=== PATIENT | female | born 1955 | race Two or more races ===

== ENCOUNTER 2016-11-22 13:34 | Emergency (ER) | payer MEDICARE, OTHER ==
--- NOTE | 2016-11-22 14:34 | ER Document Report ---
ED Cardiac - General Stated Complaint: CHEST PAIN Information source: Patient Notes: Patient is a 61-year-old female with past medical history including Prinzmetal angina, seizures, supposedly a myocardial infarction in 2008 "from being on a morphine drip with the reticulitis". She also states in 2001 she had a cardiac stent placed in [place] secondary to "heart spasms". Patient states today she developed some substernal chest "pressure" with radiation to her left shoulder. She states nausea and vomiting 2. She denies any diaphoresis. She also states a mild shortness of breath. She denies any calf pain, leg swelling, or recent trips or travel. Patient does state she's had some elevated blood pressure the last 2 weeks and recently had her lisinopril increased from 20 mg to 40 mg a day by her primary care physician Dr. Mata. TRAVEL OUTSIDE OF THE [place] IN LAST 30 DAYS: No - HPI Patient complains to provider of: Chest pain Was the onset of pain: Gradual Is the pain a: New problem Chest pain location: Substernal Quality of pain: Other - See above Chest pain radiation location: Left shoulder Severity now: None Severity at worst: Mild Pain level currently: Denies Cardiac risk factors: Hx [place] - See above Positive cardiac history: Yes Associated symptoms: Other - See above Exacerbated by: Denies Relieved by: Nothing Similar symptoms previously: Yes Recently seen / treated by doctor: Yes - Related Data Allergies/Adverse Reactions: ondansetron HCl [From Zofran] Allergy (Unknown, Verified 10/20/15 13:38) Sulfa (Sulfonamide Antibiotics) Allergy (Unknown, Verified 10/20/15 13:38) naproxen [Naproxen] Adverse Reaction (Unknown, Verified 10/20/15 13:38) betablockers Allergy (Uncoded 10/20/15 13:38) vicodin Adverse Reaction (Uncoded 05/12/16 22:07) Past Medical History - Social History Smoking Status: Unknown if Ever Smoked Cigarette use (# per day): No Chew tobacco use (# tins/day): No Smoking Education Provided: No Frequency of alcohol use: None Drug Abuse: None Family History: DM, Malignancy - Past Medical History Cardiac Medical History: Reports: Hx Heart Attack - x 4, Hx Hypercholesterolemia , Hx Hypertension Neurological Medical History: Reports: Hx Seizures Endocrine Medical History: Reports: Hx Diabetes Mellitus Type 1, Hx Diabetes Mellitus Type 2 GI Medical History: Reports: Hx Diverticulitis, Hx Gastroesophageal Reflux Disease Musculoskeltal Medical History: Reports Hx Multiple Sclerosis Psychiatric Medical History: Reports: Hx Depression Past Surgical History: Reports: Hx Abdominal Surgery, Hx Appendectomy, Hx Cardiac Catheterization - 1, Hx Section, Hx Cholecystectomy, Hx Kidney (Renal Surgery) - 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 Denies: Hx Genitourinary Surgery - Immunizations Immunizations up to date: Yes Hx Diphtheria, Pertussis, Tetanus Vaccination: Yes Hx Pneumococcal Vaccination: 01/18/11 Review of Systems - Review of Systems Constitutional: denies: Fever EENT: denies: Eye discharge, Nose discharge Cardiovascular: denies: Palpitations, Heart racing, Syncope, Dizziness Respiratory: denies: Short of breath Gastrointestinal: denies: Abdomen distended, Abdominal pain, Vomiting Genitourinary: denies: Dysuria Musculoskeletal: denies: Leg swelling Skin: Other - no hives. denies: Rash Neurological/Psychological: Other - no slurred speech -: Yes All other systems reviewed and negative Physical Exam - Vital signs Vitals: Resp Pulse Ox 18 95 11/22/16 13:48 11/22/16 13:48 Notes: Reviewed vital signs and nursing note as charted by RN. CONSTITUTIONAL: Alert and oriented and responds appropriately to questions. Well -appearing; well-nourished NECK: Supple without meningismus; non-tender; no cervical lymphadenopathy, no masses CARD: Regular rate and rhythm; no murmurs, no clicks, no rubs, no gallops; symmetric distal pulses RESP: Normal chest excursion without splinting or tachypnea; breath sounds clear and equal bilaterally; no wheezes, no rhonchi, no rales ABD/GI: Normal bowel sounds; non-distended; soft, non-tender, no rebound, no guarding; no palpable organomegaly or masses BACK: The back appears normal and is non-tender to palpation, there is no CVA tenderness EXT: Normal ROM in all joints; non-tender to palpation; no cyanosis, no effusions, no edema SKIN: Normal color for age and race; warm; dry; good turgor; capillary refill < 2 seconds; no acute lesions noted NEURO: Moves all extremities equally; Motor and sensory function intact PSYCH: The patient's mood and manner are appropriate. Grooming and personal hygiene are appropriate. Course - Re-evaluation Re-evalutation: EKG shows a heart of 100, sinus tachycardia, normal axis, no obvious ST elevation or depression. Flattening T waves in leads aVF, V5, with an inverted T-wave in V6. Old EKG has been obtained from September 2015 showing no obvious appreciable change. 11/22/16 14:33 Given the history and physical examination we will obtain a d-dimer, cardiac panel, and x-ray of the chest. Patient is currently pain-free and has been provided aspirin and nitroglycerin. I believe aortic dissection to be extremely unlikely. 11/22/16 17:28 CT chest shows no obvious pulmonary emboli. First troponin is unremarkable. 11/22/16 19:41 Repeat EKG shows a heart rate of 73, normal sinus rhythm, persistent poor R wave progression, no obvious ST elevation or depression. Persistent inverted T waves in leads V4 through V6. No change from previous EKG performed today. Again old EKG from 2014 shows no appreciable change. 11/22/16 19:43 Both sets of cardiac enzymes, x-ray of the chest, CTA of the chest, have been reviewed and are all unremarkable. Repeat EKG shows no change. Patient denies any chest pain at this time. Patient does admit to not taking her antiseizure medications appropriately. She states she has enough medications and does not need a refill at this time. - Vital Signs Vital signs: Temp Pulse Resp BP Pulse Ox 98.9 F 13 149/95 H 98 11/22/16 13:49 11/22/16 18:01 11/22/16 18:01 11/22/16 18:01 - Laboratory Result Diagrams: 11/22/16 14:30 11/22/16 14:30 Laboratory results interpreted by me: 11/22/16 11/22/16 14:30 14:30 D-Dimer 0.97 H Chloride 109 H BUN 30 H Est GFR (Non-Af Amer) 55 L Glucose 114 H Creatine Kinase 257 H Discharge - Discharge Clinical Impression: Chest pain Qualifiers: Chest pain type: unspecified Qualified Code(s): R07.9 - Chest pain, unspecified Condition: Good Disposition: HOME, SELF-CARE Additional Instructions: Come back immediately with any return of pain, change in location or quality of pain, shortness of breath, fevers, vomiting, or any other acute problems. Please make sure that you follow-up with your primary doctor as we have discussed and have helped expedite for you. Please take your antiseizure medications when you return home and take them regularly as directed.
[2016-11-22 14:39] LABS: ABSOLUTE EOSINOPHILS # (AUTO) 0.2 10^3/uL (0.0-0.6); ABSOLUTE LYMPHOCYTES (AUTO) 1.4 10^3/uL (0.5-4.7); ABSOLUTE MONOCYTES (AUTO) 0.4 10^3/uL (0.1-1.4); BASOPHILS % (AUTO) 0.6 % (0-2); EOSINOPHILS % (AUTO) 3.1 % (0-6); HEMATOCRIT 41.8 % (36.0-47.0); HEMOGLOBIN 13.9 g/dL (12.0-15.5); HGB HCT DIFFERENCE -0.1; MEAN CORPUSCULAR HEMOGLOBIN 30.1 pg (27.0-33.4); MEAN CORPUSCULAR HGB CONC 33.4 g/dL (32.0-36.0); MEAN CORPUSCULAR VOLUME 90 fl (80-97); RED BLOOD COUNT 4.64 10^6/uL (3.72-5.28); RED CELL DISTRIBUTION WIDTH 12.8 % (11.5-14.0); SEGMENTED NEUTROPHILS % (AUTO) 67.3 % (42-78); WHITE BLOOD COUNT 5.9 10^3/uL (4.0-10.5)
[2016-11-22 14:58] LABS: ALANINE AMINOTRANSFERASE 22 U/L (9-52); ALBUMIN 4.7 g/dL (3.5-5.0); ALKALINE PHOSPHATASE 47 U/L (38-126); ANION GAP 14 (5-19); ASPARTATE AMINO TRANSFERASE 26 U/L (14-36); BILIRUBIN,TOTAL 0.4 mg/dL (0.2-1.3); BLOOD UREA NITROGEN 30 mg/dL (7-20); CALCIUM 9.5 mg/dL (8.4-10.2); CARBON DIOXIDE 22 mmol/L (22-30); CHLORIDE 109 mmol/L (98-107); CREATINE KINASE 257 U/L (30-135); CREATININE RESULT 1.02 mg/dL (0.52-1.25); GLUCOSE 114 mg/dL (75-110); POTASSIUM 4.4 mmol/L (3.6-5.0); SODIUM 144.7 mmol/L (137-145); TOTAL PROTEIN 7.1 g/dL (6.3-8.2)
--- NOTE | 2016-11-22 14:58 | EKG REPORT ---
SEVERITY:- ABNORMAL ECG - SINUS TACHYCARDIA : Confirmed by: Maricel Darby MD 22-Nov-2016 14:57:45
[2016-11-22] MEDS ORDERED: PROMETHAZINE HCL INJ 25 MG/1 ML VIAL IV ONE (15:20)
[2016-11-22 15:21] LABS: TROPONIN I < 0.012 ng/mL
[2016-11-22] MEDS ORDERED: ACETAMINOPHEN 325 MG TABLET PO ONE (18:11)
[2016-11-22] MEDS ORDERED: MORPHINE SULFATE 10 MG/ML INJ IV ONE (20:00)
[2016-11-22 20:26] VITALS: BP 159/97
--- NOTE | 2016-11-22 21:46 | EKG REPORT ---
SEVERITY:- ABNORMAL ECG - SINUS RHYTHM ANTERIOR INFARCT, AGE INDETERMINATE BORDERLINE T ABNORMALITIES, INFERIOR LEADS : Confirmed by: Maricel Darby MD 22-Nov-2016 21:45:06
== END 2016-11-22 20:55 | disposition home or self-care (01) ==
LOC: ER 13:34
DX: R07.89 Other chest pain (principal); Z98.61 Coronary angioplasty status; R00.0 Tachycardia, unspecified; R11.2 Nausea with vomiting, unspecified; R06.02 Shortness of breath; I10 Essential (primary) hypertension; I25.2 Old myocardial infarction; E11.9 Type 2 diabetes mellitus without complications; Z79.899 Other long term (current) drug therapy; Z88.8 Allergy status to other drugs, medicaments and biological substances; Z88.2 Allergy status to sulfonamides; Z87.19 Personal history of other diseases of the digestive system; Z90.5 Acquired absence of kidney; Z91.14 Patient's other noncompliance with medication regimen
CPT/HCPCS: 93005; 99285; 96374; 96375; 36415; 82553; 82550; 85025; 80053; 84484; 85379; 71010; 71275; 93010; J2270; J2550

== ENCOUNTER → 2016-11-29 | Outpatient (CLI) | payer MEDICARE, OTHER ==
[2016-11-29 10:16] LABS: ALANINE AMINOTRANSFERASE 24 U/L (9-52); ALBUMIN 4.4 g/dL (3.5-5.0); ALKALINE PHOSPHATASE 48 U/L (38-126); ANION GAP 10 (5-19); ASPARTATE AMINO TRANSFERASE 25 U/L (14-36); BILIRUBIN,TOTAL 0.4 mg/dL (0.2-1.3); BLOOD UREA NITROGEN 19 mg/dL (7-20); CALCIUM 9.2 mg/dL (8.4-10.2); CARBON DIOXIDE 26 mmol/L (22-30); CHLORIDE 107 mmol/L (98-107); CREATINE KINASE 73 U/L (30-135); GLUCOSE 77 mg/dL (75-110); POTASSIUM 4.4 mmol/L (3.6-5.0); SODIUM 143.4 mmol/L (137-145); TOTAL PROTEIN 6.6 g/dL (6.3-8.2)
[2016-11-29 10:24] LABS: C-REACTIVE PROTEIN < 5.0 mg/L (<10.0)
[2016-11-30 08:40] LABS: COMPLEMENT C4 14 mg/dL (14-44)
[2016-11-30 08:47] LABS: COMPLEMENT C3 104 mg/dL (82-167)
[2016-11-30 14:42] LABS: COMPLEMENT TOTAL (CH50) 57 U/mL (42-60)
== END ==
LOC: OD 08:39
PROVIDERS: ATTEND Physician Assistant
DX: M79.1 Myalgia (principal); M13.0 Polyarthritis, unspecified
CPT/HCPCS: 36415; 80053; 82550; 85652; 86038; 86140; 86160; 86162; 86430

== ENCOUNTER → 2017-03-21 | Outpatient (CLI) | payer MEDICARE, OTHER ==
[2017-03-21 08:59] LABS: ABSOLUTE EOSINOPHILS # (AUTO) 0.2 10^3/uL (0.0-0.6); ABSOLUTE LYMPHOCYTES (AUTO) 1.5 10^3/uL (0.5-4.7); ABSOLUTE MONOCYTES (AUTO) 0.4 10^3/uL (0.1-1.4); ABSOLUTE NEUT (AUTO) 2.9 10^3/uL (1.7-8.2); BASOPHILS % (AUTO) 0.7 % (0-2); EOSINOPHILS % (AUTO) 3.3 % (0-6); HEMATOCRIT 39.1 % (36.0-47.0); HEMOGLOBIN 13.4 g/dL (12.0-15.5); HGB HCT DIFFERENCE 1.1; LYMPHOCYTES % (AUTO) 30.6 % (13-45); MEAN CORPUSCULAR HEMOGLOBIN 30.3 pg (27.0-33.4); MEAN CORPUSCULAR HGB CONC 34.2 g/dL (32.0-36.0); MEAN CORPUSCULAR VOLUME 89 fl (80-97); MONOCYTES % (AUTO) 7.4 % (3-13); RED BLOOD COUNT 4.41 10^6/uL (3.72-5.28); RED CELL DISTRIBUTION WIDTH 12.9 % (11.5-14.0)
[2017-03-21 09:24] LABS: ALANINE AMINOTRANSFERASE 25 U/L (9-52); ALBUMIN 4.1 g/dL (3.5-5.0); ALKALINE PHOSPHATASE 51 U/L (38-126); ANION GAP 9 (5-19); ASPARTATE AMINO TRANSFERASE 29 U/L (14-36); BILIRUBIN,DIRECT 0.3 mg/dL (0.0-0.4); BILIRUBIN,TOTAL 0.6 mg/dL (0.2-1.3); BLOOD UREA NITROGEN 19 mg/dL (7-20); CALCIUM 9.3 mg/dL (8.4-10.2); CARBON DIOXIDE 26 mmol/L (22-30); CHLORIDE 108 mmol/L (98-107); CHOLESTEROL 214.29 mg/dL (0-200); CREATININE RESULT 1.19 mg/dL (0.52-1.25); Direct HDL 41 mg/dL (>40); GLUCOSE 86 mg/dL (75-110); POTASSIUM 4.4 mmol/L (3.6-5.0); TOTAL PROTEIN 6.7 g/dL (6.3-8.2); TRIGLYCERIDES 228 mg/dL (<150)
[2017-03-21 09:35] LABS: DIRECT LDL 106 mg/dL (<100)
[2017-03-21 09:39] LABS: VLDL CHOLESTEROL 45.6 mg/dL (10-31)
== END ==
LOC: OD 07:43
PROVIDERS: ATTEND Internal Medicine
DX: E11.9 Type 2 diabetes mellitus without complications (principal); I10 Essential (primary) hypertension; E78.2 Mixed hyperlipidemia
CPT/HCPCS: 36415; 80053; 80061; 83036; 84443; 85025

== ENCOUNTER 2017-04-01 14:05 | Inpatient (IN) | payer MEDICARE, OTHER ==
--- NOTE | 2017-04-01 14:36 | ER Document Report ---
ED Cardiac - General Chief Complaint: Chest Pain > 30 Stated Complaint: CHEST PAIN Time Seen by Provider: 04/01/17 14:20 Mode of Arrival: Medic Information source: Patient TRAVEL OUTSIDE OF THE [place] IN LAST 30 DAYS: No - HPI Patient complains to provider of: Chest pain, Shortness of breath Was the onset of pain: Sudden Is the pain a: New problem Chest pain location: Substernal Quality of pain: Constant, Heaviness Severity now: Mild Severity at worst: Moderate Pain level currently: 3 Chest pain precipitating factors: At Rest Cardiac risk factors: Hx [place] Associated symptoms: Diaphoresis, Fever/chills, Lightheaded, Palpitations, Shortness of breath, Weakness Exacerbated by: Denies Relieved by: Nothing Similar symptoms previously: Yes Recently seen / treated by doctor: No Notes: Patient is a 61-year-old female with a history of MS, seizures, angina, diabetes , coronary artery disease, who reports [place] 4 in the past with LAD stent that was done in [place] around 2004 or 2005, she presents today complaining of chest pain, diaphoresis with cold sweats, generalized weakness, and nausea, symptoms started [facility] [employer] [facility], states she felt dizzy and lightheaded and nearly passed out, she does also report dyspnea on exertion - Related Data Allergies/Adverse Reactions: ondansetron HCl [From Zofran] Allergy (Unknown, Verified 10/20/15 13:38) Sulfa (Sulfonamide Antibiotics) Allergy (Unknown, Verified 10/20/15 13:38) naproxen [Naproxen] Adverse Reaction (Unknown, Verified 10/20/15 13:38) betablockers Allergy (Uncoded 10/20/15 13:38) vicodin Adverse Reaction (Uncoded 05/12/16 22:07) Past Medical History - General Information source: Patient - Social History Smoking Status: Unknown if Ever Smoked Family History: DM, Malignancy - Past Medical History Cardiac Medical History: Reports: Hx Heart Attack - x 4, Hx Hypercholesterolemia , Hx Hypertension Neurological Medical History: Reports: Hx Seizures Endocrine Medical History: Reports: Hx Diabetes Mellitus Type 1, Hx Diabetes Mellitus Type 2 GI Medical History: Reports: Hx Diverticulitis, Hx Gastroesophageal Reflux Disease Musculoskeltal Medical History: Reports Hx Multiple Sclerosis Psychiatric Medical History: Reports: Hx Depression Past Surgical History: Reports: Hx Abdominal Surgery, Hx Appendectomy, Hx Cardiac Catheterization - 1, Hx Section, Hx Cholecystectomy, Hx Kidney (Renal Surgery) - 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 Denies: Hx Genitourinary Surgery - Immunizations Immunizations up to date: Yes Hx Diphtheria, Pertussis, Tetanus Vaccination: Yes Hx Pneumococcal Vaccination: 01/18/11 Review of Systems - Review of Systems Constitutional: Chills, Diaphoresis, Weakness EENT: No symptoms reported Cardiovascular: Chest pain Respiratory: Short of breath Gastrointestinal: Nausea Genitourinary: No symptoms reported Female Genitourinary: No symptoms reported Musculoskeletal: No symptoms reported Skin: No symptoms reported Hematologic/Lymphatic: No symptoms reported Neurological/Psychological: No symptoms reported -: Yes All other systems reviewed and negative Physical Exam - Vital signs Vitals: Temp Resp Pulse Ox 98.7 F 17 100 04/01/17 14:16 04/01/17 14:16 04/01/17 14:16 Interpretation: Normal - General General appearance: Appears well, Alert - HEENT Head: Normocephalic, Atraumatic Eyes: Normal Pupils: PERRL - Respiratory Respiratory status: No respiratory distress Chest status: Nontender Breath sounds: Normal Chest palpation: Normal - Cardiovascular Rhythm: Regular Heart sounds: Normal auscultation Murmur: No - Abdominal Inspection: Normal Distension: No distension Bowel sounds: Normal Tenderness: Nontender Organomegaly: No organomegaly - Back Back: Normal, Nontender - Extremities General upper extremity: Normal inspection, Nontender, Normal color, Normal ROM , Normal temperature General lower extremity: Normal inspection, Nontender, Normal color, Normal ROM , Normal temperature, Normal weight bearing. No: Iván's sign - Neurological Neuro grossly intact: Yes Cognition: Normal Orientation: AAOx4 [place] Coma Scale Eye Opening: Spontaneous [place] Coma Scale Verbal: Oriented [place] Coma Scale Motor: Obeys Commands [place] Coma Scale Total: 15 Speech: Normal Motor strength normal: LUE, RUE, LLE, RLE Sensory: Normal - Psychological Associated symptoms: Normal affect, Normal mood - Skin Skin Temperature: Warm Skin Moisture: Dry Skin Color: Normal Course - Re-evaluation Re-evalutation: 04/01/17 17:12 Patient resting comfortably, she is pain-free after receiving 2 sublingual nitro in the emergency room, patient has a significant cardiac history, initial evaluation in the emergency room is negative, however we will admit her for a 23 hour observation to rule out ACS - Vital Signs Vital signs: Temp Pulse Resp BP Pulse Ox 98.7 F 21 H 110/58 L 94 04/01/17 14:16 04/01/17 17:01 04/01/17 17:01 04/01/17 17:01 - Laboratory Result Diagrams: 04/01/17 15:39 04/01/17 15:39 Laboratory results interpreted by me: 04/01/17 04/01/17 15:39 15:39 Plt Count 105 L Chloride 113 H Carbon Dioxide 20 L BUN 22 H Est GFR (Non-Af Amer) 54 L - Diagnostic Test Radiology reviewed: Image reviewed, Reports reviewed - EKG Interpretation by Me EKG shows normal: Sinus rhythm Rate: Normal Rhythm: NSR When compared to previous EKG there are: No significant change - Transfer of Care Care transferred to following provider: Dr Solis Discharge - Discharge Clinical Impression: Chest pain Qualifiers: Chest pain type: unspecified Qualified Code(s): R07.9 - Chest pain, unspecified Admitting Provider: Hospitalist Unit Admitted: Telemetry Referrals: KAPIL HIDALGO MD [Primary Care Provider] - Follow up as needed
--- NOTE | 2017-04-01 15:51 | RADIOLOGY REPORT (SQ) ---
EXAM DESCRIPTION: CHEST SINGLE VIEW COMPLETED DATE/TIME: 04/01/2017 3:27 pm REASON FOR STUDY: bed 16 cp COMPARISON: CT and radiographs from October 2016. NUMBER OF VIEWS: One view. TECHNIQUE: Single frontal radiographic view of the chest acquired. LIMITATIONS: None. FINDINGS: LUNGS AND PLEURA: No opacities, masses or pneumothorax. No pleural effusion. MEDIASTINUM AND HILAR STRUCTURES: No masses. Contour normal. HEART AND VASCULAR STRUCTURES: Heart normal in size. Normal vasculature. BONES: No acute findings. HARDWARE: None in the chest. OTHER: No other significant finding. IMPRESSION: NO SIGNIFICANT RADIOGRAPHIC FINDING IN THE CHEST. TECHNICAL DOCUMENTATION: JOB ID: [id number] [employer]- All Rights Reserved
[2017-04-01] MEDS: NITROGLYCERIN 0.4 MG/TAB 25 TAB/BOTTLE SL PRN ×2 (15:52→15:56)
[2017-04-01] MEDS ORDERED: METOCLOPRAMIDE HCL INJ/PF 10 MG/2 ML SDV IV ONE (16:01)
[2017-04-01 16:05] LABS: ABSOLUTE EOSINOPHILS # (AUTO) 0.1 10^3/uL (0.0-0.6); ABSOLUTE LYMPHOCYTES (AUTO) 1.5 10^3/uL (0.5-4.7); ABSOLUTE MONOCYTES (AUTO) 0.3 10^3/uL (0.1-1.4); ABSOLUTE NEUT (AUTO) 2.9 10^3/uL (1.7-8.2); EOSINOPHILS % (AUTO) 2.3 % (0-6); HEMATOCRIT 37.2 % (36.0-47.0); HEMOGLOBIN 12.8 g/dL (12.0-15.5); HGB HCT DIFFERENCE 1.2; LYMPHOCYTES % (AUTO) 31.1 % (13-45); MEAN CORPUSCULAR HEMOGLOBIN 30.7 pg (27.0-33.4); MEAN CORPUSCULAR HGB CONC 34.4 g/dL (32.0-36.0); MEAN CORPUSCULAR VOLUME 89 fl (80-97); MONOCYTES % (AUTO) 5.7 % (3-13); RED BLOOD COUNT 4.16 10^6/uL (3.72-5.28); SEGMENTED NEUTROPHILS % (AUTO) 59.9 % (42-78); WHITE BLOOD COUNT 4.8 10^3/uL (4.0-10.5)
[2017-04-01 16:06] LABS: ALANINE AMINOTRANSFERASE 23 U/L (9-52); ALBUMIN 4.1 g/dL (3.5-5.0); ALKALINE PHOSPHATASE 52 U/L (38-126); ANION GAP 10 (5-19); ASPARTATE AMINO TRANSFERASE 23 U/L (14-36); BILIRUBIN,DIRECT 0.3 mg/dL (0.0-0.4); BILIRUBIN,TOTAL 0.4 mg/dL (0.2-1.3); BLOOD UREA NITROGEN 22 mg/dL (7-20); CARBON DIOXIDE 20 mmol/L (22-30); CHLORIDE 113 mmol/L (98-107); CREATINE KINASE 56 U/L (30-135); CREATININE RESULT 1.03 mg/dL (0.52-1.25); GLUCOSE 88 mg/dL (75-110); LIPASE 219.1 U/L (23-300); POTASSIUM 4.6 mmol/L (3.6-5.0); SODIUM 143.4 mmol/L (137-145); TOTAL PROTEIN 6.8 g/dL (6.3-8.2)
[2017-04-01 16:17] LABS: CREATINE KINASE MB 0.65 ng/mL (<4.55)
[2017-04-01 16:18] LABS: TROPONIN I < 0.012 ng/mL
[2017-04-01] MEDS ORDERED: NORMAL SALINE 1000 ML 1,000 ML IV PRN (16:57)
--- NOTE | 2017-04-01 18:13 | PDOC H&P ---
History of Present Illness Admission Date/PCP: 04/01/17 17:15 KAPIL HIDALGO MD Patient complains of: Chest pain History of Present Illness: ESTEBAN PULIDO is a 61 year old female, history of coronary artery disease, multiple sclerosis, type 2 diabetes mellitus, hypertension, seizure disorder, hyperlipidemia presents to the emergency room because of chest pain of about 2 weeks duration. Patient has been dealing with on and off chest pain for quite a while until about 2 weeks it is more frequent. Patient also has intermittent abdominal discomfort for the past 2 weeks as well. Denies any chills or fever, sinus congestion, sore throat, or chest congestion. There is shortness of breath associated as well. Patient had several episodes of syncopal episode for a few seconds but not sustaining significant injuries. Syncope however has been present for several years. There is no nausea or vomiting. No melena hematochezia or hematemesis. No dysuria urgency or frequency. Because of the persistence of symptoms the patient went to the emergency room for evaluation and rest referred for observation. Patient is being followed by her primary care physician and reportedly she is being worked up for abdominal aneurysm. She has a new reservoir engineer in [facility] Dr. Mata. Past Medical History Past Medical History: Medication reconciliation pending verification from the patient's pharmacist Cardiac Medical History: Reports: Coronary Artery Disease, Myocardial Infarction - x 4, Hyperlipidema, Hypertension Neurological Medical History: Reports: Seizures, Other - Multiple sclerosis Endocrine Medical History: Reports: Diabetes Mellitus Type 1, Diabetes Mellitus Type 2 GI Medical History: Reports: Diverticulitis, Gastroesophageal Reflux Disease Psychiatric Medical History: Reports: Depression Past Surgical History Past Surgical History: Reports: Appendectomy, Cardiac Catheterization - 1, Section, Cholecystectomy Social History Information Source: Patient Smoking Status: Unknown if Ever Smoked - Patient denies smoking Frequency of Alcohol Use: None Hx Recreational Drug Use: No Drugs: None Hx Prescription Drug Abuse: No Family History Family History: DM, Malignancy Parental Family History Reviewed: Yes Children Family History Reviewed: Yes Sibling(s) Family History Reviewed.: Yes Medication/Allergy Home Medications: Aspirin [Aspirin 325 mg Tablet] 81 mg PO DAILY 11/20/11 Clopidogrel Bisulfate [Plavix 75 mg Tablet] 75 mg PO DAILY 11/20/11 Nitroglycerin [Nitrolingual 0.4 mg/dose [place]] 4.9 gm TL ASDIR PRN 11/20/11 Diltiazem HCl [Dilt-Cd] 300 mg PO BID 03/29/12 Diazepam [Valium 2 mg Tablet] 5 mg PO PRN PRN 05/25/13 Nitroglycerin [Nitro-Dur 10 mg (0.4MG/Hr) Transdermal Patch] 1 patch TOP PRN PRN 05/25/13 Promethazine HCl [Phenergan 25 mg Tablet] 25 mg PO ASDIR PRN #12 tablet Esomeprazole Magnesium [Nexium 24Hr] 40 mg PO QAM 05/12/16 Butalbit/Acetamin/Caff/Codeine [Bfihzi-Tasm-Gpgxeolzzdr-Codein] 1 tab PO Q8H 02/12 Dexlansoprazole [Dexilant 60 mg Capsule] 60 mg PO DAILY 04/01/17 Lisinopril [Lisinopril] 40 mg PO DAILY 04/01/17 Pregabalin [Lyrica] 150 mg PO TID 04/01/17 Spironolactone [Spironolactone] 25 mg PO DAILY 04/01/17 Topiramate [Topiramate] 100 mg PO QAM 04/01/17 Topiramate [Topiramate] 200 mg PO QHS 04/01/17 Allergies/Adverse Reactions: ondansetron HCl [From Zofran] Allergy (Unknown, Verified 10/20/15 13:38) Sulfa (Sulfonamide Antibiotics) Allergy (Unknown, Verified 10/20/15 13:38) naproxen [Naproxen] Adverse Reaction (Unknown, Verified 10/20/15 13:38) betablockers Allergy (Uncoded 10/20/15 13:38) vicodin Adverse Reaction (Uncoded 05/12/16 22:07) Review of Systems Constitutional: PRESENT: fatigue - Generalized. ABSENT: chills, fever(s), headache(s), night sweats, weight gain, weight loss Eyes: ABSENT: visual disturbances Ears: ABSENT: hearing changes Nose, Mouth, and Throat: ABSENT: mouth pain, sore throat Cardiovascular: PRESENT: chest pain, dyspnea on exertion. ABSENT: edema, orthropnea, palpitations Respiratory: PRESENT: dyspnea. ABSENT: cough, hemoptysis, sputum Gastrointestinal: PRESENT: abdominal pain - Intermittent vague, nonradiating on the left upper quadrant. ABSENT: constipation, diarrhea, hematemesis, hematochezia, melena, nausea, vomiting Genitourinary: ABSENT: difficulty urinating, dysuria, hematuria Musculoskeletal: ABSENT: joint swelling Integumentary: ABSENT: pruritus, rash, wounds Neurological: ABSENT: abnormal gait, abnormal speech, confusion, dizziness, focal weakness, syncope Psychiatric: ABSENT: anxiety, depression, homidical ideation, suicidal ideation Endocrine: ABSENT: cold intolerance, heat intolerance, polydipsia, polyuria Hematologic/Lymphatic: ABSENT: easy bleeding, easy bruising Physical Exam Vital Signs: Temp Pulse Resp BP Pulse Ox 98.7 F 21 H 110/58 L 94 04/01/17 14:16 04/01/17 17:01 04/01/17 17:01 04/01/17 17:01 General appearance: PRESENT: no acute distress, well-developed, well-nourished Head exam: PRESENT: atraumatic, normocephalic Eye exam: PRESENT: conjunctiva pink, EOMI, PERRLA. ABSENT: scleral icterus Ear exam: PRESENT: normal external ear exam. ABSENT: drainage Mouth exam: PRESENT: moist, neck supple, tongue midline Throat exam: ABSENT: post pharyngeal erythema, tonsillar erythema Neck exam: ABSENT: carotid bruit, JVD, lymphadenopathy, thyromegaly Respiratory exam: PRESENT: clear to auscultation otilio. ABSENT: rales, rhonchi, wheezes Cardiovascular exam: PRESENT: RRR. ABSENT: diastolic murmur, rubs, systolic murmur Pulses: PRESENT: normal dorsalis pedis pul Vascular exam: PRESENT: normal capillary refill GI/Abdominal exam: PRESENT: normal bowel sounds, soft. ABSENT: distended, guarding, mass, organolmegaly, rebound, tenderness Rectal exam: PRESENT: deferred Extremities exam: PRESENT: full ROM, other - Trace pretibial edema. ABSENT: calf tenderness, clubbing Neurological exam: PRESENT: alert, awake, oriented to person, oriented to place , oriented to time, oriented to situation Psychiatric exam: PRESENT: appropriate affect, normal mood. ABSENT: homicidal ideation, suicidal ideation Skin exam: PRESENT: dry, intact, warm. ABSENT: cyanosis, rash Results Impressions: Chest X-Ray 04/01/17 14:16 IMPRESSION: NO SIGNIFICANT RADIOGRAPHIC FINDING IN THE CHEST. Assessment & Plan - Diagnosis (1) Chest pain Qualifiers: Chest pain type: unspecified Qualified Code(s): R07.9 - Chest pain, unspecified Is this a current diagnosis for this admission?: Yes (2) Abdominal pain Qualifiers: Abdominal location: left upper quadrant Qualified Code(s): R10.12 - Left upper quadrant pain Is this a current diagnosis for this admission?: Yes (3) Coronary artery disease Qualifiers: Coronary Disease-Associated Artery/Lesion type: [place] artery [place] vs. transplanted heart: [place] heart Associated angina: angina presence unspecified Qualified Code(s): I25.10 - Atherosclerotic heart disease of [place] coronary artery without angina pectoris Is this a current diagnosis for this admission?: Yes (4) Multiple sclerosis Is this a current diagnosis for this admission?: Yes (5) Seizure disorder Is this a current diagnosis for this admission?: Yes (6) Type 2 diabetes mellitus Qualifiers: Diabetes mellitus complication status: with unspecified complications Diabetes mellitus group home insulin use: without group home use Qualified Code(s): E11.8 - Type 2 diabetes mellitus with unspecified complications; Z79.4 - termite technician (current) use of insulin Is this a current diagnosis for this admission?: Yes (7) Hyperlipidemia Qualifiers: Hyperlipidemia type: unspecified Qualified Code(s): E78.5 - Hyperlipidemia, unspecified Is this a current diagnosis for this admission?: Yes (8) GERD (gastroesophageal reflux disease) Qualifiers: Esophagitis presence: without esophagitis Qualified Code(s): K21.9 - Gastro-esophageal reflux disease without esophagitis Is this a current diagnosis for this admission?: Yes (9) Essential hypertension Is this a current diagnosis for this admission?: Yes (10) Depression Qualifiers: Depression Type: unspecified Qualified Code(s): F32.9 - Major depressive disorder, single episode, unspecified Is this a current diagnosis for this admission?: Yes - Time Time Spent: 50 to 70 Minutes - Plan Summary Plan Summary: The patient will be admitted to observation. We will obtain serial cardiac enzymes and if negative we will proceed with a stress test. I will put the patient on supplemental oxygen, nitroglycerin and continue her antiplatelet therapy with aspirin and Plavix. DVT prophylaxis with Lovenox will be placed. On discharge patient encouraged to have outpatient event recorder w/ her reservoir engineer. Further testing depends on the initial evaluation as outlined above.
[2017-04-01] MEDS ORDERED: NITROGLYCERIN 0.4 MG/TAB 25 TAB/BOTTLE SL PRN (18:41)
[2017-04-01] MEDS ORDERED: NITROGLYCERIN 2% OINTMENT 1 GM PACKET TP ONE (19:45)
[2017-04-01] MEDS ORDERED: PREGABALIN 75 MG CAPSULE PO ONE (19:45)
[2017-04-01 20:36] LABS: CREATINE KINASE MB 0.88 ng/mL (<4.55)
[2017-04-01 20:45] LABS: TROPONIN I < 0.012 ng/mL
[2017-04-01] MEDS: TOPIRAMATE 100 MG TABLET PO SCH (21:23)
[2017-04-01] MEDS: HYDROMORPHONE HCL 2 MG TABLET PO PRN (21:24)
[2017-04-01] MEDS: DIAZEPAM 5 MG TABLET PO PRN (21:33)
--- NOTE | 2017-04-01 23:42 | EKG REPORT ---
SEVERITY:- ABNORMAL ECG - SINUS RHYTHM MULTIPLE VENTRICULAR PREMATURE COMPLEXES CONSIDER ANTEROSEPTAL INFARCT NONSPECIFIC T ABNORMALITIES, LATERAL LEADS : Confirmed by: Marley Kc 01-Apr-2017 23:41:49
[2017-04-02] MEDS: NITROGLYCERIN 2% OINTMENT 1 GM PACKET TP SCH ×3 (01:32→13:48)
[2017-04-02] MEDS: HYDROMORPHONE HCL 2 MG TABLET PO PRN ×3 (01:57→22:03)
[2017-04-02] MEDS: DIAZEPAM 5 MG TABLET PO PRN (02:01)
[2017-04-02] MEDS ORDERED: OXYCODONE HCL IR 5 MG TABLET PO ONE (02:30)
[2017-04-02 02:38] LABS: ADD ON TESTING BLD IN LAB ACKNOWLEDGE
[2017-04-02 02:40] LABS: CREATINE KINASE MB 0.67 ng/mL (<4.55)
[2017-04-02 02:43] LABS: TROPONIN I < 0.012 ng/mL
[2017-04-02 02:46] LABS: APPEARANCE,URINE CLEAR; BILIRUBIN,URINE NEGATIVE (NEGATIVE); GLUCOSE, URINE NEGATIVE (NEGATIVE); KETONES,URINE NEGATIVE (NEGATIVE); LEUKOCYTE ESTERASE,URINE SMALL (NEGATIVE); NITRITE,URINE NEGATIVE (NEGATIVE); PROTEIN,URINE NEGATIVE (NEGATIVE); URINE SPECIFIC GRAVITY 1.008; UROBILINOGEN,URINE NEGATIVE mg/dL (<2.0)
[2017-04-02 02:49] LABS: MAGNESIUM 2.1 mg/dL (1.6-2.3)
[2017-04-02 03:05] LABS: URINE METHADONE SCREEN NEGATIVE; URINE PHENCYCLIDINE SCREEN NEGATIVE
[2017-04-02 03:32] LABS: URINE BARBITURATES SCREEN UNCONFIRMED POSITIVE; URINE OPIATES LOW UNCONFIRMED POSITIVE
[2017-04-02] MEDS ORDERED: HYDROMORPHONE HCL 2 MG TABLET PO PRN (05:43)
[2017-04-02] MEDS: LANSOPRAZOLE 30 MG TAB.RAP.DR PO SCH ×2 (05:53→16:28)
[2017-04-02] MEDS ORDERED: DIAZEPAM 5 MG TABLET PO PRN (07:04)
[2017-04-02] MEDS: TOPIRAMATE 100 MG TABLET PO SCH ×2 (08:00→21:21)
[2017-04-02] MEDS: ENOXAPARIN SODIUM INJ 40 MG/0.4 ML DISP.SYRIN SUBCUT SCH (08:00)
[2017-04-02 09:29] LABS: CREATINE KINASE MB 0.89 ng/mL (<4.55)
[2017-04-02 09:32] LABS: TROPONIN I < 0.012 ng/mL
[2017-04-02] MEDS ORDERED: LISINOPRIL 10 MG TABLET PO SCH (10:00)
[2017-04-02] MEDS ORDERED: ONDANSETRON HCL INJ/PF 4 MG/2 ML SDV IV PRN (11:19)
[2017-04-02] MEDS ORDERED: REGADENOSON INJ 0.4 MG/5 ML DISP.SYRIN IV ONE (11:33)
[2017-04-02] MEDS: PROMETHAZINE HCL 25 MG TABLET PO PRN (11:43)
[2017-04-02] MEDS: CLOPIDOGREL BISULFATE 75 MG TABLET PO SCH (12:08)
[2017-04-02] MEDS: PREGABALIN 75 MG CAPSULE PO SCH ×3 (12:08→17:14)
[2017-04-02] MEDS: DOCUSATE SODIUM 100 MG CAPSULE PO SCH ×2 (12:09→17:14)
[2017-04-02] MEDS: ASPIRIN 81 MG TABLET, CHEWABLE PO SCH (12:10)
[2017-04-02] MEDS ORDERED: ISOSORBIDE MONONITRATE 60 MG TAB.ER.24H PO SCH (16:00)
[2017-04-02] MEDS ORDERED: HYDROMORPHONE HCL INJ/PF 2 MG/ML AMPULE IV PRN (16:04)
--- NOTE | 2017-04-02 16:10 | PDOC PROGRESS REPORT ---
Subjective Progress Note for:: 04/02/17 Subjective:: Patient had chest pain earlier this morning but it has resolved. Denies nausea or vomiting nor any diaphoresis. There is no shortness of breath associated as well. No cough or pleurisy. No PND orthopnea. No palpitations dizziness associated as well. Patient underwent stress test and denies having any chest pain during the procedure. Physical Exam Vital Signs: Temp Pulse Resp BP Pulse Ox 97.6 F 82 16 150/85 H 99 04/02/17 11:33 04/02/17 14:00 04/02/17 11:33 04/02/17 11:33 04/02/17 11:33 Intake & Output 04/01/17 04/02/17 04/03/17 06:59 06:59 06:59 Output Total 900 Balance -900 Weight 56.24 kg General appearance: PRESENT: no acute distress, cooperative Head exam: PRESENT: normocephalic Eye exam: PRESENT: conjunctiva pink, EOMI Mouth exam: PRESENT: moist, neck supple Neck exam: ABSENT: JVD Respiratory exam: PRESENT: clear to auscultation otilio. ABSENT: rhonchi, wheezes Cardiovascular exam: PRESENT: RRR. ABSENT: gallop GI/Abdominal exam: PRESENT: hypoactive bowel sounds, soft. ABSENT: distended, tenderness Extremities exam: ABSENT: pedal edema Neurological exam: PRESENT: alert, awake, oriented to situation Skin exam: PRESENT: dry, warm. ABSENT: cyanosis Results Laboratory Results: 04/01/17 04/02/17 21:25 02:08 Magnesium 2.1 Urine Color STRAW Urine Appearance CLEAR Urine pH 7.0 Ur Specific [place] 1.008 Urine Protein NEGATIVE Urine Glucose (UA) NEGATIVE Urine Ketones NEGATIVE Urine Blood NEGATIVE Urine Nitrite NEGATIVE Ur Leukocyte Esterase SMALL H Urine WBC (Auto) 2 Urine RBC (Auto) 0 04/01/17 04/01/17 04/02/17 20:00 20:00 02:08 Creatine Kinase 55 64 CK-MB (CK-2) 0.88 Troponin I < 0.012 04/02/17 04/02/17 04/02/17 02:08 08:45 08:45 Creatine Kinase 47 CK-MB (CK-2) 0.67 0.89 Troponin I < 0.012 < 0.012 Impressions: Chest X-Ray 06/04/17 14:16 IMPRESSION: NO SIGNIFICANT RADIOGRAPHIC FINDING IN THE CHEST. Assessment & Plan - Diagnosis (1) Chest pain Qualifiers: Chest pain type: unspecified Qualified Code(s): R07.9 - Chest pain, unspecified Is this a current diagnosis for this admission?: Yes (2) Abdominal pain Qualifiers: Abdominal location: left upper quadrant Qualified Code(s): R10.12 - Left upper quadrant pain Is this a current diagnosis for this admission?: Yes (3) Coronary artery disease Qualifiers: Coronary Disease-Associated Artery/Lesion type: [place] artery [place] vs. transplanted heart: [place] heart Associated angina: angina presence unspecified Qualified Code(s): I25.10 - Atherosclerotic heart disease of [place] coronary artery without angina pectoris Is this a current diagnosis for this admission?: Yes (4) Multiple sclerosis Is this a current diagnosis for this admission?: Yes (5) Seizure disorder Is this a current diagnosis for this admission?: Yes (6) Type 2 diabetes mellitus Qualifiers: Diabetes mellitus complication status: with unspecified complications Diabetes mellitus terminal operations supervisor insulin use: without terminal operations supervisor use Qualified Code(s): E11.8 - Type 2 diabetes mellitus with unspecified complications; Z79.4 - [facility] (current) use of insulin Is this a current diagnosis for this admission?: Yes (7) Hyperlipidemia Qualifiers: Hyperlipidemia type: unspecified Qualified Code(s): E78.5 - Hyperlipidemia, unspecified Is this a current diagnosis for this admission?: Yes (8) GERD (gastroesophageal reflux disease) Qualifiers: Esophagitis presence: without esophagitis Qualified Code(s): K21.9 - Gastro-esophageal reflux disease without esophagitis Is this a current diagnosis for this admission?: Yes (9) Essential hypertension Is this a current diagnosis for this admission?: Yes (10) Depression Qualifiers: Depression Type: unspecified Qualified Code(s): F32.9 - Major depressive disorder, single episode, unspecified Is this a current diagnosis for this admission?: Yes - Time Time Spent with patient: 25-34 minutes - Plan Summary Plan Summary: The patient underwent nuclear stress test earlier. Cardiology reported fixed defect with associated minimal reversible defect on the interventricular septum and apex area where patient had a fix scar. Recommendation was to maximize medical therapy and if chest pain recurs for cardiac catheterization. We will therefore begin the patient on long-acting nitrates with Imdur, add Ranexa. Patient is allergic to beta-blockers. We are going to continue her antiplatelet therapy. In the meantime we will resume her Cardizem but on the lower dose she was taking before. If the patient is chest pain-free in the morning we will discharge her home.
--- NOTE | 2017-04-02 18:58 | DRAGON STRESS TEST REPORT ---
Intravenous Lexiscan Cardiolite stress test using single photon emmision computerized tomography. Date of procedure: 04/02/2017. Ordering Provider: Dr. Solis. Patient's status : Inpatient. 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 The patient also has a history of coronary artery spasm. Coronary risk factors: Age, diabetes mellitus type 2 insulin requiring, hypertension, and dyslipidemia. Resting EKG:Sinus Rhythm. Inferolateral ST-T changes. Stress EKG:[ No changes of ischemia. The patient had no chest pain or discomfort, and there was no arrhythmias seen. Reason for termination: Protocol. Conclusions: Normal EKG and hemodynamic response to IV Lexiscan. Nuclear data: At rest the patient was given 10.96 millicuries of technetium 99m sestamibi injected intravenously. As per protocol rest non gated SPECT images were obtained. Subsequently the patient was given intravenous Lexiscan at a dose of 0.4 mg in 5 mL intravenously, followed by flush with normal saline. Subsequently the stress dose of 32.1 millicuries of technetium 99m sestamibi was injected intravenously. As per protocol stress gated images were obtained. Nuclear interpretation: Review of images showed that there was liver and bowel contamination artifact of the inferior wall. There is a perfusion defect involving the apical interventricular septum, and left ventricle apex which is slightly more prominent in the stress images compared with the rest images this area has very severe to be diminished motion contraction and thickening of the gated study. The rest of the segments of the myocardium had normal perfusion at rest, and normal perfusion post stress with IV Lexiscan. The rest of the segments of the myocardium had normal motion, contraction, and thickening by gated study. T. I D. ratio was normal at 1.09. Computer read rest, and stress left ventricular ejection fraction were 47 %, and 46 %, respectively. Conclusion: 1. There is minimal scintigraphic evidence of Lexiscan induced myocardial ischemia, in a setting of scar/MT involving the apical interventricular septum, and the left ventricular apex. 2. There is mildly reduced LV ejection fraction consistent with ischemic cardiomyopathy. Recommendations: 1. Aggressive treatment of coronary artery disease, hypertension, diabetes mellitus, and dyslipidemia 2. Check echo for LV ejection fraction correlation 3.Aggressive risk factor modification, and treating the underlying co- morbidities. [facility]
[2017-04-02] MEDS: RANOLAZINE 500 MG TAB.SR.12H PO SCH (21:21)
[2017-04-02] MEDS ORDERED: DILTIAZEM HCL 180 MG CAPSULE.CR PO SCH (22:00)
[2017-04-03] MEDS ORDERED: NORMAL SALINE 500 ML IV ONE (00:45)
[2017-04-03] MEDS ORDERED: HYDROMORPHONE HCL INJ/PF 2 MG/ML AMPULE IV PRN (01:27)
[2017-04-03] MEDS: LANSOPRAZOLE 30 MG TAB.RAP.DR PO SCH ×2 (05:54→17:42)
[2017-04-03] MEDS: TOPIRAMATE 100 MG TABLET PO SCH ×2 (08:42→21:07)
[2017-04-03] MEDS: ENOXAPARIN SODIUM INJ 40 MG/0.4 ML DISP.SYRIN SUBCUT SCH (08:43)
[2017-04-03] MEDS: PREGABALIN 75 MG CAPSULE PO SCH ×3 (10:44→17:42)
[2017-04-03] MEDS: ASPIRIN 81 MG TABLET, CHEWABLE PO SCH (10:44)
[2017-04-03] MEDS: LISINOPRIL 10 MG TABLET PO SCH (10:44)
[2017-04-03] MEDS: DOCUSATE SODIUM 100 MG CAPSULE PO SCH ×2 (10:45→17:42)
[2017-04-03] MEDS: CLOPIDOGREL BISULFATE 75 MG TABLET PO SCH (10:45)
[2017-04-03] MEDS: ISOSORBIDE MONONITRATE 60 MG TAB.ER.24H PO SCH ×2 (10:45→21:07)
[2017-04-03] MEDS: RANOLAZINE 500 MG TAB.SR.12H PO SCH ×2 (10:45→21:08)
[2017-04-03] MEDS: DILTIAZEM HCL 180 MG CAPSULE.CR PO SCH ×2 (10:45→21:08)
[2017-04-03] MEDS: HYDROMORPHONE HCL 2 MG TABLET PO PRN (12:34)
--- NOTE | 2017-04-03 13:17 | PDOC PROGRESS REPORT ---
Subjective Progress Note for:: 04/03/17 Subjective:: She has some chest pain when she was ambulating in the [place] this morning Physical Exam Vital Signs: Temp Pulse Resp BP Pulse Ox 97.4 F 72 16 133/81 H 95 04/03/17 11:02 04/03/17 11:02 04/03/17 11:02 04/03/17 11:02 04/03/17 11:02 Intake & Output 04/02/17 04/03/17 04/04/17 06:59 06:59 06:59 Intake Total 1750 Output Total 900 300 Balance -900 1450 Weight 56.24 kg General appearance: PRESENT: no acute distress Eye exam: PRESENT: conjunctiva pink. ABSENT: scleral icterus Mouth exam: PRESENT: moist, tongue midline Neck exam: ABSENT: carotid bruit, JVD, lymphadenopathy, thyromegaly Respiratory exam: PRESENT: clear to auscultation otilio. ABSENT: rales, rhonchi, wheezes Cardiovascular exam: PRESENT: RRR. ABSENT: diastolic murmur, rubs, systolic murmur Vascular exam: PRESENT: normal capillary refill GI/Abdominal exam: PRESENT: normal bowel sounds, soft. ABSENT: distended, guarding, mass, organolmegaly, rebound, tenderness Extremities exam: ABSENT: calf tenderness, clubbing, pedal edema Neurological exam: PRESENT: alert, awake, oriented to person, oriented to place , oriented to time, oriented to situation, CN II-XII grossly intact. ABSENT: motor sensory deficit Psychiatric exam: PRESENT: appropriate affect Skin exam: PRESENT: dry, intact, warm. ABSENT: cyanosis, rash Results Laboratory Results: 04/01/17 04/01/17 04/02/17 20:00 20:00 02:08 Creatine Kinase 55 64 CK-MB (CK-2) 0.88 Troponin I < 0.012 04/02/17 04/02/17 04/02/17 02:08 08:45 08:45 Creatine Kinase 47 CK-MB (CK-2) 0.67 0.89 Troponin I < 0.012 < 0.012 Impressions: Chest X-Ray 04/01/17 14:16 IMPRESSION: NO SIGNIFICANT RADIOGRAPHIC FINDING IN THE CHEST. Assessment & Plan - Diagnosis (1) Coronary artery disease Qualifiers: Coronary Disease-Associated Artery/Lesion type: [place] artery [place] vs. transplanted heart: [place] heart Associated angina: angina presence unspecified Qualified Code(s): I25.10 - Atherosclerotic heart disease of [place] coronary artery without angina pectoris Is this a current diagnosis for this admission?: YesPlan: Patient was admitted with chest pain and had a stress test that showed some mild reversible ischemia. She was started on Imdur and Ranexa and continues to have dyspnea on exertion along with angina. Because of this she needs a cardiac catheterization and evaluation. Will change from observation to inpatient. The case was discussed with Dr. Tapia at [facility] who agrees to accept the patient in transfer tomorrow for cardiac catheterization. (2) Essential hypertension Is this a current diagnosis for this admission?: Yes (3) GERD (gastroesophageal reflux disease) Qualifiers: Esophagitis presence: without esophagitis Qualified Code(s): K21.9 - Gastro-esophageal reflux disease without esophagitis Is this a current diagnosis for this admission?: Yes (4) Hyperlipidemia Qualifiers: Hyperlipidemia type: unspecified Qualified Code(s): E78.5 - Hyperlipidemia, unspecified Is this a current diagnosis for this admission?: Yes (5) Multiple sclerosis Is this a current diagnosis for this admission?: Yes (6) Seizure disorder Is this a current diagnosis for this admission?: Yes (7) Type 2 diabetes mellitus Qualifiers: Diabetes mellitus complication status: with unspecified complications Diabetes mellitus laborer marine terminal insulin use: without nursing home use Qualified Code(s): E11.8 - Type 2 diabetes mellitus with unspecified complications; Z79.4 - alf (current) use of insulin Is this a current diagnosis for this admission?: YesPlan: Continue with sliding scale insulin. - Time Time Spent with patient: 25-34 minutes - Inpatient Certification Medical Necessity: Need Close Monitoring Due to Risk of Patient Decompensation - Plan Summary Plan Summary: Patient will be transferred to [facility] tomorrow morning for cardiac catheterization.
[2017-04-03] MEDS: DIAZEPAM 5 MG TABLET PO PRN (17:43)
--- NOTE | 2017-04-03 18:56 | PDOC TRANSFER SUMMARY ---
General Admission Date/PCP: 04/03/17 13:13 KAPIL HIDALGO MD Transfer Date: 04/04/17 Accepting Facility: [facility] Accepting Physician: Dr. Tapia Resuscitation Status: Full Code - Transfer Diagnosis (1) Coronary artery disease Is this a current diagnosis for this admission?: YesDiagnosis Summary: Stress test showed some small apical reversible ischemia. Treated initially with Imdur and Ranexa but continued to have dyspnea on exertion and angina. (2) Essential hypertension Is this a current diagnosis for this admission?: Yes (3) GERD (gastroesophageal reflux disease) Is this a current diagnosis for this admission?: Yes (4) Hyperlipidemia Is this a current diagnosis for this admission?: Yes (5) Multiple sclerosis Is this a current diagnosis for this admission?: Yes (6) Seizure disorder Is this a current diagnosis for this admission?: Yes (7) Type 2 diabetes mellitus Is this a current diagnosis for this admission?: Yes - Transfer Medications Home Medications: Aspirin [Adult Low Dose Aspirin EC] 81 mg PO DAILY 04/02/17 Butalbit/Acetamin/Caff/Codeine [Fioricet-Cod 50-783-28-30 Cap] 1 cap PO Q8HP PRN 04/02/17 Clopidogrel Bisulfate [Plavix 75 mg Tablet] 75 mg PO DAILY 04/02/17 Dexlansoprazole [Dexilant 60 mg Capsule] 60 mg PO DAILY 04/02/17 Diazepam [Valium 5 mg Tablet] 5 mg PO DAILYP PRN 04/02/17 Diltiazem HCl [Cardizem Cd] 300 mg PO Q12 04/02/17 Esomeprazole Mag Trihydrate [Nexium] 40 mg PO QAM 04/02/17 Hydromorphone HCl [Dilaudid] 4 mg PO Q8HP PRN 04/02/17 Lisinopril [Zestril] 40 mg PO DAILY 04/02/17 Multivitamin [Daily Multiple Vitamin] 1 tab PO DAILY 04/02/17 Nitroglycerin [Nitroglycerin Patch] 0.8 mg TOP QHS 04/02/17 Nitroglycerin [Nitrolingual] 0.4 mg SL Q5MP PRN 04/02/17 Pregabalin [Lyrica] 150 mg PO Q8 04/02/17 Promethazine HCl [Phenergan 25 mg Tablet] 25 mg PO Q4HP PRN 04/02/17 Spironolactone [Aldactone 25 mg Tablet] 25 mg PO DAILY 04/02/17 Topiramate [Topamax 100 mg Tablet] 100 mg PO QAM 04/02/17 Topiramate [Topamax 100 mg Tablet] 200 mg PO QPM 04/02/17 Transfer Medications: Current Medications Acetaminophen (Tylenol 325 Mg Tablet) 650 mg PO Q4HP PRN PRN Reason: fever Stop: 05/01/17 18:13 Aspirin (Aspirin 81 Mg Chewable Tablet) 81 mg PO DAILY [facility] Stop: 05/02/17 09:59 Last Admin: 04/03/17 10:44 Dose: 81 mg Clopidogrel Bisulfate (Plavix 75 Mg Tablet) 75 mg PO DAILY [facility] Stop: 05/02/17 09:59 Last Admin: 04/03/17 10:45 Dose: 75 mg Diazepam (Valium 5 Mg Tablet) 5 mg PO Q8HP PRN PRN Reason: ANXIETY Stop: 04/08/17 18:37 Last Admin: 04/03/17 17:43 Dose: 5 mg Diltiazem HCl (Cardizem Cd 180 Mg Capsule) 180 mg PO Q12 [facility] Stop: 05/02/17 09:59 Last Admin: 04/03/17 10:45 Dose: 180 mg Docusate Sodium (Colace 100 Mg Capsule) 100 mg PO BID [facility] Stop: 05/02/17 09:59 Last Admin: 04/03/17 17:42 Dose: 100 mg Enoxaparin Sodium (Lovenox Inj 40 Mg/0.4 Ml Disp.Syrin) 40 mg SUBCUT QAM [facility] Stop: 05/02/17 07:59 Last Admin: 04/03/17 08:43 Dose: Not Given Hydromorphone HCl (Dilaudid 2 Mg Tablet) 4 mg PO Q8HP PRN PRN Reason: pain Stop: 04/09/17 05:42 Last Admin: 04/03/17 12:34 Dose: 4 mg Hydromorphone HCl (Dilaudid Inj/Pf 2 Mg/Ml Ampule) 1 mg IV Q8HP PRN Stop: 04/09/17 16:03 Isosorbide Mononitrate (Imdur 60 Mg Tablet.Er) 60 mg PO Q12 [facility] Stop: 05/03/17 09:59 Last Admin: 04/03/17 10:45 Dose: 60 mg Lansoprazole (Prevacid 30 Mg Odt Tablet) 30 mg PO BID@0600,1700 [facility] Stop: 05/02/17 05:59 Last Admin: 04/03/17 17:42 Dose: 30 mg Lisinopril (Prinivil 10 Mg Tablet) 40 mg PO DAILY [facility] Stop: 05/02/17 09:59 Last Admin: 04/03/17 10:44 Dose: 40 mg Nitroglycerin (Nitrostat 0.4 Mg (1/150 Gr) Tabs 25/Bottle) 1 tab SL Q5MP PRN PRN Reason: chest pain Stop: 05/01/17 15:47 Pregabalin (Lyrica 75 Mg Capsule) 150 mg PO TID [facility] Stop: 05/02/17 09:59 Last Admin: 04/03/17 17:42 Dose: 150 mg Promethazine HCl (Phenergan 25 Mg Tablet) 25 mg PO Q6HP PRN PRN Reason: FOR NAUSEA/VOMITING Stop: 05/02/17 11:36 Last Admin: 04/02/17 11:43 Dose: 25 mg Ranolazine (Ranexa 500 Mg Tab.Sr) 500 mg PO Q12 [facility] Stop: 05/02/17 21:59 Last Admin: 04/03/17 10:45 Dose: 500 mg Sodium Chloride (Saline Flush 2.5 Ml Monoject Prefil Syrin) 2.5 ml IV Q8 [facility] Stop: 05/01/17 21:59 Last Admin: 04/03/17 13:10 Dose: 2.5 ml Topiramate (Topamax 100 Mg Tablet) 100 mg PO QAM [facility] Stop: 05/02/17 07:59 Last Admin: 04/03/17 08:42 Dose: 100 mg Topiramate (Topamax 100 Mg Tablet) 200 mg PO QHS [facility] Stop: 05/01/17 21:59 Last Admin: 04/02/17 21:21 Dose: 200 mg - Allergies Allergies/Adverse Reactions: ondansetron HCl [From Zofran] Allergy (Unknown, Verified 10/20/15 13:38) Sulfa (Sulfonamide Antibiotics) Allergy (Unknown, Verified 10/20/15 13:38) naproxen [Naproxen] Adverse Reaction (Unknown, Verified 10/20/15 13:38) betablockers Allergy (Uncoded 10/20/15 13:38) vicodin Adverse Reaction (Uncoded 05/12/16 22:07) - Diet/Activity Discharge Diet: Cardiac Hospital Course Hospital Course: 61-year-old female with history of coronary artery disease. Her last heart cath was about 10 years ago in [place]. The patient presented with chest pain and had negative cardiac enzymes. The patient then underwent a stress test and was found to have a small amount of reversible ischemia. The patient was treated medically and was started on Imdur and Ranexa. In spite of this the patient continued to have dyspnea on exertion as well as substernal chest pain. It is not clear whether all of her symptoms are related to her coronary artery disease or not. Because of the question it was decided that she would benefit from a cardiac catheterization. [facility] was contacted and graciously agreed to accept the patient in transfer for a cardiac catheterization. Her other medical problems were stable during this hospitalization. Physical Exam Vital Signs: Temp Pulse Resp BP Pulse Ox 98.0 F 77 16 100/58 L 94 04/03/17 15:58 04/03/17 15:58 04/03/17 15:58 04/03/17 15:58 04/03/17 15:58 Intake & Output 04/02/17 04/03/17 04/04/17 06:59 06:59 06:59 Intake Total 2350 Balance 2350 General appearance: PRESENT: no acute distress Eye exam: PRESENT: conjunctiva pink. ABSENT: scleral icterus Mouth exam: PRESENT: moist, tongue midline Neck exam: ABSENT: JVD Respiratory exam: PRESENT: clear to auscultation otilio. ABSENT: rales, rhonchi, wheezes Cardiovascular exam: PRESENT: RRR. ABSENT: diastolic murmur, rubs, systolic murmur GI/Abdominal exam: PRESENT: normal bowel sounds, soft. ABSENT: distended, guarding, mass, organolmegaly, rebound, tenderness Extremities exam: ABSENT: calf tenderness, clubbing, pedal edema Neurological exam: PRESENT: alert, awake, oriented to person, oriented to place , oriented to time, oriented to situation, CN II-XII grossly intact. ABSENT: motor sensory deficit Psychiatric exam: PRESENT: appropriate affect Skin exam: PRESENT: dry, intact, warm. ABSENT: cyanosis, rash Results Impressions: Chest X-Ray 04/01/17 14:16 IMPRESSION: NO SIGNIFICANT RADIOGRAPHIC FINDING IN THE CHEST. Plan Discharge Plan: Transfer to [facility] for cardiac catheterization. Dr. Tapia is the accepting physician Time Spent: Greater than 30 Minutes
[2017-04-04] MEDS ORDERED: LEVETIRACETAM 500 MG/NACL-ISO 500 MG/100 ML RTUPB IV ONE ×2 (02:30→02:35)
[2017-04-04] MEDS: HYDROMORPHONE HCL 2 MG TABLET PO PRN (02:31)
[2017-04-04] MEDS: ACETAMINOPHEN 325 MG TABLET PO PRN ×2 (03:09→19:51)
[2017-04-04] MEDS: LANSOPRAZOLE 30 MG TAB.RAP.DR PO SCH ×2 (05:40→18:01)
[2017-04-04 06:03] LABS: ABSOLUTE EOSINOPHILS # (AUTO) 0.1 10^3/uL (0.0-0.6); ABSOLUTE LYMPHOCYTES (AUTO) 0.6 10^3/uL (0.5-4.7); ABSOLUTE MONOCYTES (AUTO) 0.4 10^3/uL (0.1-1.4); BASOPHILS % (AUTO) 0.2 % (0-2); EOSINOPHILS % (AUTO) 1.4 % (0-6); HEMATOCRIT 37.1 % (36.0-47.0); HEMOGLOBIN 12.7 g/dL (12.0-15.5); LYMPHOCYTES % (AUTO) 8.1 % (13-45); MEAN CORPUSCULAR HEMOGLOBIN 30.3 pg (27.0-33.4); MEAN CORPUSCULAR HGB CONC 34.3 g/dL (32.0-36.0); MEAN CORPUSCULAR VOLUME 88 fl (80-97); MONOCYTES % (AUTO) 5.3 % (3-13); RED BLOOD COUNT 4.21 10^6/uL (3.72-5.28); RED CELL DISTRIBUTION WIDTH 12.7 % (11.5-14.0); WHITE BLOOD COUNT 7.1 10^3/uL (4.0-10.5)
[2017-04-04 06:16] LABS: ANION GAP 13 (5-19); BLOOD UREA NITROGEN 19 mg/dL (7-20); CALCIUM 9.3 mg/dL (8.4-10.2); CARBON DIOXIDE 19 mmol/L (22-30); CHLORIDE 108 mmol/L (98-107); CREATININE RESULT 0.98 mg/dL (0.52-1.25); GLUCOSE 107 mg/dL (75-110); POTASSIUM 4.1 mmol/L (3.6-5.0); SODIUM 140.4 mmol/L (137-145)
[2017-04-04] MEDS ORDERED: NORMAL SALINE 1000 ML 1,000 ML IV ONE (08:18)
[2017-04-04] MEDS ORDERED: NORMAL SALINE 1000 ML 1,000 ML IV PRN (08:18)
[2017-04-04] MEDS ORDERED: VANCOMYCIN HCL 0 MG in DEXTROSE 5%-WATER 250 ML IV NR (08:30)
--- NOTE | 2017-04-04 10:19 | RADIOLOGY REPORT (SQ) ---
EXAM DESCRIPTION: CHEST SINGLE VIEW COMPLETED DATE/TIME: 04/04/2017 10:07 am REASON FOR STUDY: fever COMPARISON: 04/01/2017 EXAM PARAMETERS: NUMBER OF VIEWS: One view. TECHNIQUE: Single frontal radiographic view of the chest acquired. RADIATION DOSE: NA LIMITATIONS: None. FINDINGS: LUNGS AND PLEURA: No opacities, masses or pneumothorax. No pleural effusion. MEDIASTINUM AND HILAR STRUCTURES: No masses. Contour normal. HEART AND VASCULAR STRUCTURES: Heart normal in size. Normal vasculature. BONES: No acute findings. HARDWARE: None in the chest. OTHER: No other significant finding. IMPRESSION: NO ACUTE RADIOGRAPHIC FINDING IN THE CHEST. TECHNICAL DOCUMENTATION: JOB ID: [id number]
[2017-04-04] MEDS: DOCUSATE SODIUM 100 MG CAPSULE PO SCH ×2 (10:49→18:01)
[2017-04-04] MEDS: CLOPIDOGREL BISULFATE 75 MG TABLET PO SCH (10:49)
[2017-04-04] MEDS: PREGABALIN 75 MG CAPSULE PO SCH ×3 (10:49→18:01)
[2017-04-04] MEDS: VANCOMYCIN HCL 1,250 MG in DEXTROSE 5%-WATER 250 ML IV SCH (10:50)
[2017-04-04] MEDS: TOPIRAMATE 100 MG TABLET PO SCH ×2 (10:50→21:16)
[2017-04-04] MEDS: ASPIRIN 81 MG TABLET, CHEWABLE PO SCH (10:50)
[2017-04-04] MEDS: RANOLAZINE 500 MG TAB.SR.12H PO SCH ×2 (10:52→21:16)
[2017-04-04] MEDS: ENOXAPARIN SODIUM INJ 40 MG/0.4 ML DISP.SYRIN SUBCUT SCH (10:53)
[2017-04-04] MEDS: LISINOPRIL 10 MG TABLET PO SCH (11:02)
[2017-04-04] MEDS: ISOSORBIDE MONONITRATE 60 MG TAB.ER.24H PO SCH ×2 (11:02→20:51)
[2017-04-04] MEDS: DILTIAZEM HCL 180 MG CAPSULE.CR PO SCH ×2 (11:02→20:51)
--- NOTE | 2017-04-04 12:55 | PDOC PROGRESS REPORT ---
Subjective Progress Note for:: 04/04/17 Subjective:: The patient experienced a seizure last night and this morning had a fever up to 102. Physical Exam Vital Signs: Temp Pulse Resp BP Pulse Ox 98.5 F 91 14 71/49 L 96 04/04/17 08:04 04/04/17 08:04 04/04/17 08:04 04/04/17 08:04 04/04/17 08:04 Intake & Output 04/03/17 04/04/17 04/05/17 06:59 06:59 06:59 Intake Total 2750 Balance 2750 General appearance: PRESENT: no acute distress Eye exam: PRESENT: conjunctiva pink. ABSENT: scleral icterus Mouth exam: PRESENT: moist, tongue midline Neck exam: ABSENT: JVD Respiratory exam: PRESENT: rhonchi - Coarse rhonchi bilaterally.. ABSENT: rales , wheezes Cardiovascular exam: PRESENT: RRR. ABSENT: diastolic murmur, rubs, systolic murmur GI/Abdominal exam: PRESENT: normal bowel sounds, soft. ABSENT: distended, guarding, mass, organolmegaly, rebound, tenderness Extremities exam: ABSENT: calf tenderness, clubbing, pedal edema Neurological exam: PRESENT: alert, awake, oriented to person, oriented to place , oriented to time, oriented to situation, CN II-XII grossly intact. ABSENT: motor sensory deficit Psychiatric exam: PRESENT: appropriate affect Skin exam: PRESENT: dry, intact, warm. ABSENT: cyanosis, rash Results Laboratory Results: 04/04/17 05:35 04/04/17 05:35 04/04/17 04/04/17 05:35 05:35 WBC 7.1 RBC 4.21 Hgb 12.7 Hct 37.1 MCV 88 MCH 30.3 MCHC 34.3 RDW 12.7 Plt Count 163 Seg Neutrophils % 85.0 H Lymphocytes % 8.1 L Monocytes % 5.3 Eosinophils % 1.4 Basophils % 0.2 Absolute Neutrophils 6.0 Absolute Lymphocytes 0.6 Absolute Monocytes 0.4 Absolute Eosinophils 0.1 Absolute Basophils 0.0 Sodium 140.4 Potassium 4.1 Chloride 108 H Carbon Dioxide 19 L Anion Gap 13 BUN 19 Creatinine 0.98 Est GFR ( Amer) > 60 Est GFR (Non-Af Amer) 57 L Glucose 107 Calcium 9.3 Impressions: Chest X-Ray 04/04/17 00:00 IMPRESSION: NO ACUTE RADIOGRAPHIC FINDING IN THE CHEST. Assessment & Plan - Diagnosis (1) Coronary artery disease Qualifiers: Coronary Disease-Associated Artery/Lesion type: [place] artery [place] vs. transplanted heart: [place] heart Associated angina: angina presence unspecified Qualified Code(s): I25.10 - Atherosclerotic heart disease of [place] coronary artery without angina pectoris Is this a current diagnosis for this admission?: YesPlan: Patient was admitted with chest pain and had a stress test that showed some mild reversible ischemia. She was started on Imdur and Ranexa and continues to have dyspnea on exertion along with angina. The patient was going to be transferred for cardiac catheterization however in light of the fever cardiology has declined cardiac catheterization at this time. Once the patient improves medically we will discuss again with cardiology about possible cardiac catheterization (2) Essential hypertension Is this a current diagnosis for this admission?: Yes (3) GERD (gastroesophageal reflux disease) Qualifiers: Esophagitis presence: without esophagitis Qualified Code(s): K21.9 - Gastro-esophageal reflux disease without esophagitis Is this a current diagnosis for this admission?: Yes (4) Hyperlipidemia Qualifiers: Hyperlipidemia type: unspecified Qualified Code(s): E78.5 - Hyperlipidemia, unspecified Is this a current diagnosis for this admission?: Yes (5) Multiple sclerosis Is this a current diagnosis for this admission?: Yes (6) Seizure disorder Is this a current diagnosis for this admission?: Yes (7) Type 2 diabetes mellitus Qualifiers: Diabetes mellitus complication status: with unspecified complications Diabetes mellitus chcf insulin use: without termite technician use Qualified Code(s): E11.8 - Type 2 diabetes mellitus with unspecified complications; Z79.4 - residential (current) use of insulin Is this a current diagnosis for this admission?: YesPlan: Continue with sliding scale insulin. (8) Fever Is this a current diagnosis for this admission?: YesPlan: Patient had a fever up to 102 after having seizures last night. I am concerned about the possibility of aspiration we will check a chest x-ray and check blood cultures. We will start empirically on vancomycin and Zosyn. - Time Time Spent with patient: 25-34 minutes - Inpatient Certification Medical Necessity: Need Close Monitoring Due to Risk of Patient Decompensation, Need for IV Antibiotics
[2017-04-04] MEDS: PIPERACILLIN SODIUM/TAZOBACTAM 3.375 GM in NORMAL SALINE 100 ML IV SCH ×2 (15:00→18:03)
[2017-04-04] MEDS: DIAZEPAM 5 MG TABLET PO PRN (20:51)
[2017-04-04] MEDS ORDERED: DILTIAZEM HCL 180 MG CAPSULE.CR PO ONE (21:00)
[2017-04-04] MEDS ORDERED: ISOSORBIDE MONONITRATE 60 MG TAB.ER.24H PO ONE (21:00)
[2017-04-04 22:10] LABS: CREATINE KINASE MB < 0.22 ng/mL (<4.55); TROPONIN I < 0.012 ng/mL
[2017-04-05] MEDS: PIPERACILLIN SODIUM/TAZOBACTAM 3.375 GM in NORMAL SALINE 100 ML IV SCH ×4 (00:30→17:21)
[2017-04-05 04:54] LABS: ABSOLUTE EOSINOPHILS # (AUTO) 0.1 10^3/uL (0.0-0.6); ABSOLUTE LYMPHOCYTES (AUTO) 0.7 10^3/uL (0.5-4.7); ABSOLUTE MONOCYTES (AUTO) 0.4 10^3/uL (0.1-1.4); ABSOLUTE NEUT (AUTO) 2.8 10^3/uL (1.7-8.2); BASOPHILS % (AUTO) 0.6 % (0-2); EOSINOPHILS % (AUTO) 1.5 % (0-6); HEMATOCRIT 35.4 % (36.0-47.0); HEMOGLOBIN 12.3 g/dL (12.0-15.5); HGB HCT DIFFERENCE 1.5; LYMPHOCYTES % (AUTO) 17.2 % (13-45); MEAN CORPUSCULAR HEMOGLOBIN 30.5 pg (27.0-33.4); MEAN CORPUSCULAR HGB CONC 34.7 g/dL (32.0-36.0); MEAN CORPUSCULAR VOLUME 88 fl (80-97); MONOCYTES % (AUTO) 10.5 % (3-13); RED BLOOD COUNT 4.02 10^6/uL (3.72-5.28); RED CELL DISTRIBUTION WIDTH 12.7 % (11.5-14.0); SEGMENTED NEUTROPHILS % (AUTO) 70.2 % (42-78)
[2017-04-05 05:08] LABS: ANION GAP 14 (5-19); BLOOD UREA NITROGEN 18 mg/dL (7-20); CARBON DIOXIDE 19 mmol/L (22-30); CHLORIDE 110 mmol/L (98-107); CREATINE KINASE 45 U/L (30-135); CREATININE RESULT 1.17 mg/dL (0.52-1.25); GLUCOSE 110 mg/dL (75-110); POTASSIUM 3.9 mmol/L (3.6-5.0); SODIUM 142.6 mmol/L (137-145)
[2017-04-05 05:20] LABS: CREATINE KINASE MB 0.23 ng/mL (<4.55)
[2017-04-05 05:23] LABS: TROPONIN I < 0.012 ng/mL
--- NOTE | 2017-04-05 06:06 | Physician Advisory Note ---
Physician Advisor ProgressNote .: Pursuant to the plan for [facility], I have reviewed the medical record for this patient. Physician Advisor Statement: Please consider documentin. "possible sepsis on 04/04 due to suspected aspiration PNA" vs. "SIRS on 04/04, suspect due to aspiration pneumonitis" - T102.7, HR 100, BP as low as 71/40, bicarb low .... - Initial U/A (+), too 2. "Acute metabolic acidosis, suspect due to ____" Thanks! CK
[2017-04-05] MEDS: LANSOPRAZOLE 30 MG TAB.RAP.DR PO SCH ×2 (06:21→16:59)
--- NOTE | 2017-04-05 07:15 | EKG REPORT ---
SEVERITY:- ABNORMAL ECG - SINUS RHYTHM VENTRICULAR PREMATURE COMPLEX NONSPECIFIC T ABNORMALITIES, LATERAL LEADS : Confirmed by: Maricel Darby MD 05-Apr-2017 07:15:03
[2017-04-05] MEDS: ENOXAPARIN SODIUM INJ 40 MG/0.4 ML DISP.SYRIN SUBCUT SCH (09:32)
[2017-04-05] MEDS: ASPIRIN 81 MG TABLET, CHEWABLE PO SCH (09:32)
[2017-04-05] MEDS: DILTIAZEM HCL 180 MG CAPSULE.CR PO SCH ×2 (09:32→21:44)
[2017-04-05] MEDS: PREGABALIN 75 MG CAPSULE PO SCH ×3 (09:33→17:20)
[2017-04-05] MEDS: TOPIRAMATE 100 MG TABLET PO SCH ×2 (09:33→21:45)
[2017-04-05] MEDS: CLOPIDOGREL BISULFATE 75 MG TABLET PO SCH (09:33)
[2017-04-05] MEDS: DOCUSATE SODIUM 100 MG CAPSULE PO SCH ×2 (09:33→17:20)
[2017-04-05] MEDS: RANOLAZINE 500 MG TAB.SR.12H PO SCH ×2 (09:36→21:45)
[2017-04-05] MEDS: VANCOMYCIN HCL 1,250 MG in DEXTROSE 5%-WATER 250 ML IV SCH (09:36)
[2017-04-05] MEDS: LISINOPRIL 10 MG TABLET PO SCH (09:37)
[2017-04-05] MEDS: ISOSORBIDE MONONITRATE 60 MG TAB.ER.24H PO SCH ×2 (09:37→21:45)
[2017-04-05 11:09] LABS: CREATINE KINASE MB 0.45 ng/mL (<4.55)
[2017-04-05 11:12] LABS: TROPONIN I < 0.012 ng/mL
[2017-04-05] MEDS: HYDROMORPHONE HCL 2 MG TABLET PO PRN (12:05)
--- NOTE | 2017-04-05 12:28 | PDOC PROGRESS REPORT ---
Subjective Progress Note for:: 04/05/17 Subjective:: Denies any chest pain. Physical Exam Vital Signs: Temp Pulse Resp BP Pulse Ox 97.9 F 63 16 101/56 L 96 04/05/17 08:00 04/05/17 08:00 04/05/17 08:00 04/05/17 08:00 04/05/17 08:00 Intake & Output 04/04/17 04/05/17 04/06/17 06:59 06:59 06:59 Intake Total 2750 1380 Output Total 1500 Balance 2750 -120 General appearance: PRESENT: no acute distress Eye exam: PRESENT: conjunctiva pink. ABSENT: scleral icterus Mouth exam: PRESENT: moist, tongue midline Neck exam: ABSENT: JVD Respiratory exam: PRESENT: clear to auscultation otilio. ABSENT: rales, rhonchi, wheezes Cardiovascular exam: PRESENT: RRR. ABSENT: diastolic murmur, rubs, systolic murmur GI/Abdominal exam: PRESENT: normal bowel sounds, soft. ABSENT: distended, guarding, mass, organolmegaly, rebound, tenderness Extremities exam: ABSENT: calf tenderness, clubbing, pedal edema Neurological exam: PRESENT: alert, awake, oriented to person, oriented to place , oriented to time, oriented to situation, CN II-XII grossly intact. ABSENT: motor sensory deficit Psychiatric exam: PRESENT: appropriate affect Skin exam: PRESENT: dry, intact, warm. ABSENT: cyanosis, rash Results Laboratory Results: 04/05/17 04:39 04/05/17 04:39 04/05/17 04/05/17 04/05/17 03:42 03:42 04:39 WBC Cancelled RBC Cancelled Hgb Cancelled Hct Cancelled MCV Cancelled MCH Cancelled MCHC Cancelled RDW Cancelled Plt Count Cancelled Seg Neutrophils % Cancelled Lymphocytes % Cancelled Monocytes % Cancelled Eosinophils % Cancelled Basophils % Cancelled Absolute Neutrophils Cancelled Absolute Lymphocytes Cancelled Absolute Monocytes Cancelled Absolute Eosinophils Cancelled Absolute Basophils Cancelled Sodium Cancelled 142.6 Potassium Cancelled 3.9 Chloride Cancelled 110 H Carbon Dioxide Cancelled 19 L Anion Gap Cancelled 14 BUN Cancelled 18 Creatinine Cancelled 1.17 Est GFR ( Amer) Cancelled 57 L Est GFR (Non-Af Amer) Cancelled 47 L Glucose Cancelled 110 Calcium Cancelled 9.0 04/05/17 04:39 WBC 4.0 RBC 4.02 Hgb 12.3 Hct 35.4 L MCV 88 MCH 30.5 MCHC 34.7 RDW 12.7 Plt Count 136 L Seg Neutrophils % 70.2 Lymphocytes % 17.2 Monocytes % 10.5 Eosinophils % 1.5 Basophils % 0.6 Absolute Neutrophils 2.8 Absolute Lymphocytes 0.7 Absolute Monocytes 0.4 Absolute Eosinophils 0.1 Absolute Basophils 0.0 Sodium Potassium Chloride Carbon Dioxide Anion Gap BUN Creatinine Est GFR ( Amer) Est GFR (Non-Af Amer) Glucose Calcium 04/04/17 04/04/17 04/05/17 21:15 21:15 03:42 Creatine Kinase 54 Cancelled CK-MB (CK-2) < 0.22 Troponin I < 0.012 04/05/17 04/05/17 04/05/17 03:42 04:39 04:39 Creatine Kinase 45 CK-MB (CK-2) Cancelled 0.23 Troponin I Cancelled < 0.012 04/05/17 04/05/17 10:19 10:19 Creatine Kinase 50 CK-MB (CK-2) 0.45 Troponin I < 0.012 Impressions: Chest X-Ray 04/04/17 00:00 IMPRESSION: NO ACUTE RADIOGRAPHIC FINDING IN THE CHEST. Assessment & Plan - Diagnosis (1) SIRS (systemic inflammatory response syndrome) Is this a current diagnosis for this admission?: YesPlan: Patient has SIRS secondary to aspiration and pneumonitis. (2) Coronary artery disease Qualifiers: Coronary Disease-Associated Artery/Lesion type: [place] artery [place] vs. transplanted heart: [place] heart Associated angina: angina presence unspecified Qualified Code(s): I25.10 - Atherosclerotic heart disease of [place] coronary artery without angina pectoris Is this a current diagnosis for this admission?: YesPlan: Patient was admitted with chest pain and had a stress test that showed some mild reversible ischemia. She was started on Imdur and Ranexa. The patient was going to be transferred for cardiac catheterization however in light of the fever cardiology has declined cardiac catheterization at this time. Once the patient improves medically we will discuss again with cardiology about possible cardiac catheterization (3) Essential hypertension Is this a current diagnosis for this admission?: Yes (4) GERD (gastroesophageal reflux disease) Qualifiers: Esophagitis presence: without esophagitis Qualified Code(s): K21.9 - Gastro-esophageal reflux disease without esophagitis Is this a current diagnosis for this admission?: Yes (5) Hyperlipidemia Qualifiers: Hyperlipidemia type: unspecified Qualified Code(s): E78.5 - Hyperlipidemia, unspecified Is this a current diagnosis for this admission?: Yes (6) Multiple sclerosis Is this a current diagnosis for this admission?: Yes (7) Seizure disorder Is this a current diagnosis for this admission?: Yes (8) Type 2 diabetes mellitus Qualifiers: Diabetes mellitus complication status: with unspecified complications Diabetes mellitus mcfp insulin use: without mcfp use Qualified Code(s): E11.8 - Type 2 diabetes mellitus with unspecified complications; Z79.4 - keno terminal operator (current) use of insulin Is this a current diagnosis for this admission?: YesPlan: Continue with sliding scale insulin. (9) Fever Is this a current diagnosis for this admission?: YesPlan: Patient had a fever up to 102 after having a seizures. I am concerned about the possibility of aspiration. We will continue vancomycin and Zosyn. - Time Time Spent with patient: 25-34 minutes - Inpatient Certification Medical Necessity: Need for IV Antibiotics
[2017-04-05 12:43] LABS: PROTHROMBIN TIME 13.3 SEC (11.4-15.4)
--- NOTE | 2017-04-05 15:48 | RADIOLOGY REPORT (SQ) ---
EXAM DESCRIPTION: PICC INSERTION; FLUORO/CV PLACEMENT; U/S GUIDE FOR VASCULAR ACCESS COMPLETED DATE/TIME: 04/05/2017 3:37 pm REASON FOR STUDY: IV ACCESS D50.9 IRON DEFICIENCY ANEMIA, UNSPECIFIED COMPARISON: None. FLUOROSCOPY TIME: 0.2 minutes 3 images saved to PACS. TECHNIQUE: Fluoroscopic and ultrasound guided PICC placement. LIMITATIONS: None. PROCEDURE: After written consent and assessment were obtained, the patient was brought into the fluo roscopy room and place supine on the table. Ultrasound was used on the patient's left arm for PICC a ccess. The left arm was prepped and draped in a sterile fashion along with the ultrasound probe. The entry site was anesthetized with 1% lidocaine. A 21 gauge 7 cm needle was advanced through the skin a nd into the basilic vein under live ultrasound guidance. An ultrasound image was saved to PACS confi rming access site. A .018 guide wire was then inserted through the needle and into the venous system . The needle was the removed and an 11 blade scalpel was used to make a 1cm skin incision. A 5 fr pe el-away sheath was advanced over the wire and into the venous system. A measurement was then made usi ng the existing wire and live fluoroscopic guidance. The wire was then removed and the trimmed. The P ICC was advanced through the peel-away sheath and into the venous system. The peel-away sheath was re moved and the catheter was adhered to the patients arm with a stat lock. The catheter was then aspira chance and flushed and a sterile bandage was placed over the access site. A fluoroscopic spot image was saved to PACS confirming the catheter tip within the SVC. IMPRESSION: SUCCESSFUL PLACEMENT OF A 5 FR DUAL LUMEN 41 CM PICC IN THE LEFT BASILIC VEIN. COMMENT: Patient medication list reviewed: Yes- Quality ID# [id number]:Eligible professional attests to doc umenting in the medical record they obtained, updated, or reviewed the patient's current medications. . Quality ID 145: Final reports for procedures using fluoroscopy that document radiation exposure sujey nadeem, or exposure time and number of fluorographic images (if radiation exposure indices are not avail able) Quality ID #76: The patient was prepped and draped using maximum sterile barrier technique including cap, mask, sterile gown, sterile gloves, a large sterile sheet, hand hygiene, and 2% Chlorhexidine fo r cutaneous antisepsis. When ultrasound is used, sterile ultrasound techniques are followed requiring sterile gel and sterile probes. TECHNICAL DOCUMENTATION: JOB ID: [id number] [employer]- All Rights Reserved
[2017-04-05] MEDS ORDERED: NORMAL SALINE 10 ML SDV (AFTER EACH USE) IV PRN (16:02)
[2017-04-05] MEDS ORDERED: VANCOMYCIN HCL 1,250 MG in DEXTROSE 5%-WATER 250 ML IV SCH (18:00)
[2017-04-05] MEDS: PROMETHAZINE HCL 25 MG TABLET PO PRN (21:45)
[2017-04-05] MEDS: NORMAL SALINE 10 ML SDV (SCHEDULED) IV SCH (21:45)
[2017-04-06] MEDS: PIPERACILLIN SODIUM/TAZOBACTAM 3.375 GM in NORMAL SALINE 100 ML IV SCH ×2 (00:53→06:08)
[2017-04-06] MEDS: LANSOPRAZOLE 30 MG TAB.RAP.DR PO SCH ×2 (06:08→17:11)
[2017-04-06 06:43] LABS: ABSOLUTE EOSINOPHILS # (AUTO) 0.1 10^3/uL (0.0-0.6); ABSOLUTE MONOCYTES (AUTO) 0.5 10^3/uL (0.1-1.4); ABSOLUTE NEUT (AUTO) 2.4 10^3/uL (1.7-8.2); EOSINOPHILS % (AUTO) 3.3 % (0-6); HEMATOCRIT 34.7 % (36.0-47.0); HEMOGLOBIN 11.8 g/dL (12.0-15.5); HGB HCT DIFFERENCE 0.7; LYMPHOCYTES % (AUTO) 24.1 % (13-45); MEAN CORPUSCULAR HEMOGLOBIN 30.1 pg (27.0-33.4); MEAN CORPUSCULAR VOLUME 89 fl (80-97); MONOCYTES % (AUTO) 11.6 % (3-13); RED BLOOD COUNT 3.92 10^6/uL (3.72-5.28)
[2017-04-06 06:55] LABS: ANION GAP 11 (5-19); BLOOD UREA NITROGEN 17 mg/dL (7-20); CALCIUM 9.2 mg/dL (8.4-10.2); CARBON DIOXIDE 21 mmol/L (22-30); CHLORIDE 111 mmol/L (98-107); CREATININE RESULT 1.03 mg/dL (0.52-1.25); GLUCOSE 91 mg/dL (75-110); POTASSIUM 3.8 mmol/L (3.6-5.0); SODIUM 142.8 mmol/L (137-145)
[2017-04-06] MEDS: ENOXAPARIN SODIUM INJ 40 MG/0.4 ML DISP.SYRIN SUBCUT SCH (08:10)
[2017-04-06] MEDS: TOPIRAMATE 100 MG TABLET PO SCH ×2 (08:10→21:45)
[2017-04-06] MEDS: LISINOPRIL 10 MG TABLET PO SCH (10:01)
[2017-04-06] MEDS: ISOSORBIDE MONONITRATE 60 MG TAB.ER.24H PO SCH ×2 (10:01→21:45)
[2017-04-06] MEDS: PREGABALIN 75 MG CAPSULE PO SCH ×3 (10:01→17:10)
[2017-04-06] MEDS: DOCUSATE SODIUM 100 MG CAPSULE PO SCH ×2 (10:01→17:11)
[2017-04-06] MEDS: CLOPIDOGREL BISULFATE 75 MG TABLET PO SCH (10:01)
[2017-04-06] MEDS: ASPIRIN 81 MG TABLET, CHEWABLE PO SCH (10:01)
[2017-04-06] MEDS: RANOLAZINE 500 MG TAB.SR.12H PO SCH ×2 (10:03→21:45)
[2017-04-06] MEDS: DILTIAZEM HCL 180 MG CAPSULE.CR PO SCH ×2 (10:03→21:44)
--- NOTE | 2017-04-06 13:14 | PDOC PROGRESS REPORT ---
Subjective Progress Note for:: 04/06/17 Subjective:: Denies any chest pain. Physical Exam Vital Signs: Temp Pulse Resp BP Pulse Ox 97.9 F 61 17 100/69 97 04/06/17 11:36 04/06/17 11:36 04/06/17 11:36 04/06/17 11:36 04/06/17 11:36 Intake & Output 04/05/17 04/06/17 04/07/17 06:59 06:59 06:59 Intake Total 1380 875 Output Total 1500 Balance -120 875 Weight 62.6 kg General appearance: PRESENT: no acute distress Eye exam: PRESENT: conjunctiva pink. ABSENT: scleral icterus Mouth exam: PRESENT: moist, tongue midline Neck exam: ABSENT: JVD Respiratory exam: PRESENT: clear to auscultation otilio. ABSENT: rales, rhonchi, wheezes Cardiovascular exam: PRESENT: RRR. ABSENT: diastolic murmur, rubs, systolic murmur GI/Abdominal exam: PRESENT: normal bowel sounds, soft. ABSENT: distended, guarding, mass, organolmegaly, rebound, tenderness Extremities exam: ABSENT: calf tenderness, clubbing, pedal edema Neurological exam: PRESENT: alert, awake, oriented to person, oriented to place , oriented to time, oriented to situation, CN II-XII grossly intact. ABSENT: motor sensory deficit Psychiatric exam: PRESENT: appropriate affect Skin exam: PRESENT: dry, intact, warm. ABSENT: cyanosis, rash Results Laboratory Results: 04/06/17 06:00 04/06/17 06:00 04/06/17 04/06/17 06:00 06:00 WBC 4.0 RBC 3.92 Hgb 11.8 L Hct 34.7 L MCV 89 MCH 30.1 MCHC 34.0 RDW 13.0 Plt Count 145 L Seg Neutrophils % 60.0 Lymphocytes % 24.1 Monocytes % 11.6 Eosinophils % 3.3 Basophils % 1.0 Absolute Neutrophils 2.4 Absolute Lymphocytes 1.0 Absolute Monocytes 0.5 Absolute Eosinophils 0.1 Absolute Basophils 0.0 Sodium 142.8 Potassium 3.8 Chloride 111 H Carbon Dioxide 21 L Anion Gap 11 BUN 17 Creatinine 1.03 Est GFR ( Amer) > 60 Est GFR (Non-Af Amer) 54 L Glucose 91 Calcium 9.2 04/04/17 04/04/1717 21:15 21:15 03:42 Creatine Kinase 54 Cancelled CK-MB (CK-2) < 0.22 Troponin I < 0.012 04/05/17 04/05/17 04/05/17 03:42 04:39 04:39 Creatine Kinase 45 CK-MB (CK-2) Cancelled 0.23 Troponin I Cancelled < 0.012 04/05/17 04/05/17 10:19 10:19 Creatine Kinase 50 CK-MB (CK-2) 0.45 Troponin I < 0.012 Impressions: Chest X-Ray 04/04/17 00:00 IMPRESSION: NO ACUTE RADIOGRAPHIC FINDING IN THE CHEST. Guidance Fluoroscopy 04/05/17 00:00 IMPRESSION: SUCCESSFUL PLACEMENT OF A 5 FR DUAL LUMEN 41 CM PICC IN THE LEFT BASILIC VEIN. Interventional Vascular Procedure 04/05/17 00:00 IMPRESSION: SUCCESSFUL PLACEMENT OF A 5 FR DUAL LUMEN 41 CM PICC IN THE LEFT BASILIC VEIN. PICC Line Insertion 04/05/17 00:00 IMPRESSION: SUCCESSFUL PLACEMENT OF A 5 FR DUAL LUMEN 41 CM PICC IN THE LEFT BASILIC VEIN. Assessment & Plan - Diagnosis (1) SIRS (systemic inflammatory response syndrome) Is this a current diagnosis for this admission?: YesPlan: Patient has SIRS secondary to aspiration and pneumonitis. (2) Coronary artery disease Qualifiers: Coronary Disease-Associated Artery/Lesion type: [place] artery [place] vs. transplanted heart: [place] heart Associated angina: angina presence unspecified Qualified Code(s): I25.10 - Atherosclerotic heart disease of [place] coronary artery without angina pectoris Is this a current diagnosis for this admission?: YesPlan: Patient was admitted with chest pain and had a stress test that showed some mild reversible ischemia. She was started on Imdur and Ranexa. The patient was going to be transferred for cardiac catheterization however in light of the fever cardiology has declined cardiac catheterization. Has had improvement in her fever and will be switched over to oral antibiotics. we will discuss again with cardiology about possible cardiac catheterization (3) Essential hypertension Is this a current diagnosis for this admission?: Yes (4) GERD (gastroesophageal reflux disease) Qualifiers: Esophagitis presence: without esophagitis Qualified Code(s): K21.9 - Gastro-esophageal reflux disease without esophagitis Is this a current diagnosis for this admission?: Yes (5) Hyperlipidemia Qualifiers: Hyperlipidemia type: unspecified Qualified Code(s): E78.5 - Hyperlipidemia, unspecified Is this a current diagnosis for this admission?: Yes (6) Multiple sclerosis Is this a current diagnosis for this admission?: Yes (7) Seizure disorder Is this a current diagnosis for this admission?: Yes (8) Type 2 diabetes mellitus Qualifiers: Diabetes mellitus complication status: with unspecified complications Diabetes mellitus intermediate insulin use: without terminal gauger supervisor use Qualified Code(s): E11.8 - Type 2 diabetes mellitus with unspecified complications; Z79.4 - shelter (current) use of insulin Is this a current diagnosis for this admission?: YesPlan: Continue with sliding scale insulin. (9) Fever Is this a current diagnosis for this admission?: YesPlan: Patient had a fever up to 102 after having a seizure. Remained afebrile and we will switch her over to oral antibiotics. Patient is being treated for presumed aspiration pneumonitis. - Time Time Spent with patient: 25-34 minutes - Inpatient Certification Medical Necessity: Need Close Monitoring Due to Risk of Patient Decompensation
[2017-04-06] MEDS: AMOXICILLIN TR/POT CLAVULANATE 500-125 MG TAB PO SCH ×2 (14:04→21:43)
[2017-04-06] MEDS: NORMAL SALINE 10 ML SDV (SCHEDULED) IV SCH ×2 (14:05→21:43)
[2017-04-07] MEDS: AMOXICILLIN TR/POT CLAVULANATE 500-125 MG TAB PO SCH ×3 (05:59→21:22)
[2017-04-07] MEDS: LANSOPRAZOLE 30 MG TAB.RAP.DR PO SCH ×2 (06:00→17:41)
[2017-04-07 06:26] LABS: ABSOLUTE EOSINOPHILS # (AUTO) 0.1 10^3/uL (0.0-0.6); ABSOLUTE LYMPHOCYTES (AUTO) 0.9 10^3/uL (0.5-4.7); ABSOLUTE MONOCYTES (AUTO) 0.4 10^3/uL (0.1-1.4); ABSOLUTE NEUT (AUTO) 3.8 10^3/uL (1.7-8.2); BASOPHILS % (AUTO) 0.6 % (0-2); EOSINOPHILS % (AUTO) 2.6 % (0-6); HEMATOCRIT 33.8 % (36.0-47.0); HEMOGLOBIN 11.6 g/dL (12.0-15.5); LYMPHOCYTES % (AUTO) 17.3 % (13-45); MEAN CORPUSCULAR HEMOGLOBIN 30.3 pg (27.0-33.4); MEAN CORPUSCULAR HGB CONC 34.2 g/dL (32.0-36.0); MEAN CORPUSCULAR VOLUME 89 fl (80-97); MONOCYTES % (AUTO) 6.9 % (3-13); RED BLOOD COUNT 3.81 10^6/uL (3.72-5.28); RED CELL DISTRIBUTION WIDTH 12.8 % (11.5-14.0); SEGMENTED NEUTROPHILS % (AUTO) 72.6 % (42-78); WHITE BLOOD COUNT 5.2 10^3/uL (4.0-10.5)
[2017-04-07 06:40] LABS: ANION GAP 11 (5-19); BLOOD UREA NITROGEN 19 mg/dL (7-20); CALCIUM 8.8 mg/dL (8.4-10.2); CARBON DIOXIDE 20 mmol/L (22-30); CHLORIDE 113 mmol/L (98-107); GLUCOSE 103 mg/dL (75-110); POTASSIUM 3.6 mmol/L (3.6-5.0); SODIUM 143.9 mmol/L (137-145)
--- NOTE | 2017-04-07 08:42 | PDOC PROGRESS REPORT ---
Subjective Progress Note for:: 04/07/17 Subjective:: Denies any chest pain. Physical Exam Vital Signs: Temp Pulse Resp BP Pulse Ox 98.1 F 66 16 117/49 L 95 04/07/17 03:57 04/07/17 03:57 04/07/17 03:57 04/07/17 03:57 04/07/17 03:57 Intake & Output 04/06/17 04/07/17 04/08/17 06:59 06:59 06:59 Intake Total 875 1389 Output Total 1305 Balance 875 -886 Weight 62.6 kg 61.4 kg General appearance: PRESENT: no acute distress Eye exam: PRESENT: conjunctiva pink. ABSENT: scleral icterus Mouth exam: PRESENT: moist, tongue midline Neck exam: ABSENT: carotid bruit, JVD, lymphadenopathy, thyromegaly Respiratory exam: PRESENT: clear to auscultation otilio. ABSENT: rales, rhonchi, wheezes Cardiovascular exam: PRESENT: RRR. ABSENT: diastolic murmur, rubs, systolic murmur GI/Abdominal exam: PRESENT: normal bowel sounds, soft. ABSENT: distended, guarding, mass, organolmegaly, rebound, tenderness Extremities exam: ABSENT: calf tenderness, clubbing, pedal edema Neurological exam: PRESENT: alert, awake, oriented to person, oriented to place , oriented to time, oriented to situation, CN II-XII grossly intact. ABSENT: motor sensory deficit Psychiatric exam: PRESENT: appropriate affect Skin exam: PRESENT: dry, intact, warm. ABSENT: cyanosis, rash Results Laboratory Results: 04/07/17 06:00 04/07/17 06:00 04/07/17 04/07/17 06:00 06:00 WBC 5.2 RBC 3.81 Hgb 11.6 L Hct 33.8 L MCV 89 MCH 30.3 MCHC 34.2 RDW 12.8 Plt Count 159 Seg Neutrophils % 72.6 Lymphocytes % 17.3 Monocytes % 6.9 Eosinophils % 2.6 Basophils % 0.6 Absolute Neutrophils 3.8 Absolute Lymphocytes 0.9 Absolute Monocytes 0.4 Absolute Eosinophils 0.1 Absolute Basophils 0.0 Sodium 143.9 Potassium 3.6 Chloride 113 H Carbon Dioxide 20 L Anion Gap 11 BUN 19 Creatinine 1.00 Est GFR ( Amer) > 60 Est GFR (Non-Af Amer) 56 L Glucose 103 Calcium 8.8 04/04/17 04/04/17 04/05/17 21:15 21:15 03:42 Creatine Kinase 54 Cancelled CK-MB (CK-2) < 0.22 Troponin I < 0.012 04/05/17 04/05/17 04/05/17 03:42 04:39 04:39 Creatine Kinase 45 CK-MB (CK-2) Cancelled 0.23 Troponin I Cancelled < 0.012 04/05/17 04/05/17 10:19 10:19 Creatine Kinase 50 CK-MB (CK-2) 0.45 Troponin I < 0.012 Impressions: Chest X-Ray 04/04/17 00:00 IMPRESSION: NO ACUTE RADIOGRAPHIC FINDING IN THE CHEST. Guidance Fluoroscopy 04/05/17 00:00 IMPRESSION: SUCCESSFUL PLACEMENT OF A 5 FR DUAL LUMEN 41 CM PICC IN THE LEFT BASILIC VEIN. Interventional Vascular Procedure 04/05/17 00:00 IMPRESSION: SUCCESSFUL PLACEMENT OF A 5 FR DUAL LUMEN 41 CM PICC IN THE LEFT BASILIC VEIN. PICC Line Insertion 04/05/17 00:00 IMPRESSION: SUCCESSFUL PLACEMENT OF A 5 FR DUAL LUMEN 41 CM PICC IN THE LEFT BASILIC VEIN. Assessment & Plan - Diagnosis (1) SIRS (systemic inflammatory response syndrome) Is this a current diagnosis for this admission?: YesPlan: Patient has SIRS secondary to aspiration and pneumonitis. (2) Coronary artery disease Qualifiers: Coronary Disease-Associated Artery/Lesion type: [place] artery [place] vs. transplanted heart: [place] heart Associated angina: angina presence unspecified Qualified Code(s): I25.10 - Atherosclerotic heart disease of [place] coronary artery without angina pectoris Is this a current diagnosis for this admission?: YesPlan: Patient was admitted with chest pain and had a stress test that showed some mild reversible ischemia. She was started on Imdur and Ranexa. will be transferred on Sunday morning to [facility] for cardiac catheterization. (3) Essential hypertension Is this a current diagnosis for this admission?: Yes (4) GERD (gastroesophageal reflux disease) Qualifiers: Esophagitis presence: without esophagitis Qualified Code(s): K21.9 - Gastro-esophageal reflux disease without esophagitis Is this a current diagnosis for this admission?: Yes (5) Hyperlipidemia Qualifiers: Hyperlipidemia type: unspecified Qualified Code(s): E78.5 - Hyperlipidemia, unspecified Is this a current diagnosis for this admission?: Yes (6) Multiple sclerosis Is this a current diagnosis for this admission?: Yes (7) Seizure disorder Is this a current diagnosis for this admission?: Yes (8) Type 2 diabetes mellitus Qualifiers: Diabetes mellitus complication status: with unspecified complications Diabetes mellitus laborer marine terminal insulin use: without intermediate use Qualified Code(s): E11.8 - Type 2 diabetes mellitus with unspecified complications; Z79.4 - alf (current) use of insulin Is this a current diagnosis for this admission?: YesPlan: Continue with sliding scale insulin. (9) Fever Is this a current diagnosis for this admission?: YesPlan: Resolved - Time Time Spent with patient: 25-34 minutes - Inpatient Certification Medical Necessity: Need Close Monitoring Due to Risk of Patient Decompensation
[2017-04-07] MEDS: ENOXAPARIN SODIUM INJ 40 MG/0.4 ML DISP.SYRIN SUBCUT SCH (08:45)
[2017-04-07] MEDS: TOPIRAMATE 100 MG TABLET PO SCH ×2 (08:45→21:22)
[2017-04-07] MEDS: HYDROMORPHONE HCL 2 MG TABLET PO PRN (11:24)
[2017-04-07] MEDS: CLOPIDOGREL BISULFATE 75 MG TABLET PO SCH (11:25)
[2017-04-07] MEDS: DOCUSATE SODIUM 100 MG CAPSULE PO SCH ×2 (11:27→17:41)
[2017-04-07] MEDS: ASPIRIN 81 MG TABLET, CHEWABLE PO SCH (11:27)
[2017-04-07] MEDS: PREGABALIN 75 MG CAPSULE PO SCH ×3 (11:27→17:41)
[2017-04-07] MEDS: ISOSORBIDE MONONITRATE 60 MG TAB.ER.24H PO SCH ×2 (11:29→21:22)
[2017-04-07] MEDS: NORMAL SALINE 10 ML SDV (SCHEDULED) IV SCH ×2 (11:29→21:22)
[2017-04-07] MEDS: LISINOPRIL 10 MG TABLET PO SCH (11:29)
[2017-04-07] MEDS: RANOLAZINE 500 MG TAB.SR.12H PO SCH ×2 (11:31→21:22)
[2017-04-07] MEDS: DILTIAZEM HCL 180 MG CAPSULE.CR PO SCH ×2 (11:31→21:22)
[2017-04-07] MEDS: BUTALB/ACETAMINOPHEN/CAFFEINE 1 TAB EACH PO PRN (19:19)
[2017-04-08] MEDS: LANSOPRAZOLE 30 MG TAB.RAP.DR PO SCH ×2 (06:21→17:21)
[2017-04-08] MEDS: AMOXICILLIN TR/POT CLAVULANATE 500-125 MG TAB PO SCH ×3 (06:21→22:01)
[2017-04-08 06:36] LABS: ABSOLUTE EOSINOPHILS # (AUTO) 0.1 10^3/uL (0.0-0.6); ABSOLUTE LYMPHOCYTES (AUTO) 1.1 10^3/uL (0.5-4.7); ABSOLUTE MONOCYTES (AUTO) 0.3 10^3/uL (0.1-1.4); ABSOLUTE NEUT (AUTO) 3.5 10^3/uL (1.7-8.2); BASOPHILS % (AUTO) 0.8 % (0-2); EOSINOPHILS % (AUTO) 2.7 % (0-6); HEMOGLOBIN 12.1 g/dL (12.0-15.5); HGB HCT DIFFERENCE 1.3; LYMPHOCYTES % (AUTO) 21.6 % (13-45); MEAN CORPUSCULAR HEMOGLOBIN 30.5 pg (27.0-33.4); MEAN CORPUSCULAR HGB CONC 34.5 g/dL (32.0-36.0); MEAN CORPUSCULAR VOLUME 88 fl (80-97); MONOCYTES % (AUTO) 6.5 % (3-13); RED BLOOD COUNT 3.96 10^6/uL (3.72-5.28); SEGMENTED NEUTROPHILS % (AUTO) 68.4 % (42-78); WHITE BLOOD COUNT 5.1 10^3/uL (4.0-10.5)
[2017-04-08 06:53] LABS: ANION GAP 9 (5-19); BLOOD UREA NITROGEN 21 mg/dL (7-20); CALCIUM 8.9 mg/dL (8.4-10.2); CARBON DIOXIDE 20 mmol/L (22-30); CHLORIDE 113 mmol/L (98-107); GLUCOSE 95 mg/dL (75-110); POTASSIUM 3.8 mmol/L (3.6-5.0); SODIUM 142.4 mmol/L (137-145)
[2017-04-08] MEDS: PROMETHAZINE HCL 25 MG TABLET PO PRN (07:25)
[2017-04-08] MEDS: BUTALB/ACETAMINOPHEN/CAFFEINE 1 TAB EACH PO PRN (07:25)
[2017-04-08] MEDS: TOPIRAMATE 100 MG TABLET PO SCH ×2 (07:25→22:01)
[2017-04-08] MEDS: ENOXAPARIN SODIUM INJ 40 MG/0.4 ML DISP.SYRIN SUBCUT SCH (07:25)
--- NOTE | 2017-04-08 08:58 | PDOC PROGRESS REPORT ---
Subjective Progress Note for:: 04/08/17 Subjective:: Reports having angina last night. Currently chest pain-free. Physical Exam Vital Signs: Temp Pulse Resp BP Pulse Ox 98.1 F 70 18 132/83 H 99 04/08/17 08:02 04/08/17 08:02 04/08/17 08:02 04/08/17 08:02 04/08/17 08:02 Intake & Output 04/07/17 04/08/17 04/09/17 06:59 06:59 06:59 Intake Total 1389 2170 Output Total 2275 3500 450 Balance -886 -1330 -450 Weight 61.4 kg 60.3 kg General appearance: PRESENT: no acute distress Eye exam: PRESENT: conjunctiva pink. ABSENT: scleral icterus Mouth exam: PRESENT: moist, tongue midline Neck exam: ABSENT: JVD Respiratory exam: PRESENT: clear to auscultation otilio. ABSENT: rales, rhonchi, wheezes Cardiovascular exam: PRESENT: RRR. ABSENT: diastolic murmur, rubs, systolic murmur GI/Abdominal exam: PRESENT: normal bowel sounds, soft. ABSENT: distended, guarding, mass, organolmegaly, rebound, tenderness Extremities exam: ABSENT: calf tenderness, clubbing, pedal edema Neurological exam: PRESENT: alert, awake, oriented to person, oriented to place , oriented to time, oriented to situation, CN II-XII grossly intact. ABSENT: motor sensory deficit Psychiatric exam: PRESENT: appropriate affect Skin exam: PRESENT: dry, intact, warm. ABSENT: cyanosis, rash Results Laboratory Results: 04/08/17 06:15 04/08/17 06:15 04/08/17 04/08/17 06:15 06:15 WBC 5.1 RBC 3.96 Hgb 12.1 Hct 35.0 L MCV 88 MCH 30.5 MCHC 34.5 RDW 13.0 Plt Count 174 Seg Neutrophils % 68.4 Lymphocytes % 21.6 Monocytes % 6.5 Eosinophils % 2.7 Basophils % 0.8 Absolute Neutrophils 3.5 Absolute Lymphocytes 1.1 Absolute Monocytes 0.3 Absolute Eosinophils 0.1 Absolute Basophils 0.0 Sodium 142.4 Potassium 3.8 Chloride 113 H Carbon Dioxide 20 L Anion Gap 9 BUN 21 H Creatinine 1.00 Est GFR ( Amer) > 60 Est GFR (Non-Af Amer) 56 L Glucose 95 Calcium 8.9 04/04/17 04/04/17 04/05/17 21:15 21:15 03:42 Creatine Kinase 54 Cancelled CK-MB (CK-2) < 0.22 Troponin I < 0.012 04/05/17 04/05/17 04/05/17 03:42 04:39 04:39 Creatine Kinase 45 CK-MB (CK-2) Cancelled 0.23 Troponin I Cancelled < 0.012 04/05/17 04/05/17 10:19 10:19 Creatine Kinase 50 CK-MB (CK-2) 0.45 Troponin I < 0.012 Impressions: Chest X-Ray 04/04/17 00:00 IMPRESSION: NO ACUTE RADIOGRAPHIC FINDING IN THE CHEST. Guidance Fluoroscopy 04/05/17 00:00 IMPRESSION: SUCCESSFUL PLACEMENT OF A 5 FR DUAL LUMEN 41 CM PICC IN THE LEFT BASILIC VEIN. Interventional Vascular Procedure 04/05/17 00:00 IMPRESSION: SUCCESSFUL PLACEMENT OF A 5 FR DUAL LUMEN 41 CM PICC IN THE LEFT BASILIC VEIN. PICC Line Insertion 04/05/17 00:00 IMPRESSION: SUCCESSFUL PLACEMENT OF A 5 FR DUAL LUMEN 41 CM PICC IN THE LEFT BASILIC VEIN. Assessment & Plan - Diagnosis (1) SIRS (systemic inflammatory response syndrome) Is this a current diagnosis for this admission?: YesPlan: Patient has SIRS secondary to aspiration and pneumonitis. (2) Coronary artery disease Qualifiers: Coronary Disease-Associated Artery/Lesion type: [place] artery [place] vs. transplanted heart: [place] heart Associated angina: angina presence unspecified Qualified Code(s): I25.10 - Atherosclerotic heart disease of [place] coronary artery without angina pectoris Is this a current diagnosis for this admission?: YesPlan: Patient was admitted with chest pain and had a stress test that showed some mild reversible ischemia. She was started on Imdur and Ranexa. will be transferred on Sunday morning to [facility] for cardiac catheterization. She did have some angina last night by her report. (3) Essential hypertension Is this a current diagnosis for this admission?: Yes (4) GERD (gastroesophageal reflux disease) Qualifiers: Esophagitis presence: without esophagitis Qualified Code(s): K21.9 - Gastro-esophageal reflux disease without esophagitis Is this a current diagnosis for this admission?: Yes (5) Hyperlipidemia Qualifiers: Hyperlipidemia type: unspecified Qualified Code(s): E78.5 - Hyperlipidemia, unspecified Is this a current diagnosis for this admission?: Yes (6) Multiple sclerosis Is this a current diagnosis for this admission?: Yes (7) Seizure disorder Is this a current diagnosis for this admission?: Yes (8) Type 2 diabetes mellitus Qualifiers: Diabetes mellitus complication status: with unspecified complications Diabetes mellitus long term care phlebotomist insulin use: without long term care phlebotomist use Qualified Code(s): E11.8 - Type 2 diabetes mellitus with unspecified complications; Z79.4 - termite helper (current) use of insulin Is this a current diagnosis for this admission?: YesPlan: Continue with sliding scale insulin. (9) Fever Is this a current diagnosis for this admission?: YesPlan: Resolved - Time Time Spent with patient: 15-24 minutes - Inpatient Certification Medical Necessity: Need Close Monitoring Due to Risk of Patient Decompensation - Plan Summary Plan Summary: Plan on transfer to [facility] for cardiac catheterization tomorrow.
[2017-04-08] MEDS: RANOLAZINE 500 MG TAB.SR.12H PO SCH ×2 (09:15→22:01)
[2017-04-08] MEDS: DILTIAZEM HCL 180 MG CAPSULE.CR PO SCH ×2 (09:15→22:02)
[2017-04-08] MEDS: DOCUSATE SODIUM 100 MG CAPSULE PO SCH ×2 (09:16→17:21)
[2017-04-08] MEDS: ISOSORBIDE MONONITRATE 60 MG TAB.ER.24H PO SCH ×2 (09:16→22:01)
[2017-04-08] MEDS: CLOPIDOGREL BISULFATE 75 MG TABLET PO SCH (09:16)
[2017-04-08] MEDS: PREGABALIN 75 MG CAPSULE PO SCH ×3 (09:16→17:20)
[2017-04-08] MEDS: ASPIRIN 81 MG TABLET, CHEWABLE PO SCH (09:16)
[2017-04-08] MEDS: LISINOPRIL 10 MG TABLET PO SCH (09:16)
[2017-04-08] MEDS: NORMAL SALINE 10 ML SDV (SCHEDULED) IV SCH ×2 (09:17→22:01)
[2017-04-09] MEDS: BUTALB/ACETAMINOPHEN/CAFFEINE 1 TAB EACH PO PRN (03:58)
[2017-04-09] MEDS: LANSOPRAZOLE 30 MG TAB.RAP.DR PO SCH (05:56)
[2017-04-09] MEDS: AMOXICILLIN TR/POT CLAVULANATE 500-125 MG TAB PO SCH (05:57)
--- NOTE | 2017-04-09 07:31 | PDOC TRANSFER SUMMARY ---
General Admission Date/PCP: 04/03/17 13:13 KAPIL HIDALGO MD Transfer Date: 04/04/17 Accepting Facility: [facility] Accepting Physician: Dr. Tapia Resuscitation Status: Full Code - Transfer Diagnosis (1) SIRS (systemic inflammatory response syndrome) Is this a current diagnosis for this admission?: YesDiagnosis Summary: Secondary to aspiration pneumonitis. Treated with vancomycin and Zosyn initially and switched over to Augmentin. (2) Coronary artery disease Is this a current diagnosis for this admission?: YesDiagnosis Summary: Stress test with a small area of apical reversible ischemia (3) Essential hypertension Is this a current diagnosis for this admission?: Yes (4) GERD (gastroesophageal reflux disease) Is this a current diagnosis for this admission?: Yes (5) Hyperlipidemia Is this a current diagnosis for this admission?: Yes (6) Multiple sclerosis Is this a current diagnosis for this admission?: Yes (7) Seizure disorder Is this a current diagnosis for this admission?: Yes (8) Type 2 diabetes mellitus Is this a current diagnosis for this admission?: Yes (9) Fever Is this a current diagnosis for this admission?: Yes - Transfer Medications Home Medications: Aspirin [Adult Low Dose Aspirin EC] 81 mg PO DAILY 04/02/17 Butalbit/Acetamin/Caff/Codeine [Fioricet-Cod 20-249-43-30 Cap] 1 cap PO Q8HP PRN 04/02/17 Clopidogrel Bisulfate [Plavix 75 mg Tablet] 75 mg PO DAILY 04/02/17 Dexlansoprazole [Dexilant 60 mg Capsule] 60 mg PO DAILY 04/02/17 Diazepam [Valium 5 mg Tablet] 5 mg PO DAILYP PRN 04/02/17 Diltiazem HCl [Cardizem Cd] 300 mg PO Q12 04/02/17 Esomeprazole Mag Trihydrate [Nexium] 40 mg PO QAM 04/02/17 Hydromorphone HCl [Dilaudid] 4 mg PO Q8HP PRN 04/02/17 Lisinopril [Zestril] 40 mg PO DAILY 04/02/17 Multivitamin [Daily Multiple Vitamin] 1 tab PO DAILY 04/02/17 Nitroglycerin [Nitroglycerin Patch] 0.8 mg TOP QHS 04/02/17 Nitroglycerin [Nitrolingual] 0.4 mg SL Q5MP PRN 04/02/17 Pregabalin [Lyrica] 150 mg PO Q8 04/02/17 Promethazine HCl [Phenergan 25 mg Tablet] 25 mg PO Q4HP PRN 04/02/17 Spironolactone [Aldactone 25 mg Tablet] 25 mg PO DAILY 04/02/17 Topiramate [Topamax 100 mg Tablet] 100 mg PO QAM 04/02/17 Topiramate [Topamax 100 mg Tablet] 200 mg PO QPM 04/02/17 Transfer Medications: Current Medications Acetaminophen (Tylenol 325 Mg Tablet) 650 mg PO Q4HP PRN PRN Reason: fever Stop: 05/01/17 18:13 Last Admin: 04/04/17 19:51 Dose: 650 mg Acetaminophen/Butalbital/Caffeine (Fioricet (50-325-40 Mg) Tablet) 1 tab PO Q4HP PRN PRN Reason: FOR HEADACHE Stop: 05/07/17 11:49 Last Admin: 04/09/17 03:58 Dose: 1 tab Amoxicillin/Clavulanate Potassium (Augmentin 500-125 Tablet) 1 tab PO Q8 [facility] Stop: 04/13/17 13:59 Last Admin: 04/09/17 05:57 Dose: 1 tab Aspirin (Aspirin 81 Mg Chewable Tablet) 81 mg PO DAILY [facility] Stop: 05/02/17 09:59 Last Admin: 04/08/17 09:16 Dose: 81 mg Clopidogrel Bisulfate (Plavix 75 Mg Tablet) 75 mg PO DAILY [facility] Stop: 05/02/17 09:59 Last Admin: 04/08/17 09:16 Dose: 75 mg Diltiazem HCl (Cardizem Cd 180 Mg Capsule) 180 mg PO Q12 [facility] Stop: 05/02/17 09:59 Last Admin: 04/08/17 22:02 Dose: 180 mg Docusate Sodium (Colace 100 Mg Capsule) 100 mg PO BID [facility] Stop: 05/02/17 09:59 Last Admin: 04/08/17 17:21 Dose: 100 mg Enoxaparin Sodium (Lovenox Inj 40 Mg/0.4 Ml Disp.Syrin) 40 mg SUBCUT QAM [facility] Stop: 05/02/17 07:59 Last Admin: 04/08/17 07:25 Dose: 40 mg Heparin Sodium (Porcine) (Heparin Flush 10 Unit/Ml 5 Ml Disp.Syrg) 30 unit IV Q12 [facility] Stop: 05/05/17 21:59 Last Admin: 04/08/17 22:01 Dose: 30 unit Heparin Sodium (Porcine) (Heparin Flush 10 Unit/Ml 5 Ml Disp.Syrg) 30 unit IV .AFTER EACH USE PRN Stop: 05/05/17 16:01 Last Admin: 04/07/17 06:00 Dose: 30 unit Hydromorphone HCl (Dilaudid Inj/Pf 2 Mg/Ml Ampule) 1 mg IV Q8HP PRN Stop: 04/09/17 16:03 Last Admin: 04/03/17 21:07 Dose: 1 mg Sodium Chloride (Nacl 0.9% 1000 Ml Iv Soln) 1,000 mls @ 150 mls/hr IV CONTINUOUS PRN PRN Reason: THIS MED IS NOT "PRN" Stop: 05/04/17 08:17 Isosorbide Mononitrate (Imdur 60 Mg Tablet.Er) 60 mg PO Q12 [facility] Stop: 05/03/17 09:59 Last Admin: 04/08/17 22:01 Dose: 60 mg Lansoprazole (Prevacid 30 Mg Odt Tablet) 30 mg PO BID@0600,1700 [facility] Stop: 05/02/17 05:59 Last Admin: 04/09/17 05:56 Dose: 30 mg Lisinopril (Prinivil 10 Mg Tablet) 40 mg PO DAILY [facility] Stop: 05/02/17 09:59 Last Admin: 04/08/17 09:16 Dose: 40 mg Nitroglycerin (Nitrostat 0.4 Mg (1/150 Gr) Tabs 25/Bottle) 1 tab SL Q5MP PRN PRN Reason: chest pain Stop: 05/01/17 15:47 Pregabalin (Lyrica 75 Mg Capsule) 150 mg PO TID [facility] Stop: 05/02/17 09:59 Last Admin: 04/08/17 17:20 Dose: 150 mg Promethazine HCl (Phenergan 25 Mg Tablet) 25 mg PO Q6HP PRN PRN Reason: FOR NAUSEA/VOMITING Stop: 05/02/17 11:36 Last Admin: 04/08/17 07:25 Dose: 25 mg Ranolazine (Ranexa 500 Mg Tab.Sr) 500 mg PO Q12 [facility] Stop: 05/02/17 21:59 Last Admin: 04/08/17 22:01 Dose: 500 mg Sodium Chloride (Saline Flush 2.5 Ml Monoject Prefil Syrin) 2.5 ml IV Q8 [facility] Stop: 05/01/17 21:59 Last Admin: 04/09/17 05:57 Dose: 2.5 ml Sodium Chloride (Nacl 0.9% Inj/Pf 10 Ml Sdv) 10 ml IV Q12 [facility] Stop: 05/05/17 21:59 Last Admin: 04/08/17 22:01 Dose: 10 ml Sodium Chloride (Nacl 0.9% Inj/Pf 10 Ml Sdv) 10 ml IV .AFTER EACH USE PRN Stop: 05/05/17 16:01 Last Admin: 04/07/17 06:00 Dose: 10 ml Topiramate (Topamax 100 Mg Tablet) 100 mg PO QAM [facility] Stop: 05/02/17 07:59 Last Admin: 04/08/17 07:25 Dose: 100 mg Topiramate (Topamax 100 Mg Tablet) 200 mg PO QHS [facility] Stop: 05/01/17 21:59 Last Admin: 04/08/17 22:01 Dose: 200 mg - Allergies Allergies/Adverse Reactions: Beta-Blockers (Beta-Adrenergic Bloc Allergy (Unknown, Verified 04/05/17 13:28) ondansetron HCl [From Zofran] Allergy (Unknown, Verified 10/20/15 13:38) Sulfa (Sulfonamide Antibiotics) Allergy (Unknown, Verified 10/20/15 13:38) hydrocodone Adverse Reaction (Unknown, Verified 04/05/17 13:26) naproxen [Naproxen] Adverse Reaction (Unknown, Verified 10/20/15 13:38) - Diet/Activity Discharge Diet: Cardiac Hospital Course Hospital Course: 61 year-old female who presented with chest pain. She had a stress test that showed some reversible apical ischemia. The patient was going to be transferred to [facility] however had a seizure and developed a fever to 102. It is felt that she had aspiration pneumonitis. Treated with vancomycin and Zosyn. Cultures were negative. She improved and had no further fever and was switched to Augmentin. Patient continues to have exertional angina he will be transferred to [facility] for cardiac catheterization. Physical Exam Vital Signs: Temp Pulse Resp BP Pulse Ox 98.0 F 66 16 98/59 L 97 04/09/17 03:45 04/09/17 03:45 04/09/17 03:45 04/09/17 03:45 04/09/17 03:45 Intake & Output 04/08/17 04/09/17 04/10/17 06:59 06:59 06:59 Intake Total 2170 1350 Output Total 3500 2400 Balance -1330 -1050 Weight 60.3 kg 60.5 kg General appearance: PRESENT: no acute distress Eye exam: PRESENT: conjunctiva pink. ABSENT: scleral icterus Ear exam: PRESENT: normal external ear exam Mouth exam: PRESENT: moist, tongue midline Neck exam: ABSENT: carotid bruit, JVD, lymphadenopathy, thyromegaly Respiratory exam: PRESENT: clear to auscultation otilio. ABSENT: rales, rhonchi, wheezes Cardiovascular exam: PRESENT: RRR. ABSENT: diastolic murmur, rubs, systolic murmur GI/Abdominal exam: PRESENT: normal bowel sounds, soft. ABSENT: distended, guarding, mass, organolmegaly, rebound, tenderness Extremities exam: ABSENT: calf tenderness, clubbing, pedal edema Neurological exam: PRESENT: alert, awake, oriented to person, oriented to place , oriented to time, oriented to situation, CN II-XII grossly intact. ABSENT: motor sensory deficit Psychiatric exam: PRESENT: appropriate affect Skin exam: PRESENT: dry, intact, warm. ABSENT: cyanosis, rash Results Laboratory Results: 04/08/17 06:15 04/08/17 06:15 04/04/17 04/04/17 04/05/17 21:15 21:15 03:42 Creatine Kinase 54 Cancelled CK-MB (CK-2) < 0.22 Troponin I < 0.012 04/05/17 04/05/17 04/05/17 03:42 04:39 04:39 Creatine Kinase 45 CK-MB (CK-2) Cancelled 0.23 Troponin I Cancelled < 0.012 04/05/17 04/05/17 10:19 10:19 Creatine Kinase 50 CK-MB (CK-2) 0.45 Troponin I < 0.012 Impressions: Chest X-Ray 04/04/17 00:00 IMPRESSION: NO ACUTE RADIOGRAPHIC FINDING IN THE CHEST. Guidance Fluoroscopy 04/05/17 00:00 IMPRESSION: SUCCESSFUL PLACEMENT OF A 5 FR DUAL LUMEN 41 CM PICC IN THE LEFT BASILIC VEIN. Interventional Vascular Procedure 04/05/17 00:00 IMPRESSION: SUCCESSFUL PLACEMENT OF A 5 FR DUAL LUMEN 41 CM PICC IN THE LEFT BASILIC VEIN. PICC Line Insertion 04/05/17 00:00 IMPRESSION: SUCCESSFUL PLACEMENT OF A 5 FR DUAL LUMEN 41 CM PICC IN THE LEFT BASILIC VEIN. Plan Discharge Plan: transfer to [facility]. Dr. Tapia is the accepting physician. Time Spent: Greater than 30 Minutes
[2017-04-09 07:43] VITALS: BP 103/59
== END 2017-04-09 07:50 | disposition short-term general hospital (02) | DRG 302 ==
LOC: ER 14:05 → INTOOBSV 17:15 → UNDOADMOB 17:15 → EH 17:15 → 4S 18:45 → EH 18:45 → 4S 18:45 → OBSVTOIN 04-03 13:13
PROVIDERS: ADMIT Internal Medicine; ATTEND Internal Medicine
PROC: 02HV33Z Insertion of Infusion Device into Superior Vena Cava, Percutaneous Approach (ICD-10-PCS; principal; 2017-04-05)
PROC: B5181ZA Fluoroscopy of Superior Vena Cava using Low Osmolar Contrast, Guidance (ICD-10-PCS; 2017-04-05)
PROC: B548ZZA Ultrasonography of Superior Vena Cava, Guidance (ICD-10-PCS; 2017-04-05)
DX: I25.118 Atherosclerotic heart disease of native coronary artery with other forms of angina pectoris (principal); J69.0 Pneumonitis due to inhalation of food and vomit; I10 Essential (primary) hypertension; K21.9 Gastro-esophageal reflux disease without esophagitis; E78.5 Hyperlipidemia, unspecified; G35 Multiple sclerosis; G40.909 Epilepsy, unspecified, not intractable, without status epilepticus; E11.9 Type 2 diabetes mellitus without complications; Z79.82 Long term (current) use of aspirin; Z79.899 Other long term (current) drug therapy; Z88.8 Allergy status to other drugs, medicaments and biological substances; I25.2 Old myocardial infarction; F32.9 Major depressive disorder, single episode, unspecified; Z90.49 Acquired absence of other specified parts of digestive tract; Z79.4 Long term (current) use of insulin
CPT/HCPCS: 36415; 36569; 71010; 76937; 77001; 78452; 80048; 80053; 80307; 81001; 82550; 82553; 82962; 83690; 83735; 84484; 85025; 85610; 87040; 93005; 93010; 93017; 96374; 99285; A9500; G0378; J1170; J1642; J1650; J1953; J2543; J2765; J2785; J3370; J3490; J7030; J7040; J7060; Q9969

== ENCOUNTER → 2017-09-07 | Outpatient (CLI) | payer MEDICARE, OTHER ==
--- NOTE | 2017-09-07 12:22 | RADIOLOGY REPORT (SQ) ---
EXAM DESCRIPTION: MRI HEAD COMBO COMPLETED DATE/TIME: 09/07/2017 11:21 am REASON FOR STUDY: G35 MULTIPLE SCLEROSIS G35 MULTIPLE SCLEROSIS COMPARISON: MRI brain 03/15/2016, 08/15/2016 CT brain 09/28/2015 TECHNIQUE: Multiplanar imaging includes noncontrasted T1, T2, FLAIR, diffusion with ADC map and post gadolinium contrast T1 sequences. Images stored on PACS. CONTRAST TYPE AND DOSE: 10 mL Multihance. RENAL FUNCTION: GFR > 60. LIMITATIONS: None. FINDINGS: ANATOMY: No anomalies. Normal vascular flow voids. Pituitary fossa normal. CSF SPACES: Normal in size and contour. No hemorrhage. CEREBRUM: Sulci and gyri normal in size and contour. Spotty increased bifrontal and biparietal incre ased white matter signal on FLAIR imaging, from demyelinating disease. This is stable compared to pr ior MRI 08/15/2016 and 03/15/2016. No evidence of hemorrhage, mass, or extraaxial fluid collection. No abnormal enhancement post contrast. POSTERIOR FOSSA: No signal alteration. No hemorrhage. No edema, masses, or mass effect. Internal sg tory canals, cerebellopontine angles, mastoids normal. No enhancing lesions. No abnormal enhancement post contrast. DIFFUSION IMAGING: Negative for acute or subacute infarction. ORBITS: No masses. Globes normal. PARANASAL SINUSES: No fluid levels. Mucosa normal. OTHER: No other significant finding. IMPRESSION: Stable white matter disease. No acute findings. EVIDENCE OF ACUTE STROKE: NO. TECHNICAL DOCUMENTATION: JOB ID: [id number] [employer]- All Rights Reserved
== END ==
LOC: RAD 09-05 18:46
PROVIDERS: ATTEND Specialist
DX: G35 Multiple sclerosis (principal)
CPT/HCPCS: 82565; 70553; A9577

== ENCOUNTER → 2017-11-19 | Outpatient (CLI) | payer MEDICARE, OTHER ==
[2017-11-19 11:02] LABS: HEMATOCRIT 42.4 % (36.0-47.0); HEMOGLOBIN 14.4 g/dL (12.0-15.5); MEAN CORPUSCULAR HEMOGLOBIN 30.3 pg (27.0-33.4); MEAN CORPUSCULAR HGB CONC 34.1 g/dL (32.0-36.0); MEAN CORPUSCULAR VOLUME 89 fl (80-97); PLATELET COUNT 204 10^3/uL (150-450); RED BLOOD COUNT 4.77 10^6/uL (3.72-5.28); RED CELL DISTRIBUTION WIDTH 13.3 % (11.5-14.0); WHITE BLOOD COUNT 7.5 10^3/uL (4.0-10.5)
[2017-11-19 11:31] LABS: ALANINE AMINOTRANSFERASE 17 U/L (9-52); ALBUMIN 4.6 g/dL (3.5-5.0); ALKALINE PHOSPHATASE 49 U/L (38-126); ANION GAP 13 (5-19); ASPARTATE AMINO TRANSFERASE 27 U/L (14-36); BILIRUBIN,DIRECT 0.2 mg/dL (0.0-0.4); BILIRUBIN,TOTAL 0.4 mg/dL (0.2-1.3); BLOOD UREA NITROGEN 16 mg/dL (7-20); CALCIUM 9.9 mg/dL (8.4-10.2); CARBON DIOXIDE 22 mmol/L (22-30); CHLORIDE 110 mmol/L (98-107); GLUCOSE 76 mg/dL (75-110); POTASSIUM 4.2 mmol/L (3.6-5.0); SODIUM 144.9 mmol/L (137-145); TOTAL PROTEIN 7.2 g/dL (6.3-8.2)
== END ==
LOC: OD 09:41
PROVIDERS: ATTEND Specialist
DX: G35 Multiple sclerosis (principal)
CPT/HCPCS: 36415; 80053; 82607; 85027

== ENCOUNTER → 2018-01-19 | Outpatient (CLI) | payer MEDICARE, OTHER ==
--- NOTE | 2018-01-19 14:18 | RADIOLOGY REPORT (SQ) ---
EXAM DESCRIPTION: MRI LUMBAR SPINE WITHOUT COMPLETED DATE/TIME: 01/19/2018 11:57 am REASON FOR STUDY: MULTIPLE SCLEROSIS; RADICULOPATHY, LUMBAR REGION G35 MULTIPLE SCLEROSIS COMPARISON: CT angio chest 11/22/2016 CT abdomen pelvis 05/25/2013 TECHNIQUE: Sagittal and Axial imaging includes T1, T2, STIR and gradient echo sequences. Coronal T2/ HASTE imaging. LIMITATIONS: None. FINDINGS: VISUALIZED UPPER ABDOMEN: Post right nephrectomy. Stable mild prominence of the common bi le duct. Clips post cholecystectomy. These findings are stable compared to CT abdomen pelvis 013 SEGMENTATION: No transitional anatomy. The lowest well-developed disc space is labeled L5-S1. ALIGNMENT: Anatomic. VERTEBRAE: Intact. BONE MARROW: Normal. No marrow replacement or reactive changes. DISC SIGNAL: Normal. No significant abnormal signal or loss of height. POSTERIOR ELEMENTS: Generally intact. No pars defect evident. HARDWARE: None in the spine. CORD AND CONUS: Normal in size and signal intensity. Conus at the T12-L1 level. SOFT TISSUES: No aortic aneurysm seen. No bulky retroperitoneal adenopathy or mass. No paraspinal mas s or fluid. T11-12: At the upper edge of the field of view. No central or foraminal stenosis. Mild bilateral f acet hypertrophy T12-L1: No central or foraminal stenosis. Mild bilateral facet hypertrophy. L1-L2: No central or foraminal stenosis. Mild bilateral facet hypertrophy. L2-L3: No central or foraminal stenosis. Mild bilateral facet hypertrophy L3-L4: No central or foraminal stenosis. Moderate bilateral facet hypertrophy. L4-L5: No central or foraminal stenosis. Mild posterior disc bulging, moderate bilateral facet and l igament hypertrophy, with synovial cyst protruding off the posterior aspect of the right L4-5 facet j oint, best shown on axial images 24 and 25. L5-S1: No central or foraminal stenosis. Mild diffuse posterior disc bulging, mild bilateral facet h ypertrophy. SACRUM: Visualized upper sacrum intact. OTHER: No other significant findings. IMPRESSION: No significant central or foraminal encroachment. Distal thoracic cord/ conus unremarka ble. TECHNICAL DOCUMENTATION: JOB ID: [id number] [employer]- All Rights Reserved Reading location - IP/workstation name: [email or web address]
--- NOTE | 2018-01-19 14:33 | RADIOLOGY REPORT (SQ) ---
EXAM DESCRIPTION: MRI HEAD WITHOUT COMPLETED DATE/TIME: 01/19/2018 11:57 am REASON FOR STUDY: MULTIPLE SCLEROSIS; RADICULOPATHY, LUMBAR REGION G35 MULTIPLE SCLEROSIS COMPARISON: CT brain 05/23/2015, 09/28/2015 MRI brain 03/15/2016, 08/15/2016, 09/07/2017 TECHNIQUE: Multiplanar imaging includes non-contrasted T1, T2, FLAIR, and diffusion with ADC map seq uences. Images stored on PACS. LIMITATIONS: None. FINDINGS: ANATOMY: No developmental anomalies. Normal vascular flow voids. Pituitary fossa normal. CSF SPACES: Normal in size and contour. No hemorrhage. CEREBRUM: There are multiple foci of increased FLAIR/ T2 signal in the deep periventricular white mat ter, which are chronic in appearance, stable compared to 03/15/2016. These lesions are compatible wit h clinical diagnosis of multiple sclerosis, but could also represent small vessel ischemic change. There are no findings worrisome for acute ischemic change, acute demyelinating plaque, acute intracra nial hemorrhage, mass effect, or midline shift. POSTERIOR FOSSA: No signal alteration. No hemorrhage. No edema, masses or mass effect. Internal sg tory canals, cerebello-pontine angles, mastoids normal. DIFFUSION IMAGING: Negative for acute or sub-acute infarction. ORBITS: No masses. Globes normal. PARANASAL SINUSES: No fluid levels. Mucosa normal. OTHER: No other significant finding. IMPRESSION: Multiple stable white matter lesions in the bifrontal and biparietal regions, old demyel inating disease versus small vessel ischemic change. No new lesions. No MR evidence of acute stroke EVIDENCE OF ACUTE STROKE: No TECHNICAL DOCUMENTATION: JOB ID: [id number]- All Rights Reserved Reading location - IP/workstation name: [email or web address]
== END ==
LOC: RAD 10:41
PROVIDERS: ATTEND Specialist
DX: G35 Multiple sclerosis (principal); M54.16 Radiculopathy, lumbar region
CPT/HCPCS: 70551; 72148

== ENCOUNTER → 2018-01-28 | Outpatient (CLI) | payer MEDICARE, OTHER ==
--- NOTE | 2018-01-28 16:24 | WOMENS IMAGING REPORT ---
EXAM DESCRIPTION: 3D SCREENING MAMMO BILAT COMPLETED DATE/TIME: 01/28/2018 11:37 am REASON FOR STUDY: SCREENING MAMMO Z12.31 ENCNTR SCREEN MAMMOGRAM FOR MALIGNANT NEOPLASM OF [place] G35 MULTIPLE SCLEROSIS M54.16 RADICULOPATHY, LUMBAR REGION COMPARISON: 2008 to 2014 TECHNIQUE: Standard craniocaudal and mediolateral oblique views of each breast recorded using digita l acquisition and breast tomosynthesis. LIMITATIONS: None. FINDINGS: No masses, calcifications or architectural distortion. No areas of suspicion. Read with the assistance of CAD. .[facility] - R2 Cenova Version 1.3 .[facility] - R2 Cenova Version 1.3 .[facility] - R2 Cenova Version 2.4 .[facility] - R2 Cenova Version 2.4 .[facility] - R2 [employer] Printer Version 9.2 IMPRESSION: NORMAL MAMMOGRAM. BIRADS 1. BREAST DENSITY: b. There are scattered areas of fibroglandular density. BIRAD: 1 NEGATIVE RECOMMENDATION: ROUTINE SCREENING COMMENT: The patient has been notified of the results by letter per SA requirements. Additional no tification policies are in place for contacting patient with suspicious or incomplete findings. Quality ID #225: The [employer] recommends an annual screening mammogram for women aged 40 years or over. This facility utilizes a reminder system to ensure that all patients receive reminder letters, and/or direct phone calls for appointments. This includes reminders for routine scr eening mammograms, diagnostic mammograms, or other Breast Imaging Interventions when appropriate. Th is patient will be placed in the appropriate reminder system. The [employer] (ACR) has developed recommendations for screening MRI of the breast s in certain patient populations, to be used in conjunction with mammography. Breast MRI surveillanc e may be appropriate for women with more than 20% lifetime risk of developing breast cancer as deter mined by genetic testing, significant family history of the disease, or history of mantle radiation f or Hodgkins Disease. ACR Practice Guidelines 2008. DBT Technology DBT is a type of tomographic mammography. With conventional mammography, overlapping breast tissue ma y make lesions difficult to detect, even with good compression. DBT uses an x-ray tube that rotates a round the breast, taking images at different angles. These images are then combined to create thin sl ices of the breast that the radiologist can view as a 3D reconstruction. The [email or web address] unit can perform full-field digital mammograms (2D imaging); or DBT (3D imaging); or both, in a combination mode that quickly performs both the mammogram and the tomosynthesis scan while the breast is still compressed. PQRS 6045F: Fluoroscopic imaging is not utilized for breast tomosynthesis. TECHNICAL DOCUMENTATION: FINDING NUMBER: (1) ASSESSMENT: (1) JOB ID: [id number] [employer]- All Rights Reserved Reading location - IP/workstation name: [email or web address]
== END ==
LOC: WI 11:09
PROVIDERS: ATTEND Physician Assistant
DX: Z12.31 Encounter for screening mammogram for malignant neoplasm of breast (principal); M54.16 Radiculopathy, lumbar region; G35 Multiple sclerosis
CPT/HCPCS: 77063; 77067

== ENCOUNTER → 2018-01-28 | Outpatient (CLI) | payer MEDICARE, OTHER ==
[2018-01-28 11:12] LABS: ABSOLUTE EOSINOPHILS # (AUTO) 0.1 10^3/uL (0.0-0.6); ABSOLUTE LYMPHOCYTES (AUTO) 1.3 10^3/uL (0.5-4.7); ABSOLUTE MONOCYTES (AUTO) 0.3 10^3/uL (0.1-1.4); ABSOLUTE NEUT (AUTO) 3.1 10^3/uL (1.7-8.2); BASOPHILS % (AUTO) 0.8 % (0-2); EOSINOPHILS % (AUTO) 2.8 % (0-6); HEMATOCRIT 43.2 % (36.0-47.0); HEMOGLOBIN 14.6 g/dL (12.0-15.5); LYMPHOCYTES % (AUTO) 27.2 % (13-45); MEAN CORPUSCULAR HEMOGLOBIN 30.6 pg (27.0-33.4); MEAN CORPUSCULAR HGB CONC 33.9 g/dL (32.0-36.0); MEAN CORPUSCULAR VOLUME 90 fl (80-97); MONOCYTES % (AUTO) 5.9 % (3-13); PLATELET COUNT 195 10^3/uL (150-450); RED BLOOD COUNT 4.78 10^6/uL (3.72-5.28); RED CELL DISTRIBUTION WIDTH 13.6 % (11.5-14.0); SEGMENTED NEUTROPHILS % (AUTO) 63.3 % (42-78); TOTAL CELLS COUNTED % (AUTO) 100 %; WHITE BLOOD COUNT 4.9 10^3/uL (4.0-10.5)
[2018-01-28 11:50] LABS: ALANINE AMINOTRANSFERASE 25 U/L (9-52); ALKALINE PHOSPHATASE 58 U/L (38-126); ANION GAP 16 (5-19); ASPARTATE AMINO TRANSFERASE 23 U/L (14-36); BILIRUBIN,DIRECT 0.2 mg/dL (0.0-0.4); BILIRUBIN,TOTAL 0.3 mg/dL (0.2-1.3); BLOOD UREA NITROGEN 24 mg/dL (7-20); CALCIUM 9.9 mg/dL (8.4-10.2); CARBON DIOXIDE 21 mmol/L (22-30); CHLORIDE 107 mmol/L (98-107); CHOLESTEROL 221.44 mg/dL (0-200); GLUCOSE 88 mg/dL (75-110); POTASSIUM 4.5 mmol/L (3.6-5.0); SODIUM 144.2 mmol/L (137-145); TOTAL PROTEIN 7.7 g/dL (6.3-8.2); TRIGLYCERIDES 120 mg/dL (<150)
[2018-01-28 12:11] LABS: DIRECT LDL 118 mg/dL (<100)
[2018-01-29 11:39] LABS: CREATININE URINE 35.3 mg/dL (Not Estab.); MICROALBUMIN URINE <3.0 ug/mL (Not Estab.)
== END ==
LOC: OD 10:33
PROVIDERS: ATTEND Physician Assistant
DX: E11.9 Type 2 diabetes mellitus without complications (principal); E78.2 Mixed hyperlipidemia; Z79.899 Other long term (current) drug therapy
CPT/HCPCS: 36415; 80053; 80061; 82043; 82570; 84443; 85025

== ENCOUNTER → 2018-07-24 | Outpatient (CLI) | payer MEDICARE, OTHER ==
[2018-07-24 10:20] LABS: ABSOLUTE EOSINOPHILS # (AUTO) 0.1 10^3/uL (0.0-0.6); ABSOLUTE LYMPHOCYTES (AUTO) 1.1 10^3/uL (0.5-4.7); ABSOLUTE MONOCYTES (AUTO) 0.3 10^3/uL (0.1-1.4); ABSOLUTE NEUT (AUTO) 2.7 10^3/uL (1.7-8.2); BASOPHILS % (AUTO) 0.9 % (0-2); EOSINOPHILS % (AUTO) 2.6 % (0-6); HEMATOCRIT 40.9 % (36.0-47.0); HEMOGLOBIN 14.1 g/dL (12.0-15.5); LYMPHOCYTES % (AUTO) 26.2 % (13-45); MEAN CORPUSCULAR HEMOGLOBIN 31.4 pg (27.0-33.4); MEAN CORPUSCULAR HGB CONC 34.5 g/dL (32.0-36.0); MEAN CORPUSCULAR VOLUME 91 fl (80-97); MONOCYTES % (AUTO) 6.1 % (3-13); PLATELET COUNT 216 10^3/uL (150-450); RED BLOOD COUNT 4.49 10^6/uL (3.72-5.28); RED CELL DISTRIBUTION WIDTH 13.1 % (11.5-14.0); SEGMENTED NEUTROPHILS % (AUTO) 64.2 % (42-78); TOTAL CELLS COUNTED % (AUTO) 100 %; WHITE BLOOD COUNT 4.2 10^3/uL (4.0-10.5)
[2018-07-24 10:49] LABS: ALANINE AMINOTRANSFERASE 22 U/L (9-52); ALBUMIN 4.6 g/dL (3.5-5.0); ALKALINE PHOSPHATASE 47 U/L (38-126); ANION GAP 12 (5-19); ASPARTATE AMINO TRANSFERASE 24 U/L (14-36); BILIRUBIN,DIRECT 0.3 mg/dL (0.0-0.4); BILIRUBIN,TOTAL 0.4 mg/dL (0.2-1.3); BLOOD UREA NITROGEN 18 mg/dL (7-20); CALCIUM 9.6 mg/dL (8.4-10.2); CARBON DIOXIDE 21 mmol/L (22-30); CHLORIDE 107 mmol/L (98-107); GLUCOSE 93 mg/dL (75-110); POTASSIUM 4.1 mmol/L (3.6-5.0); SODIUM 140.2 mmol/L (137-145); TOTAL PROTEIN 7.6 g/dL (6.3-8.2); TRIGLYCERIDES 144 mg/dL (<150)
[2018-07-24 11:05] LABS: DIRECT LDL 93 mg/dL (<100)
[2018-07-25 13:38] LABS: CREATININE URINE 36.1 mg/dL (Not Estab.); MICROALBUMIN URINE <3.0 ug/mL (Not Estab.)
== END ==
LOC: OD 09:02
PROVIDERS: ATTEND Physician Assistant
DX: E78.2 Mixed hyperlipidemia (principal); E11.9 Type 2 diabetes mellitus without complications; Z79.899 Other long term (current) drug therapy
CPT/HCPCS: 80053; 80061; 82043; 82570; 84443; 85025

== ENCOUNTER 2018-12-23 13:31 | Emergency (ER) | payer MEDICARE, OTHER ==
[2018-12-23] MEDS ORDERED: ACETAMINOPHEN 325 MG TABLET PO ONE (16:35)
--- NOTE | 2018-12-23 16:53 | ER Document Report ---
ED Medical Screen (RME) - General Chief Complaint: Fall Stated Complaint: FALL/HEAD PAIN Time Seen by Provider: 12/23/18 16:35 Primary Care Provider: HARMAN HAHN PA-C [Primary Care Provider] - Follow up as needed Notes: Patient is a 63-year-old female presents to the emergency department for a syncopal episode that happened 2 days ago. Patient states she felt lightheaded and dizzy and hit her face on a rug near her front door. Patient states she checked her at home blood pressure and it was 59 systolic. Patient states she drank plenty of fluids and elevated her legs and inevitably felt a lot better. Patient states she continues with pain in her nose which is why she presents to the emergency room. Patient states initially she went to an urgent care who states they were uncomfortable seeing her and told her to come to the emergency room. Patient is currently denying any lightheadedness, dizziness, weakness, chest pain, shortness of breath. Patient states she has a generalized headache and pain in her nose. GENERAL: Alert, very aggressive, continues to comment on the fact that she has been in the waiting room for over 3 hours without any evaluation. HEAD: Normocephalic, superficial abrasions noted to the end of the patient's nose and upper lip. No surrounding erythema, ecchymosis, swelling noted NECK: Full range of motion. Supple. Trachea midline. Patient is complaining of generalized cervical spine tenderness on palpation, refuses c-collar. BACK: no thoracic, lumbar midline tenderness. No saddle anesthesia, normal distal neurovascular exam. NEUROLOGICAL: Alert and oriented x3. Normal speech. Initially discussed with patient that I would order a nasal bone x-ray to rule out fracture. Patient is then requesting pain medication. Discussed the use of Tylenol. Patient is outwardly requesting "something stronger." Pt. got very upset with me and told me I was "not compassionate." Then the patient would not speak to me. I have greeted and performed a rapid initial assessment of this patient. A comprehensive ED assessment and evaluation of the patient, analysis of test results and completion of the medical decision making process will be conducted by additional ED providers. TRAVEL OUTSIDE OF THE [place] IN LAST 30 DAYS: No - Related Data Allergies/Adverse Reactions: Beta-Blockers (Beta-Adrenergic Bloc Allergy (Unknown, Verified 12/23/18 16:23) ondansetron HCl [From Zofran] Allergy (Unknown, Verified 12/23/18 16:23) Sulfa (Sulfonamide Antibiotics) Allergy (Unknown, Verified 12/23/18 16:23) hydrocodone Adverse Reaction (Unknown, Verified 12/23/18 16:23) naproxen [Naproxen] Adverse Reaction (Unknown, Verified 12/23/18 16:23) Past Medical History - Social History Frequency of alcohol use: None Drug Abuse: None - Past Medical History Cardiac Medical History: Reports: Hx Atrial Fibrillation, Hx Coronary Artery Disease, Hx Heart Attack - x 4, Hx Hypercholesterolemia, Hx Hypertension Neurological Medical History: Reports: Hx Seizures Endocrine Medical History: Reports: Hx Diabetes Mellitus Type 1, Hx Diabetes Mellitus Type 2 Renal/ Medical History: Denies: Hx Peritoneal Dialysis GI Medical History: Reports: Hx Diverticulitis, Hx Gastroesophageal Reflux Disease Musculoskeltal Medical History: Reports Hx Arthritis, Reports Hx Multiple Sclerosis Psychiatric Medical History: Reports: Hx Depression Past Surgical History: Reports: Hx Abdominal Surgery, Hx Appendectomy, Hx Cardiac Catheterization - 1, Hx Section, Hx Cholecystectomy, Hx Kidney (Renal Surgery) - 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 Denies: Hx Genitourinary Surgery - Immunizations Immunizations up to date: Yes Hx Diphtheria, Pertussis, Tetanus Vaccination: Yes Physical Exam - Vital signs Vitals: Temp Pulse Resp BP Pulse Ox 97.8 F 65 18 172/98 H 100 12/23/18 13:51 12/23/18 13:51 12/23/18 13:51 12/23/18 13:51 12/23/18 13:51 Course - Vital Signs Vital signs: Temp Pulse Resp BP Pulse Ox 97.8 F 65 18 172/98 H 100 12/23/18 13:51 12/23/18 13:51 12/23/18 13:51 12/23/18 13:51 12/23/18 13:51 Doctor's Discharge - Discharge Referrals: HARMAN HAHN PA-C [Primary Care Provider] - Follow up as needed
--- NOTE | 2018-12-23 18:41 | RADIOLOGY REPORT (SQ) ---
EXAM DESCRIPTION: CT HEAD WITHOUT COMPLETED DATE/TIME: 12/23/2018 6:27 pm REASON FOR STUDY: fall COMPARISON: MR 01/19/2018. CT 09/28/2015 TECHNIQUE: Axial images acquired through the brain without intravenous contrast. Images reviewed wi th bone, brain and subdural windows. Additional sagittal and coronal reconstructions were generated. Images stored on PACS. All CT scanners at this facility use dose modulation, iterative reconstruction, and/or weight based d osing when appropriate to reduce radiation dose to as low as reasonably achievable (ALARA). [facility]: Dose Right [facility]: CareDose [facility]: Dose Right [facility]: Teradose 4D [facility]: Smart Moodswing RADIATION DOSE: CT Rad equipment meets quality standard of care and radiation dose reduction techniq ues were employed. CTDIvol: 53.2 mGy. DLP: 991 mGy-cm. mGy. LIMITATIONS: None. FINDINGS: VENTRICLES: Normal size and contour. CEREBRUM: No masses. No hemorrhage. No midline shift. No evidence for acute infarction. Areas of l ow density in the white matter most likely chronic small vessel ischemic changes. CEREBELLUM: No masses. No hemorrhage. No alteration of density. No evidence for acute infarction. EXTRAAXIAL SPACES: No fluid collections. No masses. ORBITS AND GLOBE: No intra- or extraconal masses. Normal contour of globe without masses. CALVARIUM: No fracture. PARANASAL SINUSES: No fluid or mucosal thickening. SOFT TISSUES: No mass or hematoma. OTHER: No other significant finding. IMPRESSION: MILD CHRONIC MICROVASCULAR ISCHEMIA. NO ACUTE IMAGING FINDINGS IN THE BRAIN. EVIDENCE OF ACUTE STROKE: NO. COMMENT: Quality ID # [id number]: Final reports with documentation of one or more dose reduction techniques (e.g., Automated exposure control, adjustment of the mA and/or kV according to patient size, use of iterative reconstruction technique) TECHNICAL DOCUMENTATION: JOB ID: [id number] [employer]- All Rights Reserved Reading location - IP/workstation name: [email or web address]
--- NOTE | 2018-12-23 18:43 | RADIOLOGY REPORT (SQ) ---
EXAM DESCRIPTION: CT CERVICAL SPINE WITHOUT COMPLETED DATE/TIME: 12/23/2018 6:27 pm REASON FOR STUDY: fall COMPARISON: None. TECHNIQUE: Axial images acquired through the cervical spine without intravenous contrast. Images re viewed with lung, soft tissue and bone windows. Reconstructed coronal and sagittal MPR images review ed. Images stored on PACS. All CT scanners at this facility use dose modulation, iterative reconstruction, and/or weight based d osing when appropriate to reduce radiation dose to as low as reasonably achievable (ALARA). [facility]: Dose Right [facility]: CareDose [facility]: Dose Right [facility]: Teradose 4D [facility]: Smart Technologies RADIATION DOSE: CT Rad equipment meets quality standard of care and radiation dose reduction techniq ues were employed. CTDIvol: 16.5 mGy. DLP: 350 mGy-cm. mGy. LIMITATIONS: None. FINDINGS: ALIGNMENT: Anatomic. MINERALIZATION: Normal. VERTEBRAL BODIES: No fractures or dislocation. DISCS: No significant disc disease. FACETS, LATERAL MASSES, POSTERIOR ELEMENTS: Mild hypertrophic facet changes, left more than right. HARDWARE: None in the spine. VISUALIZED RIBS: No fractures. LUNG APICES AND SOFT TISSUES: No significant or acute findings. OTHER: No other significant finding. IMPRESSION: Facet arthropathy. No acute findings. TECHNICAL DOCUMENTATION: JOB ID: [id number] Quality ID # [id number]: Final reports with documentation of one or more dose reduction techniques (e.g., Au tomated exposure control, adjustment of the mA and/or kV according to patient size, use of iterative reconstruction technique) 2010 [employer]- All Rights Reserved Reading location - IP/workstation name: [email or web address]
--- NOTE | 2018-12-23 18:47 | RADIOLOGY REPORT (SQ) ---
EXAM DESCRIPTION: CT FACIAL AREA WITHOUT COMPLETED DATE/TIME: 12/23/2018 6:27 pm REASON FOR STUDY: fall COMPARISON: None. TECHNIQUE: Noncontrasted images through the facial bones and orbits windowed for bone and soft tissu e. Additional coronal and sagittal reconstructed images reviewed. All images stored on PACS. All CT scanners at this facility use dose modulation, iterative reconstruction, and/or weight based d osing when appropriate to reduce radiation dose to as low as reasonably achievable (ALARA). [facility]: Dose Right [facility]: CareDose [facility]: Dose Right [facility]: Teradose 4D [facility]: [employer] RADIATION DOSE: CT Rad equipment meets quality standard of care and radiation dose reduction techniq ues were employed. CTDIvol: 30.4 mGy. DLP: 524 mGy-cm. mGy. LIMITATIONS: None. FINDINGS: FACIAL BONES: No fracture or bone lesion. ORBITS: Intact. No fracture. Symmetric intact globes and retroorbital soft tissues. PARANASAL SINUSES: Clear. No significant mucosal thickening, mass or fluid. No nasal polyps. Maxill tone sinus outlets are patent. SOFT TISSUES: No mass or edema. INFERIOR BRAIN: Limited view. No acute findings. OTHER: No other significant finding. IMPRESSION: NO ACUTE FINDINGS. TECHNICAL DOCUMENTATION: JOB ID: [id number] Quality ID # [id number]: Final reports with documentation of one or more dose reduction techniques (e.g., Au tomated exposure control, adjustment of the mA and/or kV according to patient size, use of iterative reconstruction technique) 2010 [employer]- All Rights Reserved Reading location - IP/workstation name: [email or web address]
--- NOTE | 2018-12-23 19:12 | ER Document Report ---
ED Fall - General Chief Complaint: Fall Stated Complaint: FALL/HEAD PAIN Time Seen by Provider: 12/23/18 19:10 Primary Care Provider: HARMAN HAHN PA-C [NURSE PRACTITIONER] - Follow up as needed Mode of Arrival: Ambulatory Information source: Patient Notes: HISTORY OF PRESENT ILLNESS: Patient is a 63-year-old female with a past medical history of multiple chronic health conditions including multiple sclerosis and seizures who presents with episodes of "almost passing out" that was followed by the patient falling against a wall and hitting her nose and the left side of her head and neck. Location: Nose, left side head/neck Onset: Sudden 2 days ago Provocation: None Quality: Aching, soreness Radiation: None Severity: Mild to moderate Timing: Constant Associated symptoms: Denies passing out, no chest pain or shortness of breath, no fevers or chills, no vision changes, no weakness of the extremities, no ataxia, no syncope REVIEW OF SYSTEMS: CONSTITUTIONAL : Denies fever or chills, no sweats. Denies recent illness. EENT: Positive for nose pain. Denies eye, ear, throat, or mouth pain or symptoms. Denies nasal or sinus congestion. CARDIOVASCULAR: Denies chest pain. RESPIRATORY: Denies cough, cold, or chest congestion. Denies shortness of breath, difficulty breathing, or wheezing. GASTROINTESTINAL: Denies abdominal pain. Denies nausea, vomiting, or diarrhea. Denies constipation. GENITOURINARY: Denies difficulty urinating, painful urination, burning, frequency, or blood in urine. Denies vaginal bleeding, abnormal or irregular periods. MUSCULOSKELETAL: Positive for neck pain. SKIN: Denies rash or skin lesions. HEMATOLOGIC : Denies easy bruising or bleeding. LYMPHATIC: Denies swollen, enlarged glands. NEUROLOGICAL: Denies altered mental status or loss of consciousness. Denies headache. Denies weakness or paralysis or loss of use of either side. Denies problems with gait or speech. Denies sensory or motor loss. PSYCHIATRIC: Denies anxiety or stress or depression. All other systems reviewed and negative. PHYSICAL EXAMINATION: GENERAL: Well-appearing, well-nourished and in no acute distress. HEAD: Atraumatic, normocephalic. No scalp deformity, depression, or crepitance. EYES: Pupils are 3 mm and equal/round/reactive to light, extraocular movements intact, sclera anicteric, conjunctiva are normal. ENT: Mild swelling to the bridge of the nose without deformity or septal hematoma. Nares patent bilaterally, oropharynx clear without exudates or palatal petechia. Moist mucous membranes. No tonsil hypertrophy. NECK: Normal range of motion, supple without lymphadenopathy. LUNGS: Breath sounds present, equal, and clear to auscultation bilaterally. No wheezes, rales, or rhonchi. HEART: Regular rate and rhythm without murmurs, rubs, or gallops. 2+ peripheral pulses. Normal capillary refill. ABDOMEN: Soft, nontender, nondistended. Normoactive bowel sounds. No guarding, no rebound. No masses appreciated. BACK: Normal contour, no midline tenderness. Rectal exam deferred. PELVC: Deferred. EXTREMITIES: Normal range of motion, no pitting or edema. No cyanosis. NEUROLOGICAL: No focal neurological deficits. Moves all extremities spontaneously and on command. PSYCH: Normal mood, normal affect. No suicidal thoughts/ideations. No homocidal thoughts/ideations. No hallucinations. SKIN: Warm, dry, normal turgor, no rashes or lesions noted. ASSESSMENT AND PLAN: This patient is a 63-year-old female who presents with mechanical fall that could be near syncope resulting in pain and swelling to the nose and midface. Unlikely to represent cardiac syncope versus intracranial pathology versus fracture. 1. CT scans of the face, head, and cervical spine are all negative for acute pathology. 2. Labs and urinalysis are negative. 3. Patient will be discharged home with return precautions and follow-up as needed. Patient voices understanding and agreeing with the plan. TRAVEL OUTSIDE OF THE [place] IN LAST 30 DAYS: No - Related data Allergies/Adverse Reactions: Beta-Blockers (Beta-Adrenergic Bloc Allergy (Unknown, Verified 12/23/18 16:23) ondansetron HCl [From Zofran] Allergy (Unknown, Verified 12/23/18 16:23) Sulfa (Sulfonamide Antibiotics) Allergy (Unknown, Verified 12/23/18 16:23) hydrocodone Adverse Reaction (Unknown, Verified 12/23/18 16:23) naproxen [Naproxen] Adverse Reaction (Unknown, Verified 12/23/18 16:23) Past Medical History - General Information source: Patient - Social History Smoking Status: Never Smoker Chew tobacco use (# tins/day): No Frequency of alcohol use: None Drug Abuse: None Lives with: Family Family History: Reviewed & Not Pertinent, DM, Malignancy Patient has suicidal ideation: No Patient has homicidal ideation: No - Past Medical History Cardiac Medical History: Reports: Hx Atrial Fibrillation, Hx Coronary Artery Disease, Hx Heart Attack - x 4, Hx Hypercholesterolemia, Hx Hypertension Pulmonary Medical History: Reports: None EENT Medical History: Reports: None Neurological Medical History: Reports: Hx Seizures Endocrine Medical History: Reports: Hx Diabetes Mellitus Type 1, Hx Diabetes Mellitus Type 2 Renal/ Medical History: Reports: None. 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 Denies: Hx Genitourinary Surgery - Immunizations Immunizations up to date: Yes Hx Diphtheria, Pertussis, Tetanus Vaccination: Yes Hx Pneumococcal Vaccination: 01/18/11 Physical Exam - Vital signs Vitals: Temp Pulse Resp BP Pulse Ox 97.8 F 65 18 172/98 H 100 12/23/18 13:51 12/23/18 13:51 12/23/18 13:51 12/23/18 13:51 12/23/18 13:51 Course - Vital Signs Vital signs: Temp Pulse Resp BP Pulse Ox 97.8 F 71 20 207/99 H 100 12/23/18 21:30 12/23/18 21:30 12/23/18 21:30 12/23/18 21:30 12/23/18 21:30 - Diagnostic Test Radiology reviewed: Image reviewed, Reports reviewed Discharge - Discharge Clinical Impression: Facial contusion Qualifiers: Encounter type: initial encounter Qualified Code(s): S00.83XA - Contusion of other part of head, initial encounter Condition: Good Disposition: HOME, SELF-CARE Instructions: Contusion ([facility]) Additional Instructions: You have been evaluated in the Emergency Department for falling and hitting your face. While here, you had both blood work and CAT scan imaging of your head and neck that were all normal and it is now safe to be discharged home. Please follow-up with your primary physician as instructed in 1 week to be rechecked. Return to the Emergency Department if you experience confusion, disorientation, difficulty walking, or any other concerning symptoms. Prescriptions: Tramadol HCl [Ultram 50 mg Tablet] 50 mg PO Q6HP PRN #28 tablet PRN Reason: For Pain Referrals: HARMAN HAHN PA-C [NURSE PRACTITIONER] - Follow up as needed Print Language: Ecuadorean
[2018-12-23 22:25] VITALS: BP 207/99
== END 2018-12-23 21:40 | disposition home or self-care (01) ==
LOC: ER 13:31
DX: S00.83XA Contusion of other part of head, initial encounter (principal); R51 Headache; W18.39XA Other fall on same level, initial encounter; E11.9 Type 2 diabetes mellitus without complications; I48.91 Unspecified atrial fibrillation; I25.10 Atherosclerotic heart disease of native coronary artery without angina pectoris; E78.00 Pure hypercholesterolemia, unspecified; I10 Essential (primary) hypertension; Z90.49 Acquired absence of other specified parts of digestive tract; I25.2 Old myocardial infarction
CPT/HCPCS: 99283; 70450; 70486; 72125; A9270

== ENCOUNTER → 2019-04-24 | Outpatient (CLI) | payer MEDICARE, OTHER ==
--- NOTE | 2019-04-24 13:11 | WOMENS IMAGING REPORT ---
EXAM DESCRIPTION: BONE DENSITY HIP/SPINE COMPLETED DATE/TIME: 04/24/2019 9:55 am REASON FOR STUDY: Z78.0 ASYMPTOMATIC MENOPAUSAL STATE Z12.31 ENCNTR SCREEN MAMMOGRAM FOR MALIGNANT NEOPLASM OF LAVINIA Z78.0 ASYMPTOMATIC MENOPAUSAL STATE COMPARISON: None. TECHNIQUE: Dual-Energy X-ray Absorptiometry (DEXA) of the AP Spine and Hip. LIMITATIONS: None. FINDINGS: LUMBAR SPINE: The bone mineral density (BMD) measured from L1-L4 in the AP projection correlates with a T-score of -1.6, which is osteopenia as defined by the World Health Organization. HIP: The bone mineral density (BMD) measured in the left hip correlates with a T-score of -1.2 in the femo ral neck, which is osteopenia as defined by the World Health Organization. IMPRESSION: 1. LUMBAR SPINE: OSTEOPENIA. 2. HIP: OSTEOPENIA. COMMENT: Patient has a 10 year risk of major osteoporotic fracture of 16%. Her 10 year risk of hip fracture is 0.9%. The World Health Organization defines low BMD as follows: T-score: Normal: Greater than -1.0 Osteopenia: Between -1.0 and -2.5 Osteoporosis: Less than -2.5 without fractures Established osteoporosis: Less than -2.5 with fractures In general, you may wish to consider: Diagnosis Treatment Follow-up DEXA Normal BMD Prevention 2-3 years Osteopenia Prevention/Therapy 1-2 years Osteoporosis Therapy Yearly TECHNICAL DOCUMENTATION: JOB ID: [id number] [employer]- All Rights Reserved Reading location - IP/workstation name: [email or web address]
--- NOTE | 2019-04-25 08:42 | WOMENS IMAGING REPORT ---
EXAM DESCRIPTION: 3D SCREENING MAMMO BILAT COMPLETED DATE/TIME: 04/24/2019 9:55 am REASON FOR STUDY: Z12.31 ENCOUNTER FOR SCREENING MAMMOGRAM FOR MALIGNANT NEOPLASM OF BREAST Z12.31 ENCNTR SCREEN MAMMOGRAM FOR MALIGNANT NEOPLASM OF LAVINIA Z78.0 ASYMPTOMATIC MENOPAUSAL STATE COMPARISON: Multiple since 2008 EXAM PARAMETERS: Views: Standard craniocaudal and mediolateral oblique views of each breast recorded using digital acquisition and breast tomosynthesis. Read with the assistance of CAD. .[facility] - [employer] Operator Version 9.2 LIMITATIONS: None. FINDINGS: No suspicious masses, suspicious calcifications or architectural distortion. No areas of c oncern. IMPRESSION: NEGATIVE MAMMOGRAM. BIRADS 1. BREAST DENSITY: a. The breasts are almost entirely fatty. BIRAD: ASSESSMENT: 1 NEGATIVE RECOMMENDATION: ROUTINE SCREENING COMMENT: The patient has been notified of the results by letter per MQSA requirements. Additional no tification policies are in place for contacting patient with suspicious or incomplete findings. Quality ID #225: The [employer] recommends an annual screening mammogram for women aged 40 years or over. This facility utilizes a reminder system to ensure that all patients receive reminder letters, and/or direct phone calls for appointments. This includes reminders for routine scr eening mammograms, diagnostic mammograms, or other Breast Imaging Interventions when appropriate. Th is patient will be placed in the appropriate reminder system. TECHNICAL DOCUMENTATION: FINDING NUMBER: (1) ASSESSMENT: (1) JOB ID: [id number] [employer]- All Rights Reserved Reading location - IP/workstation name: [email or web address]
== END ==
LOC: WI 09:19
PROVIDERS: ATTEND Physician Assistant
DX: Z12.31 Encounter for screening mammogram for malignant neoplasm of breast (principal); Z78.0 Asymptomatic menopausal state
CPT/HCPCS: 77063; 77067; 77080

== ENCOUNTER → 2019-07-16 | Outpatient (CLI) | payer MEDICARE, OTHER ==
[2019-07-16 09:52] LABS: ABSOLUTE EOSINOPHILS # (AUTO) 0.1 10^3/uL (0.0-0.6); ABSOLUTE LYMPHOCYTES (AUTO) 0.7 10^3/uL (0.5-4.7); ABSOLUTE MONOCYTES (AUTO) 0.4 10^3/uL (0.1-1.4); ABSOLUTE NEUT (AUTO) 4.4 10^3/uL (1.7-8.2); BASOPHILS % (AUTO) 0.4 % (0-2); EOSINOPHILS % (AUTO) 1.5 % (0-6); HEMATOCRIT 37.3 % (36.0-47.0); HEMOGLOBIN 12.8 g/dL (12.0-15.5); LYMPHOCYTES % (AUTO) 12.5 % (13-45); MEAN CORPUSCULAR HGB CONC 34.4 g/dL (32.0-36.0); MEAN CORPUSCULAR VOLUME 90 fl (80-97); MONOCYTES % (AUTO) 6.5 % (3-13); PLATELET COUNT 149 10^3/uL (150-450); RED BLOOD COUNT 4.13 10^6/uL (3.72-5.28); SEGMENTED NEUTROPHILS % (AUTO) 79.1 % (42-78); TOTAL CELLS COUNTED % (AUTO) 100 %; WHITE BLOOD COUNT 5.6 10^3/uL (4.0-10.5)
[2019-07-16 10:14] LABS: ALBUMIN 4.2 g/dL (3.5-5.0); ALKALINE PHOSPHATASE 50 U/L (38-126); ANION GAP 10 (5-19); ASPARTATE AMINO TRANSFERASE 25 U/L (14-36); BILIRUBIN,DIRECT 0.2 mg/dL (0.0-0.4); BILIRUBIN,TOTAL 0.4 mg/dL (0.2-1.3); BLOOD UREA NITROGEN 18 mg/dL (7-20); CALCIUM 9.1 mg/dL (8.4-10.2); CARBON DIOXIDE 23 mmol/L (22-30); CHLORIDE 104 mmol/L (98-107); CHOLESTEROL 159.07 mg/dL (0-200); GLUCOSE 87 mg/dL (75-110); POTASSIUM 4.2 mmol/L (3.6-5.0); TOTAL PROTEIN 6.7 g/dL (6.3-8.2); TRIGLYCERIDES 81 mg/dL (<150)
[2019-07-16 10:26] LABS: DIRECT LDL 99 mg/dL (<100)
[2019-07-17 11:08] LABS: MICROALBUMIN URINE <3.0 ug/mL (Not Estab.)
== END ==
LOC: OD 09:16
PROVIDERS: ATTEND Physician Assistant
DX: E11.9 Type 2 diabetes mellitus without complications (principal); E78.2 Mixed hyperlipidemia; Z79.899 Other long term (current) drug therapy
CPT/HCPCS: 36415; 80053; 80061; 82043; 82570; 84443; 85025

== ENCOUNTER → 2019-09-02 | Outpatient (CLI) | payer MEDICARE, OTHER ==
[2019-09-04 14:37] LABS: ABSOLUTE EOSINOPHILS # (AUTO) 0.1 10^3/uL (0.0-0.6); ABSOLUTE LYMPHOCYTES (AUTO) 0.9 10^3/uL (0.5-4.7); ABSOLUTE MONOCYTES (AUTO) 0.3 10^3/uL (0.1-1.4); ABSOLUTE NEUT (AUTO) 2.9 10^3/uL (1.7-8.2); BASOPHILS % (AUTO) 0.6 % (0-2); HEMATOCRIT 37.2 % (36.0-47.0); HEMOGLOBIN 12.8 g/dL (12.0-15.5); LYMPHOCYTES % (AUTO) 22.2 % (13-45); MEAN CORPUSCULAR HEMOGLOBIN 31.5 pg (27.0-33.4); MEAN CORPUSCULAR HGB CONC 34.5 g/dL (32.0-36.0); MEAN CORPUSCULAR VOLUME 91 fl (80-97); MONOCYTES % (AUTO) 6.8 % (3-13); PLATELET COUNT 145 10^3/uL (150-450); RED BLOOD COUNT 4.07 10^6/uL (3.72-5.28); SEGMENTED NEUTROPHILS % (AUTO) 68.4 % (42-78); TOTAL CELLS COUNTED % (AUTO) 100 %; WHITE BLOOD COUNT 4.3 10^3/uL (4.0-10.5)
[2019-09-04 15:04] LABS: ALBUMIN 4.6 g/dL (3.5-5.0); ALKALINE PHOSPHATASE 50 U/L (38-126); ASPARTATE AMINO TRANSFERASE 27 U/L (14-36); BILIRUBIN,DIRECT 0.2 mg/dL (0.0-0.4); BILIRUBIN,TOTAL 0.3 mg/dL (0.2-1.3); TOTAL PROTEIN 7.2 g/dL (6.3-8.2)
== END ==
LOC: OD 11:02
PROVIDERS: ATTEND Nurse Practitioner Family
DX: G35 Multiple sclerosis (principal); Z11.4 Encounter for screening for human immunodeficiency virus [HIV]
CPT/HCPCS: 36415; 80076; 85025; 86317; 86480; 86701

== ENCOUNTER → 2019-11-06 | Outpatient (CLI) | payer MEDICARE, OTHER ==
[2019-11-06 11:38] LABS: ALBUMIN 4.3 g/dL (3.5-5.0); ALKALINE PHOSPHATASE 43 U/L (38-126); ANION GAP 12 (5-19); ASPARTATE AMINO TRANSFERASE 24 U/L (14-36); BILIRUBIN,DIRECT 0.2 mg/dL (0.0-0.4); BILIRUBIN,TOTAL 0.4 mg/dL (0.2-1.3); BLOOD UREA NITROGEN 17 mg/dL (7-20); CALCIUM 9.2 mg/dL (8.4-10.2); CARBON DIOXIDE 23 mmol/L (22-30); CHLORIDE 104 mmol/L (98-107); CHOLESTEROL 113.74 mg/dL (0-200); GLUCOSE 83 mg/dL (75-110); POTASSIUM 4.1 mmol/L (3.6-5.0); TOTAL PROTEIN 7.2 g/dL (6.3-8.2); TRIGLYCERIDES 58 mg/dL (<150)
[2019-11-06 11:49] LABS: DIRECT LDL 55 mg/dL (<100)
== END ==
LOC: OD 10:41
PROVIDERS: ATTEND Physician Assistant
DX: E78.2 Mixed hyperlipidemia (principal)
CPT/HCPCS: 36415; 80053; 80061

== ENCOUNTER → 2019-12-15 | Outpatient (CLI) | payer MEDICARE, OTHER ==
[2019-12-15 12:46] LABS: HEMATOCRIT 35.6 % (36.0-47.0); HEMOGLOBIN 12.5 g/dL (12.0-15.5); MEAN CORPUSCULAR HEMOGLOBIN 32.5 pg (27.0-33.4); MEAN CORPUSCULAR VOLUME 93 fl (80-97); PLATELET COUNT 124 10^3/uL (150-450); RED BLOOD COUNT 3.84 10^6/uL (3.72-5.28); RED CELL DISTRIBUTION WIDTH 14.7 % (11.5-14.0)
[2019-12-15 13:06] LABS: ALBUMIN 3.7 g/dL (3.5-5.0); ALKALINE PHOSPHATASE 50 U/L (38-126); ANION GAP 5 (5-19); ASPARTATE AMINO TRANSFERASE 33 U/L (14-36); BILIRUBIN,TOTAL 0.2 mg/dL (0.2-1.3); BLOOD UREA NITROGEN 10 mg/dL (7-20); CALCIUM 8.5 mg/dL (8.4-10.2); CARBON DIOXIDE 28 mmol/L (22-30); CHLORIDE 107 mmol/L (98-107); GLUCOSE 114 mg/dL (75-110); POTASSIUM 4.1 mmol/L (3.6-5.0); TOTAL PROTEIN 6.1 g/dL (6.3-8.2)
[2019-12-15 13:13] LABS: WHITE BLOOD COUNT 1.8 10^3/uL (4.0-10.5)
[2019-12-15 13:19] LABS: FREE T3 3.13 pg/mL (2.77-5.27); FREE T4 (FREE THYROXINE) 1.01 ng/dL (0.78-2.19)
[2019-12-16 10:17] LABS: T3 UPTAKE (RESIN) 23 % (24-39)
[2019-12-16 13:31] LABS: PATH REVIEW PATHOLOGIST REVIEWED
== END ==
LOC: OD 11:46
PROVIDERS: ATTEND Nurse Practitioner Family
DX: G35 Multiple sclerosis (principal); Z79.899 Other long term (current) drug therapy
CPT/HCPCS: 36415; 80053; 84439; 84443; 84479; 84481; 85027

== ENCOUNTER → 2019-12-22 | Outpatient (CLI) | payer MEDICARE, OTHER ==
[2019-12-22 15:41] LABS: ABSOLUTE EOSINOPHILS # (AUTO) 0.1 10^3/uL (0.0-0.6); ABSOLUTE LYMPHOCYTES (AUTO) 0.3 10^3/uL (0.5-4.7); ABSOLUTE MONOCYTES (AUTO) 0.3 10^3/uL (0.1-1.4); ABSOLUTE NEUT (AUTO) 1.8 10^3/uL (1.7-8.2); BASOPHILS % (AUTO) 1.3 % (0-2); HEMATOCRIT 38.2 % (36.0-47.0); HEMOGLOBIN 13.2 g/dL (12.0-15.5); LYMPHOCYTES % (AUTO) 12.2 % (13-45); MEAN CORPUSCULAR HGB CONC 34.5 g/dL (32.0-36.0); MEAN CORPUSCULAR VOLUME 93 fl (80-97); MONOCYTES % (AUTO) 12.4 % (3-13); PLATELET COUNT 161 10^3/uL (150-450); RED BLOOD COUNT 4.11 10^6/uL (3.72-5.28); RED CELL DISTRIBUTION WIDTH 15.1 % (11.5-14.0); SEGMENTED NEUTROPHILS % (AUTO) 71.1 % (42-78); TOTAL CELLS COUNTED % (AUTO) 100 %; WHITE BLOOD COUNT 2.5 10^3/uL (4.0-10.5)
== END ==
LOC: OD 15:07
PROVIDERS: ATTEND Nurse Practitioner Family
DX: G35 Multiple sclerosis (principal); G40.89 Other seizures
CPT/HCPCS: 36415; 85025

== ENCOUNTER → 2020-01-08 | Outpatient (CLI) | payer MEDICARE, OTHER ==
[2020-01-08 12:01] LABS: ABSOLUTE EOSINOPHILS # (AUTO) 0.1 10^3/uL (0.0-0.6); ABSOLUTE LYMPHOCYTES (AUTO) 0.3 10^3/uL (0.5-4.7); ABSOLUTE MONOCYTES (AUTO) 0.2 10^3/uL (0.1-1.4); ABSOLUTE NEUT (AUTO) 2.1 10^3/uL (1.7-8.2); BASOPHILS % (AUTO) 1.1 % (0-2); EOSINOPHILS % (AUTO) 4.6 % (0-6); HEMATOCRIT 36.8 % (36.0-47.0); HEMOGLOBIN 12.6 g/dL (12.0-15.5); LYMPHOCYTES % (AUTO) 11.4 % (13-45); MEAN CORPUSCULAR HEMOGLOBIN 32.4 pg (27.0-33.4); MEAN CORPUSCULAR HGB CONC 34.4 g/dL (32.0-36.0); MEAN CORPUSCULAR VOLUME 94 fl (80-97); MONOCYTES % (AUTO) 7.6 % (3-13); PLATELET COUNT 155 10^3/uL (150-450); RED CELL DISTRIBUTION WIDTH 15.4 % (11.5-14.0); SEGMENTED NEUTROPHILS % (AUTO) 75.3 % (42-78); TOTAL CELLS COUNTED % (AUTO) 100 %; WHITE BLOOD COUNT 2.8 10^3/uL (4.0-10.5)
== END ==
LOC: OD 10:58
PROVIDERS: ATTEND Nurse Practitioner Family
DX: G35 Multiple sclerosis (principal); G40.89 Other seizures
CPT/HCPCS: 36415; 85025

== ENCOUNTER → 2020-02-13 | Outpatient (CLI) | payer MEDICARE, OTHER ==
[2020-02-13 07:37] LABS: ABSOLUTE EOSINOPHILS # (AUTO) 0.1 10^3/uL (0.0-0.6); ABSOLUTE LYMPHOCYTES (AUTO) 0.4 10^3/uL (0.5-4.7); ABSOLUTE MONOCYTES (AUTO) 0.3 10^3/uL (0.1-1.4); ABSOLUTE NEUT (AUTO) 2.8 10^3/uL (1.7-8.2); BASOPHILS % (AUTO) 0.6 % (0-2); EOSINOPHILS % (AUTO) 3.4 % (0-6); HEMATOCRIT 36.1 % (36.0-47.0); HEMOGLOBIN 12.7 g/dL (12.0-15.5); LYMPHOCYTES % (AUTO) 11.3 % (13-45); MEAN CORPUSCULAR HEMOGLOBIN 33.4 pg (27.0-33.4); MEAN CORPUSCULAR VOLUME 95 fl (80-97); MONOCYTES % (AUTO) 8.7 % (3-13); PLATELET COUNT 153 10^3/uL (150-450); RED BLOOD COUNT 3.79 10^6/uL (3.72-5.28); RED CELL DISTRIBUTION WIDTH 13.8 % (11.5-14.0); TOTAL CELLS COUNTED % (AUTO) 100 %; WHITE BLOOD COUNT 3.7 10^3/uL (4.0-10.5)
== END ==
LOC: OD 07:06
PROVIDERS: ATTEND Nurse Practitioner Family
DX: G35 Multiple sclerosis (principal); G40.89 Other seizures
CPT/HCPCS: 36415; 85025

== ENCOUNTER → 2020-03-12 | Outpatient (CLI) | payer MEDICARE, OTHER ==
[2020-03-12 10:25] LABS: ABSOLUTE EOSINOPHILS # (AUTO) 0.1 10^3/uL (0.0-0.6); ABSOLUTE LYMPHOCYTES (AUTO) 0.4 10^3/uL (0.5-4.7); ABSOLUTE MONOCYTES (AUTO) 0.2 10^3/uL (0.1-1.4); ABSOLUTE NEUT (AUTO) 2.6 10^3/uL (1.7-8.2); BASOPHILS % (AUTO) 0.8 % (0-2); EOSINOPHILS % (AUTO) 2.4 % (0-6); HEMATOCRIT 41.6 % (36.0-47.0); HEMOGLOBIN 14.6 g/dL (12.0-15.5); LYMPHOCYTES % (AUTO) 12.8 % (13-45); MEAN CORPUSCULAR HGB CONC 35.1 g/dL (32.0-36.0); MEAN CORPUSCULAR VOLUME 94 fl (80-97); PLATELET COUNT 139 10^3/uL (150-450); RED BLOOD COUNT 4.43 10^6/uL (3.72-5.28); RED CELL DISTRIBUTION WIDTH 12.8 % (11.5-14.0); TOTAL CELLS COUNTED % (AUTO) 100 %; WHITE BLOOD COUNT 3.4 10^3/uL (4.0-10.5)
== END ==
LOC: OD 09:48
PROVIDERS: ATTEND Nurse Practitioner Family
DX: G35 Multiple sclerosis (principal); G40.89 Other seizures
CPT/HCPCS: 36415; 85025

== ENCOUNTER → 2020-04-14 | Outpatient (CLI) | payer MEDICARE, OTHER ==
[2020-04-14 12:31] LABS: ABSOLUTE EOSINOPHILS # (AUTO) 0.1 10^3/uL (0.0-0.6); ABSOLUTE LYMPHOCYTES (AUTO) 0.5 10^3/uL (0.5-4.7); ABSOLUTE MONOCYTES (AUTO) 0.3 10^3/uL (0.1-1.4); ABSOLUTE NEUT (AUTO) 2.2 10^3/uL (1.7-8.2); BASOPHILS % (AUTO) 0.9 % (0-2); EOSINOPHILS % (AUTO) 2.9 % (0-6); HEMATOCRIT 38.4 % (36.0-47.0); HEMOGLOBIN 13.4 g/dL (12.0-15.5); LYMPHOCYTES % (AUTO) 16.3 % (13-45); MEAN CORPUSCULAR HEMOGLOBIN 32.1 pg (27.0-33.4); MEAN CORPUSCULAR HGB CONC 34.9 g/dL (32.0-36.0); MEAN CORPUSCULAR VOLUME 92 fl (80-97); MONOCYTES % (AUTO) 8.4 % (3-13); PLATELET COUNT 152 10^3/uL (150-450); RED BLOOD COUNT 4.18 10^6/uL (3.72-5.28); RED CELL DISTRIBUTION WIDTH 13.1 % (11.5-14.0); SEGMENTED NEUTROPHILS % (AUTO) 71.5 % (42-78); TOTAL CELLS COUNTED % (AUTO) 100 %; WHITE BLOOD COUNT 3.1 10^3/uL (4.0-10.5)
== END ==
LOC: OD 11:24
PROVIDERS: ATTEND Nurse Practitioner Family
DX: G35 Multiple sclerosis (principal); G40.89 Other seizures
CPT/HCPCS: 36415; 85025

== ENCOUNTER → 2020-06-25 | Outpatient (CLI) | payer MEDICARE, OTHER ==
[2020-06-25 13:29] LABS: ABSOLUTE EOSINOPHILS # (AUTO) 0.1 10^3/uL (0.0-0.6); ABSOLUTE LYMPHOCYTES (AUTO) 0.4 10^3/uL (0.5-4.7); ABSOLUTE MONOCYTES (AUTO) 0.2 10^3/uL (0.1-1.4); ABSOLUTE NEUT (AUTO) 2.8 10^3/uL (1.7-8.2); BASOPHILS % (AUTO) 0.8 % (0-2); EOSINOPHILS % (AUTO) 2.3 % (0-6); HEMATOCRIT 38.8 % (36.0-47.0); HEMOGLOBIN 13.4 g/dL (12.0-15.5); LYMPHOCYTES % (AUTO) 12.4 % (13-45); MEAN CORPUSCULAR HEMOGLOBIN 32.5 pg (27.0-33.4); MEAN CORPUSCULAR HGB CONC 34.6 g/dL (32.0-36.0); MEAN CORPUSCULAR VOLUME 94 fl (80-97); MONOCYTES % (AUTO) 4.7 % (3-13); PLATELET COUNT 157 10^3/uL (150-450); RED BLOOD COUNT 4.13 10^6/uL (3.72-5.28); RED CELL DISTRIBUTION WIDTH 13.2 % (11.5-14.0); SEGMENTED NEUTROPHILS % (AUTO) 79.8 % (42-78); TOTAL CELLS COUNTED % (AUTO) 100 %; WHITE BLOOD COUNT 3.6 10^3/uL (4.0-10.5)
== END ==
LOC: OD 11:41
PROVIDERS: ATTEND Nurse Practitioner Family
DX: G35 Multiple sclerosis (principal); G40.89 Other seizures
CPT/HCPCS: 36415; 85025

== ENCOUNTER 2020-06-29 07:53 | Day surgery (SDC) | payer MEDICARE, OTHER ==
[~2020-06-29 07:53] MED LIST: KETOROLAC TROMETHAMINE 0.45% 4 DROP/0.4 ML DROPERETTE OD PRN
[2020-06-29] MEDS: BESIFLOXACIN HCL 0.6% OPH SUSP 5 ML BOTTLE OD PRN ×4 (08:06→09:04)
[2020-06-29] MEDS: TROPICAMIDE 1% OPH SOLN 15 ML OD PRN ×3 (08:06→08:26)
[2020-06-29] MEDS: CYCLOPENTOLATE 0.2%/PHENYLEPHRINE 1% OPH SOLN 2 ML OD PRN ×3 (08:06→08:26)
[2020-06-29] MEDS: TETRACAINE HCL 0.5% OPH SOLN 4 ML OD PRN ×4 (08:07→08:43)
[2020-06-29] MEDS: BUPIVACAINE HCL 0.75% INJ/PF (7.5 MG/1 ML) 10 ML SDV OD PRN ×2 (08:43)
[2020-06-29] MEDS: LIDOCAINE 4% INJ/PF (40 MG/ML) 5 ML AMPUL OD PRN ×2 (08:43)
[2020-06-29] MEDS ORDERED: FENTANYL CITRATE INJ/PF 100 MCG/2 ML AMPUL ONE (08:45)
[2020-06-29] MEDS ORDERED: MIDAZOLAM 2 MG/2 ML INJ ONE (08:45)
[2020-06-29] MEDS: LIDOCAINE 1% INJ-PF (10 MG/ML) 30 ML SDV ONE ×2 (08:52)
[2020-06-29] MEDS: EPINEPHRINE INJ/PF 1 MG/1 ML AMPULE ONE ×2 (08:52)
[2020-06-29] MEDS: CHONDR SU A NA/HYALUR INTRAOC KIT (SURGICARE) ONE ×2 (08:52)
[2020-06-29] MEDS: DORZOLAMIDE HCL 2%/TIMOLOL MALEAT 0.5% OPH SOLN 10 ML OD PRN ×2 (09:04)
[2020-06-29] MEDS: PREDNISOLONE ACETATE 1% OPH SUSP 5 ML OD PRN ×2 (09:04)
--- NOTE | 2020-06-29 14:38 | Operative Report ---
Operative Report-[facility] Operative Report: DATE OF SURGERY: 06/29/2020 PREOPERATIVE DIAGNOSIS: CATARACT, RIGHT EYE. POSTOPERATIVE DIAGNOSIS: CATARACT, RIGHT EYE. PROCEDURE PERFORMED: PHACOEMULSIFICATION WITH POSTERIOR CHAMBER INTRAOCULAR LENS, RIGHT EYE. Intraocular Lens Model : ZCBOO 21.5 Total Phaco Time: 4.36 CDE SURGEON: SERGEI CRISTINA MD ANESTHESIA: TOPICAL WITH MAC. INDICATIONS FOR SURGERY: Difficulty sewing and reading small print. PROCEDURE: The patient was brought to the Operating Room and placed on the operative table. Following tetracaine drops, topical anesthesia was administered. This consisted of instrument wipe pledgets soaked in a solution of 4% Xylocaine mixed with 0.75% Marcaine in a 1:2 ratio. A 2 x 1 cm pledget was placed in the superior fornix. A 1 x 1 cm pledget was placed in the inferior fornix. The eye was patched shut for 5 minutes. The patch was removed. The eye was sterilely prepped and draped in the usual manner. Lid speculum was placed in the eye. The pledgets were removed. 4-0 black silk sutures were placed around the superior and the inferior rectus muscles to be used as traction. A conjunctival peritomy was made at the 10 o'clock position. Hemostasis was obtained with bipolar cautery. A posterior limbal groove was created using a crescent knife and dissected anteriorly towards the cornea. A sharp point blade was used to create a paracentesis site at the 2 o'clock position. 0.2 cc non preserved Lidocaine was injected into the anterior chamber. A 2.4 mm keratome was used to enter the anterior chamber through the groove. Viscoelastic was injected into the anterior chamber. An anterior capsulotomy was performed using Utrata forceps in a capsulorrhexis fashion. Hydrodissection and hydrodelineation were performed. Phacoemulsification was performed in [id number] technique. Following this, the I/A unit was used to remove residual cortex. Viscoelastic was injected into the capsular bag. The Intraocular lens was placed in the capsular bag. The I/A unit was used to remove residual viscoelastic. The wound was seen to be watertight under high and low pressure, and no sutures were placed. The intraocular lens was well centered. The pressure was adjusted in the eye to normal pressure. The 4-0 black silk sutures and lid speculum were removed. The eye was shielded after Besivance. prednisolone, and Cosopt drops were placed. The patient tolerated the procedure well and was sent to the Recovery Room in good condition.
== END 2020-06-29 09:52 | disposition home or self-care (01) ==
LOC: SC 07:53
PROVIDERS: ATTEND Ophthalmology
DX: H25.11 Age-related nuclear cataract, right eye (principal); Z96.1 Presence of intraocular lens; H16.223 Keratoconjunctivitis sicca, not specified as Sjogren's, bilateral; I10 Essential (primary) hypertension; I25.2 Old myocardial infarction; E78.00 Pure hypercholesterolemia, unspecified; E11.9 Type 2 diabetes mellitus without complications; G47.33 Obstructive sleep apnea (adult) (pediatric); I25.10 Atherosclerotic heart disease of native coronary artery without angina pectoris; G35 Multiple sclerosis
CPT/HCPCS: 66984; V2632; J2250; J3490 ×5; A9270; J0171; J3010; 142

== ENCOUNTER → 2020-08-11 | Outpatient (CLI) | payer MEDICARE, OTHER ==
[2020-08-11 13:57] LABS: ABSOLUTE EOSINOPHILS # (AUTO) 0.1 10^3/uL (0.0-0.6); ABSOLUTE LYMPHOCYTES (AUTO) 0.5 10^3/uL (0.5-4.7); ABSOLUTE MONOCYTES (AUTO) 0.2 10^3/uL (0.1-1.4); ABSOLUTE NEUT (AUTO) 2.3 10^3/uL (1.7-8.2); BASOPHILS % (AUTO) 0.6 % (0-2); EOSINOPHILS % (AUTO) 2.1 % (0-6); HEMATOCRIT 38.3 % (36.0-47.0); HEMOGLOBIN 13.5 g/dL (12.0-15.5); LYMPHOCYTES % (AUTO) 15.2 % (13-45); MEAN CORPUSCULAR HGB CONC 35.4 g/dL (32.0-36.0); MEAN CORPUSCULAR VOLUME 93 fl (80-97); PLATELET COUNT 156 10^3/uL (150-450); RED BLOOD COUNT 4.11 10^6/uL (3.72-5.28); RED CELL DISTRIBUTION WIDTH 13.2 % (11.5-14.0); SEGMENTED NEUTROPHILS % (AUTO) 75.1 % (42-78); TOTAL CELLS COUNTED % (AUTO) 100 %; WHITE BLOOD COUNT 3.1 10^3/uL (4.0-10.5)
== END ==
LOC: OD 12:06
PROVIDERS: ATTEND Nurse Practitioner Family
DX: G35 Multiple sclerosis (principal); G40.89 Other seizures
CPT/HCPCS: 36415; 85025

== ENCOUNTER → 2020-08-19 | Outpatient (CLI) | payer MEDICARE, OTHER ==
--- NOTE | 2020-08-19 11:09 | WOMENS IMAGING REPORT ---
EXAM DESCRIPTION: 3D SCREENING MAMMO BILAT IMAGES COMPLETED DATE/TIME: 08/19/2020 10:30 am REASON FOR STUDY: Z12.31 ENCNTR SCREEN MAMMOGRAM FOR MALIGNANT NEOPLASM OF BREAST Z12.31 ENCNTR SCR EEN MAMMOGRAM FOR MALIGNANT NEOPLASM OF LAVINIA COMPARISON: 04/24/2019 and 01/28/2018. EXAM PARAMETERS: Views: Standard craniocaudal and mediolateral oblique views of each breast recorded using digital acquisition and breast tomosynthesis. Read with the assistance of CAD. .[facility] - [employer] M[employer] Room Operator Version 9.2 LIMITATIONS: None. FINDINGS: No suspicious masses, suspicious calcifications or architectural distortion. No areas of c oncern. IMPRESSION: NEGATIVE MAMMOGRAM. BIRADS 1. BREAST DENSITY: a. The breasts are almost entirely fatty. BIRAD: ASSESSMENT: 1 NEGATIVE RECOMMENDATION: ROUTINE SCREENING COMMENT: The patient has been notified of the results by letter per MQSA requirements. Additional no tification policies are in place for contacting patient with suspicious or incomplete findings. Quality ID #[id number]: The [employer] recommends an annual screening mammogram for women aged 40 years or over. This facility utilizes a reminder system to ensure that all patients receive reminder letters, and/or direct phone calls for appointments. This includes reminders for routine scr eening mammograms, diagnostic mammograms, or other Breast Imaging Interventions when appropriate. Th is patient will be placed in the appropriate reminder system. TECHNICAL DOCUMENTATION: FINDING NUMBER: (1) ASSESSMENT: (1) JOB ID: [id number] 2010 [employer]- All Rights Reserved Reading location - IP/workstation name: [email or web address]
== END ==
LOC: WI 10:06
PROVIDERS: ATTEND Physician Assistant
DX: Z12.31 Encounter for screening mammogram for malignant neoplasm of breast (principal)
CPT/HCPCS: 77063; 77067

== ENCOUNTER → 2020-09-22 | Outpatient (CLI) | payer MEDICARE, OTHER ==
[2020-09-22 11:21] LABS: ABSOLUTE EOSINOPHILS # (AUTO) 0.1 10^3/uL (0.0-0.6); ABSOLUTE LYMPHOCYTES (AUTO) 0.5 10^3/uL (0.5-4.7); ABSOLUTE MONOCYTES (AUTO) 0.2 10^3/uL (0.1-1.4); ABSOLUTE NEUT (AUTO) 2.5 10^3/uL (1.7-8.2); BASOPHILS % (AUTO) 0.8 % (0-2); HEMATOCRIT 38.2 % (36.0-47.0); HEMOGLOBIN 13.3 g/dL (12.0-15.5); MEAN CORPUSCULAR HEMOGLOBIN 32.6 pg (27.0-33.4); MEAN CORPUSCULAR HGB CONC 34.9 g/dL (32.0-36.0); MEAN CORPUSCULAR VOLUME 93 fl (80-97); MONOCYTES % (AUTO) 6.6 % (3-13); PLATELET COUNT 150 10^3/uL (150-450); RED CELL DISTRIBUTION WIDTH 13.8 % (11.5-14.0); SEGMENTED NEUTROPHILS % (AUTO) 74.6 % (42-78); TOTAL CELLS COUNTED % (AUTO) 100 %; WHITE BLOOD COUNT 3.3 10^3/uL (4.0-10.5)
[2020-09-22 11:43] LABS: ALBUMIN 4.6 g/dL (3.5-5.0); ALKALINE PHOSPHATASE 40 U/L (38-126); ANION GAP 11 (5-19); ASPARTATE AMINO TRANSFERASE 21 U/L (14-36); BILIRUBIN,DIRECT 0.1 mg/dL (0.0-0.4); BILIRUBIN,TOTAL 0.4 mg/dL (0.2-1.3); BLOOD UREA NITROGEN 14 mg/dL (7-20); CALCIUM 9.5 mg/dL (8.4-10.2); CARBON DIOXIDE 23 mmol/L (22-30); CHLORIDE 110 mmol/L (98-107); GLUCOSE 89 mg/dL (75-110); POTASSIUM 4.2 mmol/L (3.6-5.0); TOTAL PROTEIN 7.3 g/dL (6.3-8.2)
== END ==
LOC: OD 10:38
PROVIDERS: ATTEND Nurse Practitioner Family
DX: G35 Multiple sclerosis (principal)
CPT/HCPCS: 36415; 80053; 85025

== ENCOUNTER 2020-10-11 02:14 | Emergency (ER) | payer MEDICARE, OTHER ==
[2020-10-11 02:35] VITALS: BP 154/93
[2020-10-11] MEDS ORDERED: METOCLOPRAMIDE HCL INJ/PF 10 MG/2 ML SDV IV ONE (02:45)
[2020-10-11] MEDS ORDERED: HYDROMORPHONE HCL INJ/PF 2 MG/ML AMPULE IV ONE ×2 (02:46→05:11)
--- NOTE | 2020-10-11 02:48 | ER Document Report ---
ED General - General Chief Complaint: Flank Pain Stated Complaint: LEFT SIDE PAIN Time Seen by Provider: 10/11/20 02:32 Primary Care Provider: JUSTUS CHESTER NP-C [NO LOCAL MD] - Follow up as needed TRAVEL OUTSIDE OF THE [place] IN LAST 30 DAYS: No - HPI Context: Chief Complaint: [Left flank pain] [This is a 59-year-old female presenting to the emergency department complaining of sudden onset of left-sided flank pain that is radiating around to her inguinal crease on the same side. Patient states the pain has been present all day and has gotten worse throughout the evening. Patient states she is nauseated but has not vomited. Patient states that she is done some heavy l ifting recently and has not certain whether or not she is just strained a muscle in her back but states she is in a great deal of pain. Patient states that pain is worse with a deep breath or with movement. Patient states she is been unable to find any alleviating factors for the pain. Patient denies dysuria, urinary frequency, hematuria, history of kidney stones. ] History obtained from [patient] Symptoms began:[During the day yesterday] Onset: [Sudden] Timing: [Sudden] Quality: [Sharp] Intensity: [10 on a scale 0-5] Location: [Left flank] Radiation: [Radiates around to her left groin] Aggravating factors: Deep breath and movement Relieving factors: [none] [Denies] SOB Positive nausea [Denies] vomiting [Denies] sweats [Denies] fever [Denies] cough [Denies] calf or leg swelling or pain - Related Data Allergies/Adverse Reactions: Beta-Blockers (Beta-Adrenergic Bloc Allergy (Intermediate, Verified 06/29/20 08:11) IRREGULAR HEART RATE ondansetron HCl [From Zofran] Allergy (Intermediate, Verified 06/29/20 08:11) Nausea, VOMITING Sulfa (Sulfonamide Antibiotics) Allergy (Intermediate, Verified 06/29/20 08:11) BLISTERS IN MOUTH morphine Allergy (Verified 06/29/20 08:11) NSAIDS (Non-Steroidal Anti-Inflamma Adverse Reaction (Intermediate, Verified 06/29/20 08:11) Past Medical History - General Information source: Patient - Social History Smoking Status: Never Smoker Family History: Reviewed & Not Pertinent, DM, Malignancy - Past Medical History Cardiac Medical History: Reports: Hx Atrial Fibrillation, Hx Coronary Artery Disease, Hx Heart Attack - x 4 2001, 3 9. STENT X1 2001, Hx Hypercholesterolemia, Hx Hypertension Pulmonary Medical History: Denies: Hx Asthma Neurological Medical History: Reports: Hx Seizures - LAST 2016 MEDS CHANGED AT THAT TIME. Denies: Hx Cerebrovascular Accident Endocrine Medical History: Reports: Hx Diabetes Mellitus Type 1, Hx Diabetes M ellitus Type 2 Renal/ Medical History: Denies: Hx Peritoneal Dialysis GI Medical History: Reports: Hx Diverticulitis, Hx Gastroesophageal Reflux Dis ease. 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 Denies: Hx Genitourinary Surgery, Hx Hysterectomy, Hx Mastectomy, Hx Open Heart Surgery, Hx Pacemaker - Immunizations Immunizations up to date: Yes Hx Diphtheria, Pertussis, Tetanus Vaccination: Yes Hx Pneumococcal Vaccination: 01/18/11 Review of Systems - Review of Systems Notes: Review of systems as below unless otherwise stated in HPI. CONSTITUTIONAL [No] fever, [No] chills. EYES [No] eye pain. ENT [No] URI symptoms, [No] sore throat, [No] ear pain. CARDIOVASCULAR [No] chest pain, [No] palpitations, [No] edema. RESPIRATORY [No] Cough, [No] SOB, [No] wheezing. GASTROINTESTINAL [No] abdominal pain, positive nausea, [No] Diarrhea, [No] Vomiting, [No] constipation, [No] melena, [No] rectal bleeding. GENITOURINARY [No] dysuria, [No] urinary frequency, [No] hematuria, [No] urinary urgency, [No] vaginal discharge, [No] vaginal bleeding. Positive flank pain MUSCULOSKELETAL Positive back pain. SKIN [No] Rash. NEUROLOGIC [No] Headache, [No] recent seizures, [No] paralysis,[No] parathesias. ENDOCRINE [No] polyuria. HEMO/LYMPATIC [No] easy brusing PSYCHIATRIC [No] depression. Physical Exam - Vital signs Vitals: Temp Pulse Resp BP Pulse Ox 98.9 F 85 18 154/93 H 98 10/11/20 02:34 10/11/20 02:34 10/11/20 02:34 10/11/20 02:34 10/11/20 02:34 - Notes Notes: CONSTITUTIONAL [Vital signs reviewed, Patient appears uncomfortable, Alert and oriented X 3, Normal stature.] HEAD [Atraumatic, Normocephalic.] EYES [Eyes are normal to inspection, No discharge from eyes, Extraocular muscles intact, Sclera are normal, Conjunctiva are normal.] ENT [External ears normal to inspection, Nose examination normal, Mouth normal to inspection.] NECK [Normal ROM, No jugular venous distention, No meningeal signs, ] RESPIRATORY CHEST [Chest is nontender, Breath sounds normal, No respiratory distress.] CARDIOVASCULAR [RRR, No murmurs, Normal S1 S2, No rub, No gallop.] ABDOMEN [Abdomen is nontender, No pulsatile masses, No other masses, Bowel sounds normal, No distension, No peritoneal signs, No hernias.] BACK [There is no CVA Tenderness, There is no tenderness to palpation, Normal inspection.] UPPER EXTREMITY [Inspection normal, No cyanosis, No clubbing, No edema, LOWER EXTREMITY [Inspection normal, No cyanosis, No clubbing, No edema, No calf tenderness, NEURO [No focal motor deficits, No focal sensory deficits, Speech normal.] SKIN [Skin is warm, Skin is dry, Skin is normal color.] PSYCHIATRIC [Normal affect. ] Course - Re-evaluation Re-evalutation: 10/11/20 06:35 Results of ED MSE discussed with patient. Patient states her pain and nausea are improved. Diagnosis, plan of treatment, follow-up all discussed with patient. All questions were answered prior to discharge. Emergency signs and symptoms, reasons to return to the emergency department discussed with patient. - Vital Signs Vital signs: Temp Pulse Resp BP Pulse Ox 98.9 F 85 18 154/93 H 98 10/11/20 02:34 10/11/20 02:34 10/11/20 02:34 10/11/20 02:34 10/11/20 02:34 - Laboratory Results Result Diagrams: 10/11/20 04:34 10/11/20 04:34 Laboratory Results Interpreted: 10/11/20 10/11/20 10/11/20 03:58 04:34 04:34 Plt Count 110 L Seg Neuts % (Manual) 97 H Lymphocytes % (Manual) 3 L Monocytes % (Manual) 0 L Abs Lymphs (Manual) 0.2 L Abs Monocytes (Manual) 0.0 L Chloride 111 H Carbon Dioxide 20 L BUN 23 H Est GFR ( Amer) 52 L Est GFR (MDRD) Non-Af 43 L Ur Leukocyte Esterase SMALL H Critical Laboratory Results Reviewed: No Critical Results Attending or Supervising Physician who Reviewed Labs: MATIAS VALENCIA IV - Radiology Results Critical Radiology Results Reviewed: Yes Attending or Supervising Physician who Reviewed Radiology: MATIAS VALENCIA IV - CT of the abdomen pelvis shows evidence of diverticulitis Discharge - Discharge Clinical Impression: Diverticulitis Condition: Stable Disposition: HOME, SELF-CARE Additional Instructions: Return to the Emergency Department without delay if any worse. HOME CARE INSTRUCTIONS & INFORMATION: Thank you for choosing us for your medical needs. We hope you're satisfied with the care you received. After you leave, you must properly care for your problem and, at the same time, observe its progress. Any condition can change. Some illnesses can change rapidly over hours or days. If your condition worsens, return to the Emergency Department or see your physician promptly. ABOUT YOUR X-RAYS AND EKG'S: If you had an EKG or X-rays taken, they have been read by the Emergency Physician. The X-rays and EKG's will also be read by a Radiologist or Coper Hand within 24 hours. If discrepancies are noted, you will be notified by telephone. Please be certain the ED has a correct telephone number & address where you can be reached. Also, realize that some fractures or abnormalities do not show up on initial X-rays. If your symptoms continue, see your physician. ABOUT YOUR LABORATORY TEST: If you had laboratory tests, the results have been reviewed by the Emergency Physician. Some test results (for example cultures) may not be available for several days. You will be contacted if any test result shows you need additional treatment. Please be certain the ED has a correct telephone number and address where you can be reached. ABOUT YOUR MEDICATIONS: You will receive instructions on how to take your medicine on the prescription label you receive. Additional information may be provided by the Pharmacy. If you have questions afterwards, call the ED for clarification or further instructions. Some prescribed medications may cause dr brandt. Do not perform tasks such as driving a car or operating machinery without consulting your Pharmacist. If you feel you need a refill of pain medication, your condition will need re-evaluation. Please do not call for a refill of any medication. ABOUT YOUR SIGNATURE: Signature of this document acknowledges to followin. Understanding that you received emergency treatment and that you may be released before al medical problems are known or treated. Please be certain the ED has a correct phone number & address where you can be reached. 2. Acknowledgement that you will arrange for follow-up care as recommended. 3. Authorization for the Emergency Physician to provide information to your follow-up Physician in order to maximize your care. AT ANY TIME, IF YOUR SYMPTOMS CHANGE SIGNIFICANTLY OR WORSEN OR YOU DEVELOP NEW SYMPTOMS, RETURN TO THE EMERGENCY DEPARTMENT IMMEDIATELY FOR RE-EVALUATION. OUR GOAL IS TO PROVIDE EXCELLENT MEDICAL CARE! WE HOPE THAT WE HAVE MET YOUR EXPECTATIONS DURING YOUR EMERGENCY DEPARTMENT VISIT AND THAT YOU FEEL YOU HAVE RECEIVED EXCELLENT CARE! Diverticulitis You have been diagnosed as having diverticulitis. This is an inflammation of a small pouch attached to the colon, called a diverticulum. Many of these small pouches can form on the colon as you get older. They are often caused by constipation. When inflamed or infected, symptoms arise -- usually abdominal pain, constipation or diarrhea, fever, and blood in the stool. Severe diverticulitis may require hospitalization. More mild cases are usually treated with antibiotics and clear liquid diet. As you improve, a diet low in residue (one which forms little stool) is prescribed. When you are better, you should eat a high-fiber diet. Stool softeners (like Metamucil) are usually recommended. Call the doctor or go to the hospital if there is increasing pain, vomiting, high fever, large amounts of blood passed, or if bowel movements cease. Prescriptions: Hydrocodone/Acetaminophen [Carter 5-325 mg Tablet] 1 tab PO Q6HP PRN #15 tablet PRN Reason: pain Promethazine HCl [Phenergan 25 mg Tablet] 25 mg PO Q6HP PRN #10 tablet PRN Reason: nausea Moxifloxacin HCl 400 mg PO QAM 7 Days #7 tablet Promethazine HCl [Phenergan 25 mg Supp.rect] 1 supp NM Q6H #10 supp.rect Referrals: HENRIK,TERRA L, HORSE STUD MANAGER-C [NO LOCAL MD] - Follow up as needed
--- NOTE | 2020-10-11 04:13 | RADIOLOGY REPORT (SQ) ---
CT ABDOMEN AND PELVIS WITHOUT INTRAVENOUS CONTRAST: 10/11/2020 3:10 AM [employer] AND [employer] INSPECTING DISPATCHER HISTORY: 65-year old with left-sided flank pain. COMPARISON: None available TECHNIQUE: Axial contiguous images were obtained from the lung bases to the proximal femurs without intravenous contrast administered. Sagittal and coronal reconstructions were also obtained and reviewed. This exam was performed according to our departmental dose-optimization program, which includes automated exposure control, adjustment of the mA and/or KV according to the patient's size and/or use of iterative reconstruction technique. FINDINGS: No focal consolidative airspace opacities are seen. Dependent atelectasis seen at the right lung base. No discrete pleural effusions are seen. Evaluation of the solid organs is limited by the lack of intravenous contrast. The visualized hepatic parenchyma demonstrates no focal abnormality. The gallbladder demonstrates no evidence of calcified gallstones. The spleen is normal in size. The pancreas is unremarkable. The bilateral adrenal glands are unremarkable. The right kidney is surgically absent. The left kidney demonstrates no evidence of hydronephrosis. No renal or ureteral calculi are seen. The urinary bladder is mildly distended. The uterus is present. The stomach is not well distended. The small bowel loops appear there is inflammatory stranding with several colonic diverticula seen at the descending colon. This is suggestive of acute diverticulitis. There are post procedure changes seen at the right anterior abdominal wall. The appendix is not visualized. There is no evidence of pneumoperitoneum or free fluid. The IVC is unremarkable. The visualized portions of the abdominal aorta are within normal limits of size. There is mild atherosclerotic calcification of aorta and into the iliac arteries. No significantly enlarged lymph nodes are seen in the abdomen or pelvis. Review of the bone show no evidence of any suspicious lytic or blastic lesions. Multilevel degenerative changes are seen within the lumbar spine. IMPRESSION: There is inflammatory stranding at the descending colon diverticula mucosal thickening. This is suggestive of acute diverticulitis. No drainable fluid collection is seen. The right kidney surgically absent. The left kidney demonstrates no evidence of hydronephrosis.
[2020-10-11 05:12] LABS: ALBUMIN 3.8 g/dL (3.5-5.0); ALKALINE PHOSPHATASE 45 U/L (38-126); ANION GAP 9 (5-19); ASPARTATE AMINO TRANSFERASE 25 U/L (14-36); BILIRUBIN,DIRECT 0.1 mg/dL (0.0-0.4); BILIRUBIN,TOTAL 0.3 mg/dL (0.2-1.3); BLOOD UREA NITROGEN 23 mg/dL (7-20); CALCIUM 9.1 mg/dL (8.4-10.2); CARBON DIOXIDE 20 mmol/L (22-30); CHLORIDE 111 mmol/L (98-107); GLUCOSE 107 mg/dL (75-110); POTASSIUM 3.8 mmol/L (3.6-5.0); TOTAL PROTEIN 6.4 g/dL (6.3-8.2)
[2020-10-11 05:17] LABS: HEMATOCRIT 37.3 % (36.0-47.0); HEMOGLOBIN 12.8 g/dL (12.0-15.5); MEAN CORPUSCULAR HEMOGLOBIN 31.9 pg (27.0-33.4); MEAN CORPUSCULAR HGB CONC 34.3 g/dL (32.0-36.0); MEAN CORPUSCULAR VOLUME 93 fl (80-97); PLATELET COUNT 110 10^3/uL (150-450); RED BLOOD COUNT 4.01 10^6/uL (3.72-5.28); RED CELL DISTRIBUTION WIDTH 13.3 % (11.5-14.0)
[2020-10-11 05:30] LABS: APPEARANCE,URINE CLEAR; BILIRUBIN,URINE NEGATIVE (NEGATIVE); COLOR,URINE STRAW; GLUCOSE, URINE NEGATIVE (NEGATIVE); KETONES,URINE NEGATIVE (NEGATIVE); LEUKOCYTE ESTERASE,URINE SMALL (NEGATIVE); NITRITE,URINE NEGATIVE (NEGATIVE); PROTEIN,URINE NEGATIVE (NEGATIVE); UROBILINOGEN,URINE NEGATIVE mg/dL (<2.0)
[2020-10-11 05:33] LABS: ABSOLUTE LYMPHOCYTES# (MANUAL) 0.2 10^3/uL (0.5-4.7); BASOPHILS % (MANUAL) 0 % (0-2); EOSINOPHILS % (MANUAL) 0 % (0-6); LYMPHOCYTES % (MANUAL) 3 % (13-45); MONOCYTES % (MANUAL) 0 % (3-13); SEGMENTED NEUTROPHILS % (MAN) 97 % (42-78); TOTAL CELLS COUNTED 100
[2020-10-11 05:34] LABS: ANISOCYTOSIS SLIGHT; OVALOCYTES SLIGHT; PLATELET COMMENT ADEQUATE; POIKILOCYTOSIS SLIGHT; TOXIC GRANULATION SLIGHT
[2020-10-11] MEDS ORDERED: HYDROCODONE/ACETAMINOPHEN 5-325 MG (6 TAB/ER DISP) PO PRN (05:45)
[2020-10-11] MEDS ORDERED: PROMETHAZINE HCL 25 MG SUPP (4 SUPP/ER DISP) PR ONE (05:46)
[2020-10-11] MEDS ORDERED: LEVOFLOXACIN 750 MG TABLET PO ONE (05:46)
== END 2020-10-11 06:17 | disposition home or self-care (01) ==
LOC: ER 02:14
DX: K57.92 Diverticulitis of intestine, part unspecified, without perforation or abscess without bleeding (principal); R10.9 Unspecified abdominal pain; R11.0 Nausea; M54.9 Dorsalgia, unspecified; I25.10 Atherosclerotic heart disease of native coronary artery without angina pectoris; I10 Essential (primary) hypertension; I25.2 Old myocardial infarction; E11.9 Type 2 diabetes mellitus without complications; Z90.49 Acquired absence of other specified parts of digestive tract; Z90.5 Acquired absence of kidney; Z88.8 Allergy status to other drugs, medicaments and biological substances; Z88.2 Allergy status to sulfonamides; Z88.6 Allergy status to analgesic agent; Z88.5 Allergy status to narcotic agent
CPT/HCPCS: 96376; 99285; 96374; 96375; 36415; 83690; 85025; 80053; 81001; 74176; A9270 ×3; J2765; J1170; J3490